=== PATIENT | male | born 1980 | race Caucasian/White ===

== ENCOUNTER 2020-03-09 15:20 | Emergency (ER) | payer MEDICARE, SELFPAY ==
[2020-03-09 15:27] VITALS: BP 202/99; PULSE 90; RESP 20; TEMP 36.7; O2SAT 96; BMI 51.1
--- NOTE | 2020-03-09 15:33 | W.ED.EXTPRO ---
HPI - Extremity Problem General: Chief complaint: Extremity Problem,Nontraumatic Stated complaint: right foot pain Time Seen by Provider: 03/09/20 15:26 History of Present Illness: HPI Narrative: Patient is a morbidly obese 40-year-old male who comes to the ED with right ankle pain. Pain started about 3 days ago and he does not recall any injuries but did say he was mowing his grass 3 days ago and was getting on and off the mower and he might of twisted his ankle then. He rates the pain a 10 out of 10 and describes it as a throbbing pain. It hurts worse when he puts weight on it. He currently has a pain contract and takes hydrocodone for pain. He says he is taken his hydrocodone today and it did not help with the pain. He also says he took some extra Tylenol at home today and that has not helped with the pain either. Associated symptoms: Deny chest pain, fever(s) or rash Review of Systems Const: Denies: fever, chills or fatigue Eyes: Denies: change in vision or eye discomfort ENMT: Denies: throat pain, painful swallowing, nasal discharge or nasal congestion Card: Denies: chest pain, palpitations, edema, swelling of feet/ankles, shortness of breath on exertion or shortness of breath when lying down Resp: Denies: shortness of breath, productive cough or non-productive cough GI: Denies: abdominal pain, nausea, vomiting, diarrhea, constipation or blood in stool : Denies: flank pain, difficulty urinating, painful urination or blood in urine Musc: Reports: extremity pain (right ankle and lateral to top side of foot); Denies: neck pain, back pain or extremity swelling Skin/Breast: Denies: rash or new lesion Neuro: Denies: headache, numbness in extremities or weakness in extremities PFS ED PFSH: Social History Smoking and tobacco status: current every day smoker Physical Exam Narrative: EXAM NARRATIVE: Patient is a morbidly obese 40-year-old male who is laying on the exam bed when I enter the room. He appears in no acute distress or pain. Const: COMMON NORMALS: no apparent distress, oriented x3 and alert NUTRITIONAL APPEARANCE: obese morbidly obese HENMT: COMMON NORMALS: normocephalic HEAD & SCALP: normocephalic MOUTH: oral and palatal mucosa normal THROAT: posterior oropharynx normal and uvula midline Neck/C-Spine: COMMON NORMALS: supple GENERAL: Yes normal visual inspection Resp: COMMON NORMALS: normal respiratory effort, no retractions, no use of accessory muscles and clear to auscultation bilaterally EFFORT & INSPECTION: Yes able to speak in complete sentences AUSCULTATION: clear to auscultation bilaterally Cardio: COMMON NORMALS: regular rate, regular rhythm, S1 normal heart sound, S2 normal heart sound, no gallops, no clicks, no murmurs and peripheral pulses 2+ throughout RATE: regular rate RHYTHM: regular rhythm HEART SOUNDS: S1 normal and S2 normal PERIPHERAL PULSES: pulses 2+ throughout GI: COMMON NORMALS: normal to inspection, nondistended, normoactive bowel sounds, soft to palpation, non-tender and no masses INSPECTION: Yes central obesity AUSCULTATION: Yes normoactive bowel sounds PALPATION: Yes soft : COMMON NORMALS: Yes no CVA tenderness BLADDER/KIDNEY EXAM: Yes no CVA tenderness Back/Pelvis: COMMON NORMALS: no CVA tenderness Extremity: RIGHT LOWER EXTREMITY: Yes ankle joint Right ankle: Yes inspection (No deformity, no swelling or erythema or warmth.), Yes palpation (Tenderness upon palpation of the lateral and medial malleolus), Yes ROM (Limited due to pain) and Yes neurovascular exam (Intact) and Yes foot & digits Right foot and digits: Yes palpation (Tenderness on the lateral side of foot up to the top midfoot region.) Neuro: COMMON NORMALS: oriented x3 and moves all extremities SENSORIUM/ORIENTATION: Yes alert Skin: COMMON NORMALS: no rashes or lesions noted GENERAL SKIN EXAM: no rashes or lesions noted and dry skin Course Vital Signs: Vital signs: Vital Signs Temperature 98.0 F 03/09/20 15:27 Pulse Rate 92 03/09/20 17:31 Respiratory Rate 20 H 03/09/20 15:27 Blood Pressure 180/108 03/09/20 17:31 Pulse Oximetry 97 03/09/20 17:31 MDM - Extremity (Nontraumatic) MDM Narrative: Medical decision making narrative: Patient is a 40-year-old male who comes to the ED with right ankle pain. Physical exam was remarkable for tenderness upon palpation of the right ankle. X-ray of right ankle showed tiny avulsion fracture of the tip of medial malleolus. Patient was given crutches and told to stay off right foot for the next 3 days and then they can start weightbearing as tolerated. Patient is currently under pain management contract and takes hydrocodone's. I told patient to continue his current pain medication regimen and to ice and elevate right foot. Follow-up with your PCP in 7 days for reevaluation. I also discussed with patient about his blood pressure and told him to discuss blood pressure management with PCP at his 7-day follow-up. Patient understood and agreed with plan. Imaging Data^: Xray Ortho: Attestation: I personally reviewed and interpreted this imaging study as follows: Radiologist's impression: [address] [place] [id number] XRay Report Signed Patient: Michi Rain Unit #: [id number] : 1980 Age/Sex: 40 / M ADM Date: 03/09/20 Loc: ER Room/Bed: Attending Dr: Ordering Provider/Ordering MD: Philip Bryant Date of Service: 03/09/20 Procedure(s): XR ankle RT min 3V* [id number] Accession Number(s): [id number] Report Number: [id number] WS: [id number] ANKLE RIGHT TECHNIQUE: 3 views of the right ankle CLINICAL INFORMATION: ankle pain and tenderness COMPARISON: None. FINDINGS: Marked diffuse soft tissue edema. Normal ankle mortise. Suggestion of a tiny avulsion at the tip of the medial malleolus. Normal lateral malleolus. Talar dome appears normal. XR/XR ankle RT min 3V* [id number] IMPRESSION: Extensive soft tissue edema with a tiny avulsion at the tip of the medial malleolus. Dictated By: Jean Marie Flynn MD Signed By: Jean Marie Flynn MD Signed Date/Time: 03/09/201622 DD/ [address] [address] XRay Report Signed Patient: Michi Rain Unit #: [id number] : 1980 Age/Sex: 40 / M ADM Date: 03/09/20 Loc: ER Room/Bed: Attending Dr: Ordering Provider/Ordering MD: Philip Bryant Date of Service: 03/09/20 Procedure(s): XR foot RT 2V Accession Number(s): [id number] Report Number: [id number] WS: [id number] FOOT RIGHT TECHNIQUE: 2 views of the right foot CLINICAL INFORMATION: pain and tenderness to palpation COMPARISON: None. FINDINGS: Mild diffuse soft tissue edema. Normal anatomic alignment. No acute foot fractures. Tiny avulsion adjacent to the tip of the medial malleolus. Mild hallux valgus XR/XR foot RT IMPRESSION: 1. No acute foot fractures. 2. Soft tissue edema. 3. Tiny avulsion adjacent to the tip of the medial malleolus. Dictated By: Jean Marie Flynn MD Signed By: Jean Marie Flynn MD Signed Date/Time: 03/09/201704 DD/ 02 Discharge Plan Discharge Patient Disposition: Home, Self-Care Clinical Impression: Avulsion fracture of medial malleolus of right tibia Qualifiers: Encounter type: initial encounter Fracture type: closed Qualified Code(s): S82.51XA - Displaced fracture of medial malleolus of right tibia, initial encounter for closed fracture Condition: Stable Discharge Orders: Discharge Order (Routine); Ordered 03/09/20 Ordered By: Philip Bryant Referrals: Mary Reyes, [facility] APPRENTICE-C [Primary Care Provider] - Discharge Diet: Regular Discharge Activity: Increase activity as tolerated and Use walker/crutches as instructed Activity Restrictions/Additional Instructions: Follow-up with your PCP in 7 days for reevaluation. Use crutches to help with ambulation. No weightbearing for 3 days then increase weightbearing as tolerated. Ice rest and elevate right ankle. Continue taking your previously prescribed pain medications. You had elevated blood pressure here in the ED. Followup with your PCP in 7 days to check blood pressure and discuss possible blood pressure medication management. 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
--- NOTE | 2020-03-09 15:54 | XR_ITS ---
WS: [id number] ANKLE RIGHT TECHNIQUE: 3 views of the right ankle CLINICAL INFORMATION: ankle pain and tenderness COMPARISON: None. FINDINGS: Marked diffuse soft tissue edema. Normal ankle mortise. Suggestion of a tiny avulsion at the tip of t he medial malleolus. Normal lateral malleolus. Talar dome appears normal. XR/XR ankle RT min 3V* [id number] IMPRESSION: Extensive soft tissue edema with a tiny avulsion at the tip of the medial malle olus.
--- NOTE | 2020-03-09 16:10 | PC.NURSE ---
portable xray at bedside
--- NOTE | 2020-03-09 16:12 | XR_ITS ---
WS: [id number] FOOT RIGHT TECHNIQUE: 2 views of the right foot CLINICAL INFORMATION: pain and tenderness to palpation COMPARISON: None. FINDINGS: Mild diffuse soft tissue edema. Normal anatomic alignment. No acute foot fractures. Tiny avulsion adj acent to the tip of the medial malleolus. Mild hallux valgus XR/XR foot RT 2V [id number] IMPRESSION: 1. No acute foot fractures. 2. Soft tissue edema. 3. Tiny avulsion adjacent to the tip of the medial malleolus.
[2020-03-09] MEDS: ketorolac 60 mg/2 mL INJ IM (16:23)
[2020-03-09 17:31] VITALS: BP 180/108; PULSE 92; O2SAT 97
== END 2020-03-09 17:30 | disposition home or self-care (01) ==
PROVIDERS: Emergency Provider Physician Assistant; PCP Nurse Practitioner
DX: S82.51XA Displaced fracture of medial malleolus of right tibia, initial encounter for closed fracture (principal); X58.XXXA Exposure to other specified factors, initial encounter; E66.9 Obesity, unspecified; Z68.43 Body mass index [BMI] 50.0-59.9, adult; F17.200 Nicotine dependence, unspecified, uncomplicated
CPT/HCPCS: 12345; 73610; 73620; 96372; 99281; 99283; E0114; J1885

== ENCOUNTER 2020-07-05 08:25 | Emergency (ER) | payer MEDICARE, SELFPAY ==
[2020-07-05 08:29] VITALS: BP 237/141; PULSE 115; RESP 18; TEMP 36.7; O2SAT 94; BMI 48.6
[2020-07-05 08:35] VITALS: BP 185/106; PULSE 83; RESP 17; O2SAT 96
--- NOTE | 2020-07-05 08:35 | XR_ITS ---
WS: [id number] PORTABLE CHEST HISTORY: Hypertension COMPARISON: 09/12/2019 Lungs are clear and well expanded. No pleural effusion or pneumothorax. Cardiac size: Normal. Mediastinum/Aorta: Normal mediastinum. No osseous abnormality seen. XR/XR chest 1V portable [id number] IMPRESSION: Unremarkable portable chest.
--- NOTE | 2020-07-05 08:35 | ECG_ITS ---
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 Measurements Intervals Advance Rate: 84 P: 49 PA: 164 QRS: 23 QRSD: 91 T: 50 QT: 354 QTc: 420 Interpretive Statements SINUS RHYTHM Compared to ECG 09/12/2019 15:00:38 ST (T wave) deviation no longer present Electronically Signed On 07-05-2020 21:06:40 CDT by Ryan Edwards M.D. [email or web address] clinicC[facility] [employer]store/[id number] f
--- NOTE | 2020-07-05 08:42 | W.ED.DIZZY ---
HPI - Dizziness General: Chief Complaint: Dizziness Stated Complaint: high bp/dizziness Time Seen by Provider: 07/05/20 08:31 History of Present Illness: HPI Narrative: This patient is a 40-year-old male presents today with dizziness and high blood pressure. He said all day yesterday and last night he felt dizzy and shaky and knew that his blood pressure was high. He has been on blood pressure medicine in the past but not for quite some time after his primary care physician moved to a different clinic. He does not know what he was on before. He also has had some sharp chest pains and palpitations. He said that is been going on for a long time. Occasionally when that happens he gets dizzy and has to lay down. He also complains of acid reflux. He said when he lays down he feels acid come up into his throat and it mcnamara. He takes medicine for acid reflux but does not seem to be helping. On arrival his blood pressure was 237/144 with a heart rate of 115. On recheck it was 185/106 with a heart rate of 83. He is not currently having any chest pain or symptoms. Associated symptoms: Reports chest pain and palpitations; Denies chills, headache(s), malaise, nausea or vomiting Associated neuro symptoms: Deny numbness in extremities Review of Systems General: Reports: 10 or more systems reviewed and unremarkable except in HPI and below Const: Denies: fever(s), chills, fatigue or malaise Eyes: Denies: change in vision ENMT: Denies: odynophagia Card: Reports: chest pain, palpitations, dyspnea on exertion and orthopnea; Denies: swelling of feet/ankles Resp: Denies: dyspnea, productive cough or non-productive cough GI: Reports: heartburn; Denies: abdominal pain, nausea or vomiting : Denies: flank pain Musc: Denies: neck pain or back pain Skin/Breast: Denies: rash Neuro: Denies: headache(s), numbness in extremities or weakness in extremities Eleazar/Lymph: Denies: easy bruising or easy bleeding PFSH ED PFSH: Social History Smoking and tobacco status: current every day smoker Physical Exam Const: COMMON NORMALS: no acute distress, patient oriented x3, no limitations and alert GENERAL APPEARANCE: cooperative and comfortable NUTRITIONAL APPEARANCE: obese morbidly obese HENMT: HEAD & SCALP: normal to inspection FACE & SINUS: normal facial exam Eye: GENERAL EYE: appearance normal, both eyes and all related structures Neck/C-Spine: COMMON NORMALS: supple, no meningeal signs and no JVD Chest: COMMONS NORMALS: normal inspection of the chest Resp: COMMON NORMALS: normal respiratory effort, No use of accessory muscles and clear to auscultation bilaterally AUSCULTATION: clear to auscultation bilaterally Cardio: COMMON NORMALS: no JVD, regular rate, regular rhythm and No murmurs present (Cardio) RATE: regular rate RHYTHM: regular rhythm GI: COMMON NORMALS: Normal to inspection, nondistended, normoactive bowel sounds present, Soft to palpation and non-tender INSPECTION: Yes normal to inspection AUSCULTATION: Yes normoactive bowel sounds PALPATION: Yes Soft to palpation Back/Pelvis: COMMON NORMALS: thoracic and lumbar spine normal to inspection Extremity: COMMON NORMALS: normal to inspection Neuro: COMMON NORMALS: patient oriented x3, moves all extremities, no focal motor deficits and no sensory deficits noted SENSORIUM/ORIENTATION: Yes alert MENINGEAL SIGNS: Yes no meningeal signs Psych: COMMON NORMALS: mental status grossly normal, cooperative and normal affect Skin: COMMON NORMALS: no rashes or lesions noted and turgor normal GENERAL SKIN EXAM: no rashes or lesions noted and turgor normal Course ED course: Patient's initial blood pressure at triage was high however his other blood pressures, without treatment, were much more acceptable. They were still elevated but not critically so. Symptoms resolved. He was started on lisinopril. He was given a referral for primary care and appointment was made for him. I also changed his omeprazole to lansoprazole twice a day. Vital Signs: Vital signs: Vital Signs Temperature 98.1 F 07/05/20 08:29 Pulse Rate 79 07/05/20 11:28 Respiratory Rate 19 H 07/05/20 11:28 Blood Pressure 161/98 07/05/20 11:28 Pulse Oximetry 96 07/05/20 11:28 MDM - Dizziness Lab Data: Labs: Lab Results 07/05/20 07/05/20 07/05/20 Range/Units 08:33 08:33 08:33 WBC 9.2 (4.0-10.0) 10^3/ uL RBC 5.46 H (4.1-5.3) 10^6/u L Hgb 17.0 H (11.7-16.6) g/dL Hct 51.9 (42.0-52.0) % MCV 95.1 H (80-94) fL MCH 31.1 (28.0-34.0) pg MCHC 32.8 (30.0-36.0) g/dL RDW 14.3 (12.1-15.1) % Plt Count 359 (130-400) 10^3/c mm MPV 10.1 (7.4-10.4) fL Neut % (Auto) 50.3 % Lymph % (Auto) 36.3 % [place] % (Auto) 9.2 % Eos % (Auto) 2.4 % Baso % (Auto) 0.5 % Neut # (Auto) 4.61 (1.8-7.7) 10^3/u L Lymph # (Auto) 3.3 (0.8-4.8) 10^3/u L [place] # (Auto) 0.8 (0.2-0.9) 10^3/u L Eos # (Auto) 0.2 (0.0-0.8) 10^3/u L Baso # (Auto) 0.1 (0.0-0.1) 10^3/u L Nucleated RBC % (a uto) 0 % Nucleated RBCs # 0.0 /100WBC PT 12.10 (12.1-14.9) SECO NDS INR 0.87 (0.8-1.2) Sodium 139 (136-145) mmol/L Potassium 3.9 (3.5-5.1) mmol/L Chloride 102 (98-107) mmol/L Carbon Dioxide 27 (22-29) mmol/L Anion Gap 13.9 (5-19) BUN 7 (6-20) mg/dL Creatinine 0.9 (0.7-1.2) mg/dL GFR Calculation 93.5 (90-130) mL/min Glucose 172 H (65-115) mg/dL Calculated Osmolal ity 288 (285-295) mOsm/k g Calcium 9.1 (8.5-10.5) mg/dL Total Bilirubin 0.3 (0.15-1.2) mg/dL AST 25 (0-40) U/L ALT 57 H (0-41) U/L Alkaline Phosphata se 61 (40-130) IU/L Troponin T Baselin e (0-15) ng/L Troponin T 120 Min wain[place] (0-15) ng/L Delta Troponin T (0-10) ABS# NT-Pro-B Natriuret Pep 56 (0-125) pg/mL Total Protein 7.5 (6.6-8.7) g/dL Albumin 4.5 (3.5-5.2) g/dL Globulin 3.0 (1.3-4.6) g/dL Lipase 13 (13-60) U/L Urine Color (Yellow) Urine Appearance (CLEAR) Urine pH (5-7) Ur Specific Gravit y (1.005-1.030) Urine Protein (Negative) Urine Glucose (UA) (Normal) Urine Ketones (Negative) Urine Blood (Negative) Urine Nitrate (Negative) Urine Bilirubin (NEGATIVE) Urine Urobilinogen (Negative) mg/dL Ur Leukocyte Juliana ase (Negative) 07/05/20 07/05/20 07/05/20 Range/Units 08:33 08:51 10:34 WBC (4.0-10.0) 10^3/ uL RBC (4.1-5.3) 10^6/u L Hgb (11.7-16.6) g/dL Hct (42.0-52.0) % MCV (80-94) fL MCH (28.0-34.0) pg MCHC (30.0-36.0) g/dL RDW (12.1-15.1) % Plt Count (130-400) 10^3/c mm MPV (7.4-10.4) fL Neut % (Auto) % Lymph % (Auto) % [place] % (Auto) % Eos % (Auto) % Baso % (Auto) % Neut # (Auto) (1.8-7.7) 10^3/u L Lymph # (Auto) (0.8-4.8) 10^3/u L [place] # (Auto) (0.2-0.9) 10^3/u L Eos # (Auto) (0.0-0.8) 10^3/u L Baso # (Auto) (0.0-0.1) 10^3/u L Nucleated RBC % (a uto) % Nucleated RBCs # /100WBC PT (12.1-14.9) SECO NDS INR (0.8-1.2) Sodium (136-145) mmol/L Potassium (3.5-5.1) mmol/L Chloride (98-107) mmol/L Carbon Dioxide (22-29) mmol/L Anion Gap (5-19) BUN (6-20) mg/dL Creatinine (0.7-1.2) mg/dL GFR Calculation (90-130) mL/min Glucose (65-115) mg/dL Calculated Osmolal ity (285-295) mOsm/k g Calcium (8.5-10.5) mg/dL Total Bilirubin (0.15-1.2) mg/dL AST (0-40) U/L ALT (0-41) U/L Alkaline Phosphata se (40-130) IU/L Troponin T Baselin e 13 (0-15) ng/L Troponin T 120 Min wainwright 10.91 (0-15) ng/L Delta Troponin T -2.09 L (0-10) ABS# NT-Pro-B Natriuret Pep (0-125) pg/mL Total Protein (6.6-8.7) g/dL Albumin (3.5-5.2) g/dL Globulin (1.3-4.6) g/dL Lipase (13-60) U/L Urine Color Yellow (Yellow) Urine Appearance Clear (CLEAR) Urine pH 7.5 (5-7) Ur Specific Gravit y 1.010 (1.005-1.030) Urine Protein Neg (Negative) Urine Glucose (UA) Norm (Normal) Urine Ketones Negative (Negative) Urine Blood Neg (Negative) Urine Nitrate Negative (Negative) Urine Bilirubin Neg (NEGATIVE) Urine Urobilinogen Norm (Negative) mg/dL Ur Leukocyte Juliana ase Negative (Negative) EKG Data^: EKG 1: EKG interpretation time: 08:39 Interpretation: Normal sinus rhythm with a rate of 84. Normal intervals. Normal axis. No ST changes. Discharge Plan Discharge Patient Disposition: Home Clinical Impression: Hypertension Qualifiers: Hypertension type: unspecified Qualified Code(s): I10 - Essential (primary) hypertension Acid reflux Qualifiers: Esophagitis presence: esophagitis presence not specified Qualified Code(s): K21.9 - Gastro-esophageal reflux disease without esophagitis Obesity Qualifiers: Obesity type: unspecified obesity type Obesity classification: adult class 3 (BMI >= 40) Serious obesity comorbidity presence: unspecified whether serious comorbidity present Body mass index: BMI 45.0-49.9 Qualified Code(s): E66.01 - Morbid (severe) obesity due to excess calories Condition: Stable Prescriptions: New lansoprazole 30 mg capsule,delayed release(DR/EC) 30 mg PO BID Qty: 60 RF: 0 lisinopril 20 mg tablet 20 mg PO DAILY Qty: 30 RF: 0 Discontinued omeprazole 20 mg Tablet,Delayed Release (Dr/Ec) 20 mg PO DAILY RF: 0 No Action gabapentin 600 mg tablet 600 mg PO TID RF: 0 hydrocodone-acetaminophen 10-325 mg tablet 1 tab PO Q6H PRN (Reason: Pain) RF: 0 Discharge Orders: Discharge Order (Routine); Ordered 07/05/20 Ordered By: Sherice Currie Discharge Diet: Low Salt Discharge Activity: Resume usual activity Patient Instructions: Gastroesophageal Reflux Disease (ED), Hypertension (ED) Activity Restrictions/Additional Instructions: Take the blood pressure medicine as prescribed. Stop the omeprazole and start the lansoprazole for your acid reflux symptoms. Avoid eating late at night or within a few hours of going to bed. Follow-up with a primary care provider for further management of your blood pressure. The emergency department housing case manager can assist you with this. 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
[2020-07-05 08:43] LABS: Basophils # 0.1 10^3/uL (0.0-0.1); Basophils % 0.5 %; Eosinophils # 0.2 10^3/uL (0.0-0.8); Eosinophils % 2.4 %; Hematocrit 51.9 % (42.0-52.0); Lymphocytes # 3.3 10^3/uL (0.8-4.8); Lymphocytes % 36.3 %; Mean Corpuscular HGB Conc 32.8 g/dL (30.0-36.0); Mean Corpuscular Hemoglobin 31.1 pg (28.0-34.0); Mean Corpuscular Volume 95.1 fL (80-94); Mean Platelet Volume 10.1 fL (7.4-10.4); Monocytes # 0.8 10^3/uL (0.2-0.9); Monocytes % 9.2 %; Neutrophils # 4.61 10^3/uL (1.8-7.7); Neutrophils % 50.3 %; Nucleated Red Blood Cells % 0 %; Platelet Count 359 10^3/cmm (130-400); Red Blood Count 5.46 10^6/uL (4.1-5.3); Red Cell Distribution Width 14.3 % (12.1-15.1); White Blood Count 9.2 10^3/uL (4.0-10.0)
[2020-07-05 08:52] LABS: INR 0.87 (0.8-1.2)
[2020-07-05 09:00] LABS: Troponin(5th) Baseline 13 ng/L (0-15)
[2020-07-05 09:07] LABS: Add Urine Microscopic? NO
[2020-07-05 09:08] LABS: Alanine Aminotransferase 57 U/L (0-41); Albumin Level 4.5 g/dL (3.5-5.2); Alkaline Phosphatase 61 IU/L (40-130); Anion Gap 13.9 (5-19); Aspartate Amino Transferase 25 U/L (0-40); Blood Urea Nitrogen 7 mg/dL (6-20); Calcium 9.1 mg/dL (8.5-10.5); Carbon Dioxide 27 mmol/L (22-29); Chloride 102 mmol/L (98-107); Glomerular Filtration Rate 93.5 mL/min (90-130); Glucose 172 mg/dL (65-115); Lipase 13 U/L (13-60); NT Pro B Type Natriuretic Pept 56 pg/mL (0-125); Osmolality Calculated 288 mOsm/kg (285-295); Potassium 3.9 mmol/L (3.5-5.1); Sodium 139 mmol/L (136-145); Total Bilirubin 0.3 mg/dL (0.15-1.2); Total Protein 7.5 g/dL (6.6-8.7)
[2020-07-05 09:16] LABS: Bilirubin Urine Neg (NEGATIVE); Blood Urine Neg (Negative); Glucose Urine UA Norm (Normal); Ketones Urine Negative (Negative); Leukocyte Esterase Urine Negative (Negative); Nitrate Urine Negative (Negative); Protein Urine Neg (Negative); Urine Appearance Clear (CLEAR); Urine Color Yellow (Yellow); Urobilinogen Urine Norm (Negative); pH Urine 7.5 (5-7)
[2020-07-05 10:30] VITALS: BP 150/91; PULSE 77; RESP 16; O2SAT 96
--- NOTE | 2020-07-05 10:35 | ECG_ITS ---
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 Measurements Intervals [place] Rate: 70 P: 47 WI: 159 QRS: 26 QRSD: 94 T: 48 QT: 375 QTc: 405 Interpretive Statements SINUS RHYTHM POSSIBLE RIGHT VENTRICULAR CONDUCTION DELAY [RSR (QR) IN V1/V2] Compared to ECG 07/05/2020 08:38:15 No significant changes Electronically Signed On 07-05-2020 21:16:01 CDT by Ryan Edwards M.D. [id number]
[2020-07-05 11:04] LABS: Troponin 5 2HR 10.91 ng/L (0-15)
[2020-07-05 11:13] LABS: Troponin 5 2HR Delta -2.09 ABS# (0-10)
--- NOTE | 2020-07-05 11:25 | DCPLANNER ---
restaurant general manager was asked to help patient get established with a primary care physician. restaurant general manager spoke with patient, he stated that he would like help in getting a primary care physician. restaurant general manager called the [facility], spoke with Allison, a follow up appointment was scheduled for Friday, July 10, 2020 at 9:20 with STEAM FITTER SUPERVISOR, Leatha Cifuentes. restaurant general manager informed patient of the scheduled appointment, patient stated that he would attend the appointment.
[2020-07-05 11:28] VITALS: BP 161/98; PULSE 79; RESP 19; O2SAT 96
--- NOTE | 2020-07-12 14:27 | DCPLANNER ---
Patient had an appointment scheduled for 07.10.12 with [facility] Wale Koo - patient did not attend the appointment.
== END 2020-07-05 11:28 | disposition home or self-care (01) ==
PROVIDERS: Emergency Provider Emergency Medicine
DX: I10 Essential (primary) hypertension (principal); K21.9 Gastro-esophageal reflux disease without esophagitis; E66.01 Morbid (severe) obesity due to excess calories; Z68.42 Body mass index [BMI] 45.0-49.9, adult; F17.210 Nicotine dependence, cigarettes, uncomplicated; R07.9 Chest pain, unspecified
CPT/HCPCS: 12345; 36415; 71045; 80053; 81003; 83690; 83880; 84484; 85025; 85610; 93005; 96374; 96375; 99283; 99284

== ENCOUNTER → 2021-05-09 10:35 | Outpatient (BNVA) | payer MEDICARE, MEDICAID, SELFPAY | PROVIDERS: Visit Provider Nurse Practitioner Family | DX: I10 Essential (primary) hypertension (principal); L02.211 Cutaneous abscess of abdominal wall; K21.9 Gastro-esophageal reflux disease without esophagitis | CPT/HCPCS: 80053; 80061; 84443; 85025; 87070; 87075; 87205 ==

== ENCOUNTER → 2021-06-10 10:40 | Outpatient (BNVA) | payer MEDICARE, MEDICAID, SELFPAY | PROVIDERS: Visit Provider Nurse Practitioner Family | DX: I10 Essential (primary) hypertension (principal); E66.01 Morbid (severe) obesity due to excess calories; K21.9 Gastro-esophageal reflux disease without esophagitis; Z68.43 Body mass index [BMI] 50.0-59.9, adult; F17.210 Nicotine dependence, cigarettes, uncomplicated | CPT/HCPCS: 85025 ==

== ENCOUNTER → 2021-09-12 14:10 | Outpatient (BNVA) | payer MEDICARE, MEDICAID, SELFPAY | PROVIDERS: PCP Nurse Practitioner Family; Referring Provider Nurse Practitioner Family; Visit Provider Anesthesiology Pain Medicine | DX: G89.29 Other chronic pain (principal); M54.2 Cervicalgia; M54.50 Low back pain, unspecified; Z79.891 Long term (current) use of opiate analgesic | CPT/HCPCS: 99203 ==

== ENCOUNTER → 2021-10-10 13:57 | Outpatient (BNVA) | payer MEDICARE, MEDICAID, SELFPAY | PROVIDERS: PCP Nurse Practitioner Family; Visit Provider Anesthesiology Pain Medicine | DX: G89.29 Other chronic pain (principal); M47.816 Spondylosis without myelopathy or radiculopathy, lumbar region; M48.062 Spinal stenosis, lumbar region with neurogenic claudication; M47.812 Spondylosis without myelopathy or radiculopathy, cervical region | CPT/HCPCS: 99213 ==

== ENCOUNTER 2021-10-28 08:37 | Outpatient (CLI) | payer MEDICARE, MEDICAID, SELFPAY ==
--- NOTE | 2021-10-28 08:50 | XR_ITS ---
WS: [id number] LATERAL LUMBAR SPINE: 3 view. Lateral radiographs are performed in upright neutral, flexion and extension to the patient's toleranc e. HISTORY: Chronic neck and back pain. No injury. COMPARISON: 03/31/2016 2 mm retrolisthesis of L3 and L4 without instability. Similar to the prior study. Vertebral body heights and disc spaces are normal. Mild facet joint arthritis L4-5 and L5-S1. XR/XR lumbar spine f/e only [id number] IMPRESSION: 1. No lumbar spine instability. 2. 2 mm retrolisthesis of L3 and L4.
--- NOTE | 2021-10-28 10:00 | XR_ITS ---
WS: [id number] CERVICAL SPINE 5 VIEWS HISTORY: M47.812 - Spondylosis without myelopathy or radiculopathy... COMPARISON: 04/18/2019. Cervical spine in AP, lateral. Lateral in neutral, flexion and extension. Straightening and reversal of the normal cervical lordosis. Reversal centered at C4-5. Unchanged less than 2 mm anterolisthesis of C2. Mild disc space narrowing at C4-5, C5-6 and C6-7 with small endplat e osteophytes. No fractures. Facet joints are normally aligned. With flexion and extension no instabi lity is demonstrated. Very similar appearance to the prior examination from 04/26/2019. No fracture. Lateral masses are aligned odontoid is intact. XR/XR cervical spine 4-5V [id number] IMPRESSION: 1. Straightening and reversal normal cervical lordosis. 2. No instability with flexion or extension. 3. Moderate spondylitic changes from C4-5 to C6-7.
== END 2021-10-28 08:38 | disposition home or self-care (01) ==
PROVIDERS: PCP Nurse Practitioner Family; Visit Provider Anesthesiology Pain Medicine
DX: M47.812 Spondylosis without myelopathy or radiculopathy, cervical region (principal); M47.816 Spondylosis without myelopathy or radiculopathy, lumbar region; M54.2 Cervicalgia
CPT/HCPCS: 72050; 72120

== ENCOUNTER → 2021-11-07 09:33 | Outpatient (BNVA) | payer MEDICARE, MEDICAID, SELFPAY | PROVIDERS: PCP Nurse Practitioner Family; Visit Provider Anesthesiology Pain Medicine | DX: G89.29 Other chronic pain (principal); M47.812 Spondylosis without myelopathy or radiculopathy, cervical region; M50.90 Cervical disc disorder, unspecified, unspecified cervical region; M47.816 Spondylosis without myelopathy or radiculopathy, lumbar region; E66.01 Morbid (severe) obesity due to excess calories; Z68.43 Body mass index [BMI] 50.0-59.9, adult | CPT/HCPCS: 99214 ==

== ENCOUNTER → 2022-03-07 12:20 | Outpatient (BNVA) | payer MEDICARE, MEDICAID, SELFPAY | PROVIDERS: PCP Nurse Practitioner Family; Visit Provider Nurse Practitioner Family | DX: I10 Essential (primary) hypertension (principal); E66.01 Morbid (severe) obesity due to excess calories; M54.2 Cervicalgia; M54.9 Dorsalgia, unspecified; G89.29 Other chronic pain; K21.9 Gastro-esophageal reflux disease without esophagitis; Z79.899 Other long term (current) drug therapy | CPT/HCPCS: 80053; 80061; 82306; 82607; 83036; 84443; 85025 ==

== ENCOUNTER → 2022-04-01 09:18 | Outpatient (BNVA) | payer MEDICARE, MEDICAID, SELFPAY | PROVIDERS: PCP Nurse Practitioner Family; Visit Provider Nurse Practitioner Family | DX: E87.5 Hyperkalemia (principal) | CPT/HCPCS: 80048 ==

== ENCOUNTER 2022-04-21 18:01 | Emergency (ER) | payer MEDICARE, MEDICAID, SELFPAY ==
[2022-04-21 18:20] VITALS: BP 128/85; PULSE 96; RESP 19; TEMP 36.6; O2SAT 96; BMI 51.7
[2022-04-21 18:30] VITALS: BP 136/82; PULSE 83; RESP 16; O2SAT 96
--- NOTE | 2022-04-21 18:33 | XRR_ITS ---
PROCEDURE INFORMATION: Exam: XR Left Tibia and Fibula Exam date and time: 04/21/2022 6:38 PM Age: 42 years old Clinical indication: Pain; Lower leg; Left; Additional info: Injury TECHNIQUE: Imaging protocol: XR Left tibia and fibula. Views: 2 views. COMPARISON: CR Knee 3 views, LEFT* [id number] 02/23/2016 6:17 PM FINDINGS: Bones/joints: Osseous structures are intact. Negative for fracture. Soft tissues: Normal. XR/XR tibia fibula LT 2V [id number] IMPRESSION: No acute findings.
--- NOTE | 2022-04-21 18:33 | XRR_ITS ---
PROCEDURE INFORMATION: Exam: XR Left Ankle Exam date and time: 04/21/2022 6:38 PM Age: 42 years old Clinical indication: Pain; Ankle; Left; Additional info: Injury TECHNIQUE: Imaging protocol: XR Left ankle. Views: 3 or more views. COMPARISON: CR Knee 3 views, LEFT* [id number] 02/23/2016 6:17 PM FINDINGS: Bones/joints: Osseous structures are intact. Negative for fracture. Joint spaces are preserved. Soft tissues: Normal. XR/XR ankle LT min 3V* [id number] IMPRESSION: No acute findings.
--- NOTE | 2022-04-21 18:33 | XRR_ITS ---
PROCEDURE INFORMATION: Exam: XR Left Foot Exam date and time: 04/21/2022 6:38 PM Age: 42 years old Clinical indication: Pain; Foot; Left; Additional info: Injury TECHNIQUE: Imaging protocol: XR Left foot. Views: 3 or more views. COMPARISON: CR Knee 3 views, LEFT* [id number] 02/23/2016 6:17 PM FINDINGS: Bones/joints: Osseous structures are intact. Negative for fracture. Joint spaces are preserved. Soft tissues: Normal. XR/XR foot LT min 3V* [id number] IMPRESSION: No acute findings.
--- NOTE | 2022-04-21 18:34 | W.ED.EXTPRO ---
HPI - Extremity Problem General: Chief complaint: Extremity Injury, Lower Stated complaint: Left Ankle Injury Time Seen by Provider: 04/21/22 18:33 History of Present Illness: 42-year-old male patient comes in with injury to the left ankle. On exam patient has no obvious deformity. Minimal swelling is noted. Pulses and cap refill is intact. Patient appears in mild pain at rest. Associated symptoms: Deny chest pain or rash Review of Systems General: Reports: 10 or more systems reviewed and unremarkable except in HPI and below Card: Denies: chest pain Resp: Denies: dyspnea Musc: Reports: extremity pain and joint pain Skin/Breast: Denies: rash PFSH ED PFSH: Social History Smoking and tobacco status: current every day smoker cigarettes Packs smoked per day: 0.50 Years cigarettes smoked: 20 Alcohol intake: current Alcohol intake frequency: holidays/special occasions only Alcohol type: beer Lives independently: Yes Marital status: service: No Current occupational status: disabled History of recent travel: No Current gender identity: Male Special judi needs: No Agree to transfusion: Yes Physical Exam Const: COMMON NORMALS: no acute distress Resp: COMMON NORMALS: normal respiratory effort Cardio: COMMON NORMALS: regular rate RATE: regular rate Extremity: LEFT LOWER EXTREMITY: Yes ankle joint (Mild swelling, no deformity, distal pulses and sensation intact.) Left ankle: Yes inspection, Yes palpation and Yes ROM Skin: COMMON NORMALS: no rashes or lesions noted GENERAL SKIN EXAM: no rashes or lesions noted Course Vital Signs: Vital signs: Vital Signs Temperature 97.9 F 04/21/22 18:20 Pulse Rate 83 04/21/22 18:30 Respiratory Rate 16 04/21/22 18:30 Blood Pressure 136/82 04/21/22 18:30 Pulse Oximetry 96 04/21/22 18:30 MDM - Extremity (Nontraumatic) Medical Decision Making 42-year-old man comes in with injury to the left ankle. On exam patient has some lateral swelling, no deformity, distal pulses and sensation intact. Differential diagnosis includes fracture, sprain, contusion. X-ray of the ankle, foot, and tib-fib indicated no fracture or dislocation. Reviewed exam with patient with recommendations for treatment for sprain. Recommend patient follow-up with primary care for further instruction. Patient reported understanding. Discharge Plan Discharge Patient Disposition: Home Clinical Impression: Ankle sprain and strain Condition: Stable Prescriptions: New ibuprofen 800 mg tablet 800 mg PO Q6H PRN (Reason: pain) Qty: 20 0RF No Action pantoprazole [Protonix] 40 mg tablet,delayed release (DR/EC) 40 mg PO DAILY Qty: 30 5RF lisinopril 20 mg tablet 20 mg PO BID Qty: 60 5RF ergocalciferol (vitamin D2) 1,250 mcg (50,000 unit) capsule 1,250 mcg PO .weekly Qty: 12 1RF Discharge Orders: Discharge ED (Routine); Ordered 04/21/22 Ordered By: Aiden Solorzano Referrals: Leatha Cifuentes FNP [Primary Care Provider] - Patient Instructions: Opioid Safety Activity Restrictions/Additional Instructions: Home and rest. Ice or heat to help with pain. Use acetaminophen and ibuprofen for further pain relief. Juanjo wrap for comfort and swelling. Use crutches until you can bear weight comfortably. Follow-up with primary care in 2 to 3 days for recheck. Return to ER for new concerns. Stand Alone Forms: Work/School Release Coding Level of Care Code ED Waistband Setter Lockstitch for Janeth Sanchez
[2022-04-21] MEDS: ibuprofen 800 mg tablet PO (19:23)
== END 2022-04-21 19:24 | disposition home or self-care (01) ==
PROVIDERS: Emergency Provider Nurse Practitioner Family; PCP Nurse Practitioner Family
DX: S93.402A Sprain of unspecified ligament of left ankle, initial encounter (principal); X58.XXXA Exposure to other specified factors, initial encounter
CPT/HCPCS: 73590; 73610; 73630; 99283; E0114

== ENCOUNTER → 2022-07-24 12:12 | Outpatient (BNVA) | payer MEDICARE, MEDICAID, SELFPAY | PROVIDERS: PCP Nurse Practitioner Family; Visit Provider Nurse Practitioner Family | DX: I10 Essential (primary) hypertension (principal); E66.01 Morbid (severe) obesity due to excess calories; R06.02 Shortness of breath | CPT/HCPCS: 71046; 80053; 80061; 82306; 82607; 83735; 84439; 84443; 85025 ==

== ENCOUNTER 2022-10-25 05:37 | Emergency (ER) | payer MEDICARE, MEDICAID, SELFPAY ==
[2022-10-25 05:41] VITALS: BMI 48.6
[2022-10-25 05:45] VITALS: BP 158/68; PULSE 78; RESP 18; TEMP 37.1; O2SAT 97
--- NOTE | 2022-10-25 05:49 | ECG_ITS ---
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 Measurements Intervals [place] Rate: 75 P: 52 [place]: 168 QRS: 28 QRSD: 94 T: 51 QT: 363 QTc: 406 Interpretive Statements SINUS RHYTHM POSSIBLE RIGHT VENTRICULAR CONDUCTION DELAY [RSR (QR) IN V1/V2] Compared to ECG 07/05/2020 10:21:57 No significant changes Electronically Signed On 10-25-2022 11:03:37 JD EDWARDS by Mich Patel M.D. [id number] f
--- NOTE | 2022-10-25 06:01 | XRR_ITS ---
PROCEDURE INFORMATION: Exam: XR Chest Exam date and time: 10/25/2022 7:13 AM Age: 42 years old Clinical indication: Shortness of breath; Additional info: Cp TECHNIQUE: Imaging protocol: Radiologic exam of the chest. Views: 1 view. COMPARISON: CR XR chest 2V* [id number] 07/24/2022 12:21 PM FINDINGS: Lungs: Unremarkable. No consolidation. Pleural spaces: Unremarkable. No pleural effusion. No pneumothorax. Heart/Mediastinum: Unremarkable. No cardiomegaly. Bones/joints: Unremarkable. XR/XR chest 1V portable [id number] IMPRESSION: No acute findings.
--- NOTE | 2022-10-25 06:06 | W.ED.CHESTPA ---
Documented by User: Bay Valle MD 10/25/22 06:08 HPI - Chest Pain General: Chief Complaint: Chest Pain Stated Complaint: Weakness\BP\Chest Pains\Fainted Time Seen by Provider: 10/25/22 05:59 Source: patient Mode of arrival: ambulatory Limitations: no limitations History of Present Illness: 42-year-old male who states that he has been having chest pain or shortness of breath over the last 3 days. He states he had a syncopal episode 3 days ago. He denies any worsening improving factors. He denies any fevers had a mild cough. Associated symptoms: Deny abdominal pain, dyspnea, fever(s), nausea or vomiting Review of Systems Const: Denies: fever(s), chills, body aches or change in appetite Eyes: Denies: blurry vision or eye discomfort ENMT: Denies: throat pain or dental pain Card: Reports: chest pain Resp: Denies: dyspnea GI: Denies: abdominal pain, nausea, vomiting or diarrhea : Denies: dysuria Musc: Denies: neck pain or back pain Skin/Breast: Denies: rash Neuro: Denies: headache(s) Psych: Denies: depression Eleazar/Lymph: Denies: easy bruising All/Imm: Denies: urticaria PFSH ED PFSH: Medical History Peripheral edema Vitamin D deficiency Social History Smoking and tobacco status: current every day smoker (6-8 cigarettes/day) cigarettes Packs smoked per day: 0.50 Years cigarettes smoked: 20 Alcohol intake: current Alcohol intake frequency: holidays/special occasions only Alcohol type: beer Lives independently: Yes Marital status: service: No Current occupational status: disabled History of recent travel: No Current gender identity: Male Special judi needs: No Agree to transfusion: Yes Physical Exam Const: COMMON NORMALS: no acute distress, patient oriented x3 and healthy appearing HENMT: COMMON NORMALS: normocephalic and atraumatic HEAD & SCALP: normocephalic and atraumatic Eye: COMMON NORMALS: Equal, round and reactive pupils present and EOMs intact bilaterally PUPIL: Yes Equal, round and reactive pupils present Neck/C-Spine: COMMON NORMALS: full ROM and supple Chest: COMMONS NORMALS: normal inspection of the chest and normal palpation of entire chest wall Resp: COMMON NORMALS: normal respiratory effort, No retractions, No use of accessory muscles and clear to auscultation bilaterally AUSCULTATION: clear to auscultation bilaterally Cardio: COMMON NORMALS: regular rate, regular rhythm and No murmurs present (Cardio) RATE: regular rate RHYTHM: regular rhythm GI: COMMON NORMALS: Normal to inspection, nondistended, normoactive bowel sounds present, Soft to palpation, non-tender and no masses PALPATION: Yes Soft to palpation Extremity: COMMON NORMALS: normal to inspection and full ROM Neuro: COMMON NORMALS: patient oriented x3, moves all extremities and no focal motor deficits Psych: COMMON NORMALS: mental status grossly normal, Normal thought process present and cooperative THOUGHT PROCESS: Normal thought process present Skin: COMMON NORMALS: no rashes or lesions noted and no wounds GENERAL SKIN EXAM: no rashes or lesions noted Course Vital Signs: Vital signs: Vital Signs Temperature 98.1 F 10/25/22 06:22 Pulse Rate 89 10/25/22 09:36 Respiratory Rate 18 10/25/22 09:36 Blood Pressure 139/60 10/25/22 09:36 Pulse Oximetry 92 10/25/22 09:36 Oxygen Delivery Me thod 10/25/22 07:05 MDM - Chest Pain Lab Data 10/25/22 06:00 10/25/22 06:00 Radiology Impressions Chest X-Ray 10/25/22 06:01 IMPRESSION: No acute findings. Laboratory Results WBC 8.9 10^3/uL (4.0-10.0) 10/25/22 06:00 RBC 5.41 10^6/uL (4.1-5.3) H 10/25/22 06:00 Hgb 16.9 g/dL (11.7-16.6) H 10/25/22 06:00 Hct 50.0 % (42.0-52.0) 10/25/22 06:00 MCV 92.4 fl (80-94) 10/25/22 06:00 MCH 31.2 pg (28.0-34.0) 10/25/22 06:00 MCHC 33.8 g/dL (30.0-36.0) 10/25/22 06:00 RDW 14.9 % (12.1-15.1) 10/25/22 06:00 Plt Count 304 10^3/cmm (130-400) 10/25/22 06:00 MPV 9.8 fL (7.4-10.4) 10/25/22 06:00 Neut % (Auto) 51.9 % 10/25/22 06:00 Lymph % (Auto) 30.6 % 10/25/22 06:00 [place] % (Auto) 11.6 % 10/25/22 06:00 Eos % (Auto) 3.5 % 10/25/22 06:00 Baso % (Auto) 0.7 % 10/25/22 06:00 Neut # (Auto) 4.64 10^3/uL (1.8-7.7) 10/25/22 06:00 Lymph # (Auto) 2.7 10^3/uL (0.8-4.8) 10/25/22 06:00 [place] # (Auto) 1.0 10^3/uL (0.2-0.9) H 10/25/22 06:00 Eos # (Auto) 0.3 10^3/uL (0.0-0.8) 10/25/22 06:00 Baso # (Auto) 0.1 10^3/uL (0.0-0.1) 10/25/22 06:00 Nucleated RBC % (auto) 0 % 10/25/22 06:00 Nucleated RBCs # 0.0 /100WBC 10/25/22 06:00 D-Dimer <= 0.27 ug/mIFEU (0-0.59) 10/25/22 06:00 Sodium 131 mmol/L (136-145) L 10/25/22 06:00 Potassium 4.2 mmol/L (3.5-5.1) 10/25/22 06:00 Chloride 97 mmol/L (98-107) L 10/25/22 06:00 Carbon Dioxide 23 mmol/L (22-29) 10/25/22 06:00 Anion Gap 15.2 (5-19) 10/25/22 06:00 BUN 13 mg/dL (6-20) 10/25/22 06:00 Creatinine 0.9 mg/dL (0.7-1.2) 10/25/22 06:00 GFR Calculation 92.5 mL/min (90-130) 10/25/22 06:00 Glucose 114 mg/dL (65-115) 10/25/22 06:00 Calculated Osmolality 273 mOsm/kg (285-295) L 10/25/22 06:00 Calcium 9.5 mg/dL (8.5-10.5) 10/25/22 06:00 Total Bilirubin 0.4 mg/dL (0.15-1.2) 10/25/22 06:00 AST 31 U/L (0-40) 10/25/22 06:00 ALT 44 U/L (0-41) H 10/25/22 06:00 Alkaline Phosphatase 65 U/L (40-130) 10/25/22 06:00 Troponin T Baseline 10 ng/L (0-15) 10/25/22 06:00 Troponin T 120 Minute 8.64 ng/L (0-15) 10/25/22 08:08 Delta Troponin T -1.36 ABS# (0-10) L 10/25/22 08:08 NT-Pro-B Natriuret Pep 5 pg/mL (0-125) 10/25/22 06:00 Total Protein 7.6 g/dL (6.6-8.7) 10/25/22 06:00 Albumin 4.5 g/dL (3.5-5.2) 10/25/22 06:00 Globulin 3.1 g/dL (1.3-4.6) 10/25/22 06:00 Influenza Type A Ag Negative (Negative) 10/25/22 06:18 Influenza Type B Ag Negative (Negative) 10/25/22 06:18 EKG Data EKG 1: I personally reviewed and interpreted this EKG as follows: EKG interpretation date: 10/25/22 EKG interpretation time: 05:49 Interpretation: nsr hr [address] or t wave abnormalities qrs 94 qtc 392 Discharge Plan Discharge Patient Disposition: Home Clinical Impression: Syncope, Hypertension, Morbid obesity Condition: Stable Prescriptions: No Action pantoprazole 40 mg tablet,delayed release (DR/EC) See Rx Instructions .ROUTE .COMPLEX Qty: 30 5RF Dose Instruction: TAKE ONE TABLET BY MOUTH DAILY. Rx Instructions: TAKE ONE TABLET BY MOUTH DAILY. lisinopril 20 mg tablet See Rx Instructions .ROUTE .COMPLEX Qty: 60 5RF Dose Instruction: TAKE ONE TABLET BY MOUTH TWICE DAILY. Rx Instructions: TAKE ONE TABLET BY MOUTH TWICE DAILY. triamterene-hydrochlorothiazid 37.5-25 mg tablet See Rx Instructions .ROUTE .COMPLEX Qty: 30 2RF Dose Instruction: TAKE ONE TABLET BY MOUTH EVERY MORNING NEEDED FOR swelling in LEGS Rx Instructions: TAKE ONE TABLET BY MOUTH EVERY MORNING NEEDED FOR swelling in LEGS ergocalciferol (vitamin D2) 1,250 mcg (50,000 unit) capsule See Rx Instructions .ROUTE .COMPLEX Qty: 12 1RF Dose Instruction: TAKE ONE CAPSULE BY MOUTH EVERY WEEK Rx Instructions: TAKE ONE CAPSULE BY MOUTH EVERY WEEK Discharge Orders: Discharge ED (Routine); Ordered 10/25/22 Ordered By: Colt Amaya Referrals: Leatha Cifuentes FNP [Primary Care Provider] - Discharge Diet: Usual diet Discharge Activity: Increase activity as tolerated Patient Instructions: Opioid Safety, Pain Management Activity Restrictions/Additional Instructions: You were seen for syncopal episode in the emergency room. Your cardiac enzymes and EKG were unremarkable. Continue your previously prescribed medications. Case management will make arrangements for you to follow-up with an outpatient echocardiogram. Recheck with your primary care doctor within the next week. Sign Out Sign Out Data: Patient Sign Out occurred on 10/25/22 at 06:13. Patient's care was discussed, and care was transferred from to Colt Amaya DO. Coding Level of Care Code ED Mems Process Engineer for Chg Fwd Exam Comprehensive Documented by User: Colt Amaya DO 10/25/22 11:51 HPI - Chest Pain General: Chief Complaint: Chest Pain Stated Complaint: Weakness\BP\Chest Pains\Fainted Time Seen by Provider: 10/25/22 05:59 PFSH ED PFSH: Medical History Peripheral edema Vitamin D deficiency Social History Smoking and tobacco status: current every day smoker (6-8 cigarettes/day) cigarettes Packs smoked per day: 0.50 Years cigarettes smoked: 20 Alcohol intake: current Alcohol intake frequency: holidays/special occasions only Alcohol type: beer Lives independently: Yes Marital status: service: No Current occupational status: disabled History of recent travel: No Current gender identity: Male Special judi needs: No Agree to transfusion: Yes Course Vital Signs: Vital signs: Vital Signs Temperature 98.1 F 10/25/22 06:22 Pulse Rate 89 10/25/22 09:36 Respiratory Rate 18 10/25/22 09:36 Blood Pressure 139/60 10/25/22 09:36 Pulse Oximetry 92 10/25/22 09:36 Oxygen Delivery Me thod 10/25/22 07:05 MDM - Chest Pain Medical Decision Making Care assumed at change of shift. Patient is feeling somewhat better. Cardiac enzymes are negative D-dimer is negative. Will discharge home. Case management to set up outpatient echocardiogram. Medical Records I reviewed the patient's medical records. Lab Data I reviewed the patient's lab results. 10/25/22 06:00 10/25/22 06:00 Radiology Impressions Chest X-Ray 10/25/22 06:01 IMPRESSION: No acute findings. Laboratory Results WBC 8.9 10^3/uL (4.0-10.0) 10/25/22 06:00 RBC 5.41 10^6/uL (4.1-5.3) H 10/25/22 06:00 Hgb 16.9 g/dL (11.7-16.6) H 10/25/22 06:00 Hct 50.0 % (42.0-52.0) 10/25/22 06:00 MCV 92.4 fl (80-94) 10/25/22 06:00 MCH 31.2 pg (28.0-34.0) 10/25/22 06:00 MCHC 33.8 g/dL (30.0-36.0) 10/25/22 06:00 RDW 14.9 % (12.1-15.1) 10/25/22 06:00 Plt Count 304 10^3/cmm (130-400) 10/25/22 06:00 MPV 9.8 fL (7.4-10.4) 10/25/22 06:00 Neut % (Auto) 51.9 % 10/25/22 06:00 Lymph % (Auto) 30.6 % 10/25/22 06:00 [place] % (Auto) 11.6 % 10/25/22 06:00 Eos % (Auto) 3.5 % 10/25/22 06:00 Baso % (Auto) 0.7 % 10/25/22 06:00 Neut # (Auto) 4.64 10^3/uL (1.8-7.7) 10/25/22 06:00 Lymph # (Auto) 2.7 10^3/uL (0.8-4.8) 10/25/22 06:00 [place] # (Auto) 1.0 10^3/uL (0.2-0.9) H 10/25/22 06:00 Eos # (Auto) 0.3 10^3/uL (0.0-0.8) 10/25/22 06:00 Baso # (Auto) 0.1 10^3/uL (0.0-0.1) 10/25/22 06:00 Nucleated RBC % (auto) 0 % 10/25/22 06:00 Nucleated RBCs # 0.0 /100WBC 10/25/22 06:00 D-Dimer <= 0.27 ug/mIFEU (0-0.59) 10/25/22 06:00 Sodium 131 mmol/L (136-145) L 10/25/22 06:00 Potassium 4.2 mmol/L (3.5-5.1) 10/25/22 06:00 Chloride 97 mmol/L (98-107) L 10/25/22 06:00 Carbon Dioxide 23 mmol/L (22-29) 10/25/22 06:00 Anion Gap 15.2 (5-19) 10/25/22 06:00 BUN 13 mg/dL (6-20) 10/25/22 06:00 Creatinine 0.9 mg/dL (0.7-1.2) 10/25/22 06:00 GFR Calculation 92.5 mL/min (90-130) 10/25/22 06:00 Glucose 114 mg/dL (65-115) 10/25/22 06:00 Calculated Osmolality 273 mOsm/kg (285-295) L 10/25/22 06:00 Calcium 9.5 mg/dL (8.5-10.5) 10/25/22 06:00 Total Bilirubin 0.4 mg/dL (0.15-1.2) 10/25/22 06:00 AST 31 U/L (0-40) 10/25/22 06:00 ALT 44 U/L (0-41) H 10/25/22 06:00 Alkaline Phosphatase 65 U/L (40-130) 10/25/22 06:00 Troponin T Baseline 10 ng/L (0-15) 10/25/22 06:00 Troponin T 120 Minute 8.64 ng/L (0-15) 10/25/22 08:08 Delta Troponin T -1.36 ABS# (0-10) L 10/25/22 08:08 NT-Pro-B Natriuret Pep 5 pg/mL (0-125) 10/25/22 06:00 Total Protein 7.6 g/dL (6.6-8.7) 10/25/22 06:00 Albumin 4.5 g/dL (3.5-5.2) 10/25/22 06:00 Globulin 3.1 g/dL (1.3-4.6) 10/25/22 06:00 Influenza Type A Ag Negative (Negative) 10/25/22 06:18 Influenza Type B Ag Negative (Negative) 10/25/22 06:18 Discharge Plan Discharge Patient Disposition: Home Clinical Impression: Syncope, Hypertension, Morbid obesity Condition: Stable Prescriptions: No Action pantoprazole 40 mg tablet,delayed release (DR/EC) See Rx Instructions .ROUTE .COMPLEX Qty: 30 5RF Dose Instruction: TAKE ONE TABLET BY MOUTH DAILY. Rx Instructions: TAKE ONE TABLET BY MOUTH DAILY. lisinopril 20 mg tablet See Rx Instructions .ROUTE .COMPLEX Qty: 60 5RF Dose Instruction: TAKE ONE TABLET BY MOUTH TWICE DAILY. Rx Instructions: TAKE ONE TABLET BY MOUTH TWICE DAILY. triamterene-hydrochlorothiazid 37.5-25 mg tablet See Rx Instructions .ROUTE .COMPLEX Qty: 30 2RF Dose Instruction: TAKE ONE TABLET BY MOUTH EVERY MORNING NEEDED FOR swelling in LEGS Rx Instructions: TAKE ONE TABLET BY MOUTH EVERY MORNING NEEDED FOR swelling in LEGS ergocalciferol (vitamin D2) 1,250 mcg (50,000 unit) capsule See Rx Instructions .ROUTE .COMPLEX Qty: 12 1RF Dose Instruction: TAKE ONE CAPSULE BY MOUTH EVERY WEEK Rx Instructions: TAKE ONE CAPSULE BY MOUTH EVERY WEEK Discharge Orders: Discharge ED (Routine); Ordered 10/25/22 Ordered By: Colt Amaya Referrals: Leatha Cifuentes FNP [Primary Care Provider] - Discharge Diet: Usual diet Discharge Activity: Increase activity as tolerated Patient Instructions: Opioid Safety, Pain Management Activity Restrictions/Additional Instructions: You were seen for syncopal episode in the emergency room. Your cardiac enzymes and EKG were unremarkable. Continue your previously prescribed medications. Case management will make arrangements for you to follow-up with an outpatient echocardiogram. Recheck with your primary care doctor within the next week. Sign Out Sign Out Data: Patient Sign Out occurred on 10/25/22 at 06:13. Patient's care was discussed, and care was transferred from to Colt Amaya DO. Coding Level of Care Code ED Mems Process Engineer for Chg Fwd Exam Comprehensive
[2022-10-25 06:15] LABS: Basophils # 0.1 10^3/uL (0.0-0.1); Basophils % 0.7 %; Eosinophils # 0.3 10^3/uL (0.0-0.8); Eosinophils % 3.5 %; Hemoglobin 16.9 g/dL (11.7-16.6); Lymphocytes # 2.7 10^3/uL (0.8-4.8); Lymphocytes % 30.6 %; Mean Corpuscular HGB Conc 33.8 g/dL (30.0-36.0); Mean Corpuscular Hemoglobin 31.2 pg (28.0-34.0); Mean Corpuscular Volume 92.4 fl (80-94); Mean Platelet Volume 9.8 fL (7.4-10.4); Monocytes % 11.6 %; Neutrophils # 4.64 10^3/uL (1.8-7.7); Neutrophils % 51.9 %; Nucleated Red Blood Cells % 0 %; Platelet Count 304 10^3/cmm (130-400); Red Blood Count 5.41 10^6/uL (4.1-5.3); Red Cell Distribution Width 14.9 % (12.1-15.1); White Blood Count 8.9 10^3/uL (4.0-10.0)
[2022-10-25] MEDS: aspirin 81 mg Chew Tablet 324 MG PO (06:16)
[2022-10-25 06:22] VITALS: BP 144/47; PULSE 75; RESP 18; TEMP 36.7; O2SAT 97
[2022-10-25 06:30] VITALS: BP 139/60; PULSE 68; RESP 18; O2SAT 96
[2022-10-25 06:38] LABS: D Dimer <= 0.27 ug/mIFEU (0-0.59)
[2022-10-25 06:42] LABS: Troponin(5th) Baseline 10 ng/L (0-15)
[2022-10-25 06:49] LABS: Alanine Aminotransferase 44 U/L (0-41); Albumin Level 4.5 g/dL (3.5-5.2); Alkaline Phosphatase 65 U/L (40-130); Anion Gap 15.2 (5-19); Aspartate Amino Transferase 31 U/L (0-40); Blood Urea Nitrogen 13 mg/dL (6-20); Calcium 9.5 mg/dL (8.5-10.5); Carbon Dioxide 23 mmol/L (22-29); Chloride 97 mmol/L (98-107); Globulin 3.1 g/dL (1.3-4.6); Glomerular Filtration Rate 92.5 mL/min (90-130); Glucose 114 mg/dL (65-115); NT Pro B Type Natriuretic Pept 5 pg/mL (0-125); Osmolality Calculated 273 mOsm/kg (285-295); Potassium 4.2 mmol/L (3.5-5.1); Sodium 131 mmol/L (136-145); Total Bilirubin 0.4 mg/dL (0.15-1.2); Total Protein 7.6 g/dL (6.6-8.7)
[2022-10-25 07:00] LABS: Influenza A by IFA Negative (Negative); Influenza B by IFA Negative (Negative)
[2022-10-25 07:05] VITALS: BP 139/60; PULSE 78; RESP 14; O2SAT 96
--- NOTE | 2022-10-25 07:06 | PC.NURSE ---
Patient is resting in bed and watching tv. Patient has equal chest rise and in NAD. No needs at this time.
--- NOTE | 2022-10-25 08:02 | ECG_ITS ---
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 Measurements Intervals [place] Rate: 66 P: 43 [place]: 167 QRS: 26 QRSD: 94 T: 48 QT: 369 QTc: 387 Interpretive Statements SINUS RHYTHM POSSIBLE RIGHT VENTRICULAR CONDUCTION DELAY [RSR (QR) IN V1/V2] Compared to ECG 10/25/2022 05:49:29 No significant changes Electronically Signed On 10-25-2022 11:07:02 MINERALOGY TEACHER by Mich Patel M.D. [id number]
[2022-10-25 08:54] LABS: Troponin 5 2HR 8.64 ng/L (0-15)
[2022-10-25 09:27] LABS: Troponin 5 2HR Delta -1.36 ABS# (0-10)
[2022-10-25 09:36] VITALS: BP 139/60; PULSE 89; RESP 18; O2SAT 92
--- NOTE | 2022-10-29 06:55 | DCPLANNER ---
fish farm manager had message to schedule an outpatient echocardiogram for patient. fish farm manager faxed signed order to centralized scheduling, who will call patient with appointment information. fish farm manager also sent notification to patients primary care physician that this test was ordered by an ER physician.
== END 2022-10-25 10:30 | disposition home or self-care (01) ==
PROVIDERS: Emergency Medicine; Emergency Provider Family Medicine; PCP Nurse Practitioner Family
DX: R55 Syncope and collapse (principal); I10 Essential (primary) hypertension; E66.01 Morbid (severe) obesity due to excess calories; Z68.42 Body mass index [BMI] 45.0-49.9, adult; F17.210 Nicotine dependence, cigarettes, uncomplicated
CPT/HCPCS: 71045; 80053; 83880; 84484; 85025; 85378; 87804; 93005; 99285

== ENCOUNTER 2023-01-03 20:27 | Emergency (ER) | payer MEDICARE, MEDICAID, SELFPAY ==
[2023-01-03 20:36] VITALS: BP 162/92; PULSE 98; RESP 18; TEMP 36.6; O2SAT 97; BMI 48.6
--- NOTE | 2023-01-03 20:47 | XRR_ITS ---
PROCEDURE INFORMATION: Exam: XR Chest Exam date and time: 01/03/2023 8:57 PM Age: 42 years old Clinical indication: Pain; Left-sided; Additional info: Cp TECHNIQUE: Imaging protocol: Radiologic exam of the chest. Views: 1 view. COMPARISON: CR XR chest 1V portable [id number] 10/25/2022 7:13 AM FINDINGS: Tubes, catheters and devices: EKG monitoring lead pads overlie the thoracic wall. Lungs: There is no evidence of focal pulmonary consolidation. Pleural spaces: No pleural effusion or pneumothorax. Heart/Mediastinum: The heart and mediastinum are normal in size. Bones/joints: Unremarkable. XR/XR chest 1V portable [id number] IMPRESSION: No acute findings.
--- NOTE | 2023-01-03 20:47 | ECG_ITS ---
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 Measurements Intervals [place] Rate: 74 P: 64 [place]: 167 QRS: 44 QRSD: 92 T: 56 QT: 371 QTc: 412 Interpretive Statements SINUS RHYTHM POSSIBLE RIGHT VENTRICULAR CONDUCTION DELAY [RSR (QR) IN V1/V2] INTERPRETATION BASED ON A DEFAULT AGE OF 40 YEARS Compared to ECG 10/25/2022 07:47:06 No significant changes Electronically Signed On 01-04-2023 8:49:18 TRAFFIC OR SYSTEM DISPATCHER by Ramona Ceja M.D. [id number]
[2023-01-03 20:58] LABS: Basophils # 0.1 10^3/uL (0.0-0.1); Basophils % 0.7 %; Eosinophils # 0.2 10^3/uL (0.0-0.8); Hematocrit 49.6 % (42.0-52.0); Hemoglobin 16.6 g/dL (11.7-16.6); Lymphocytes # 3.9 10^3/uL (0.8-4.8); Lymphocytes % 32.5 %; Mean Corpuscular HGB Conc 33.5 g/dL (30.0-36.0); Mean Corpuscular Hemoglobin 31.6 pg (28.0-34.0); Mean Corpuscular Volume 94.3 fl (80-94); Mean Platelet Volume 9.7 fL (7.4-10.4); Monocytes # 1.1 10^3/uL (0.2-0.9); Monocytes % 9.6 %; Neutrophils # 6.37 10^3/uL (1.8-7.7); Neutrophils % 53.4 %; Nucleated Red Blood Cells % 0 %; Platelet Count 330 10^3/cmm (130-400); Red Blood Count 5.26 10^6/uL (4.1-5.3); Red Cell Distribution Width 13.3 % (12.1-15.1); White Blood Count 11.9 10^3/uL (4.0-10.0)
[2023-01-03] MEDS: lidocaine 2% viscous 15 ML, aluminum-mag hydrox-simethicon 30 ML, sucralfate oral liq 1 GM PO (21:03)
[2023-01-03] MEDS: morphine 4 mg/mL SDV 1 mL IVP (21:07)
[2023-01-03] MEDS: ondansetron 2 mg/ML SDV 2 mL 4 MG IVP (21:07)
[2023-01-03 21:08] LABS: D Dimer <= 0.27 ug/mIFEU (0-0.59)
[2023-01-03 21:12] VITALS: BP 166/76; PULSE 78; RESP 18; O2SAT 94
[2023-01-03 21:31] LABS: Alanine Aminotransferase 45 U/L (0-41); Albumin Level 4.6 g/dL (3.5-5.2); Alkaline Phosphatase 64 U/L (40-130); Anion Gap 18.3 (5-19); Aspartate Amino Transferase 43 U/L (0-40); Blood Urea Nitrogen 14 mg/dL (6-20); Calcium 10.3 mg/dL (8.5-10.5); Carbon Dioxide 22 mmol/L (22-29); Chloride 99 mmol/L (98-107); Globulin 2.6 g/dL (1.3-4.6); Glucose 104 mg/dL (65-115); Lipase 19 U/L (13-60); NT Pro B Type Natriuretic Pept 36 pg/mL (0-125); Osmolality Calculated 281 mOsm/kg (285-295); Potassium 4.3 mmol/L (3.5-5.1); Sodium 135 mmol/L (136-145); Total Bilirubin 0.3 mg/dL (0.15-1.2); Total Protein 7.2 g/dL (6.6-8.7)
--- NOTE | 2023-01-03 21:34 | W.ED.CHESTPA ---
HPI - Chest Pain General: Chief Complaint: Chest Pain Stated Complaint: CHEST PRESSURE/DIZZY Time Seen by Provider: 01/03/23 20:37 Source: patient History of Present Illness: 42-year-old male who says he has chest pressure like someone is sitting on his chest. He has had it for 3 days he says. Pretty constant discomfort. Some shortness of breath. He says that he is dizzy as well. No prior history of heart disease. He does have a history of hypertension and GERD. No cough, no vomiting or diarrhea. He says that he had some right calf tenderness prior to development of his chest pain 3 days ago. MD complaint: chest pain and chest heaviness Pertinent past history: other Onset (ago): day(s) (3) Prior episodes: Yes Onset: during rest Pain location: substernal Pain radiation: none Quality: aching and heaviness Relieving factors: nothing Exacerbating factors: nothing Associated symptoms: Reports dyspnea and leg edema (Chronic); Deny abdominal pain, diaphoresis, fever(s), nausea, palpitations, syncope or vomiting Review of Systems Const: Denies: fever(s) or diaphoresis ENMT: Denies: throat pain Card: Reports: chest pain; Denies: palpitations or syncope Resp: Reports: dyspnea GI: Denies: abdominal pain, nausea or vomiting Skin/Breast: Denies: rash or erythema PFSH ED PFSH: Medical History Peripheral edema Vitamin D deficiency Social History Smoking and tobacco status: current every day smoker (6-8 cigarettes/day) cigarettes Packs smoked per day: 0.50 Years cigarettes smoked: 20 Alcohol intake: current Alcohol intake frequency: holidays/special occasions only Alcohol type: beer Lives independently: Yes Marital status: service: No Current occupational status: disabled History of recent travel: No Current gender identity: Male Special judi needs: No Agree to transfusion: Yes Physical Exam Const: COMMON NORMALS: no acute distress GENERAL APPEARANCE: cooperative; not ill appearing and not frail appearing NUTRITIONAL APPEARANCE: obese HENMT: COMMON NORMALS: normocephalic, atraumatic and Normal external nose present HEAD & SCALP: normocephalic and atraumatic FACE & SINUS: normal facial exam and face symmetric NOSE: Normal external nose present Eye: COMMON NORMALS: Equal, round and reactive pupils present and EOMs intact bilaterally PUPIL: Yes Equal, round and reactive pupils present Neck/C-Spine: GENERAL: Yes trachea midline Chest: CHEST: Yes Symmetrical chest wall rise Resp: COMMON NORMALS: normal respiratory effort, No retractions, No use of accessory muscles and clear to auscultation bilaterally AUSCULTATION: clear to auscultation bilaterally Cardio: COMMON NORMALS: regular rate and regular rhythm RATE: regular rate RHYTHM: regular rhythm GI: COMMON NORMALS: Normal to inspection, nondistended, normoactive bowel sounds present Extremity: COMMON NORMALS: no pedal edema Neuro: TIO COMA SCALE: document GCS findings Tio coma scale eye opening: Spontaneous [place] coma scale verbal response: Orientated [place] coma scale motor response: Obey commands Tio coma scale total score: 15 SENSORY EXAM: Yes extremities (intact) Psych: COMMON NORMALS: speech normal SPEECH: Yes normal speech Skin: COMMON NORMALS: no rashes or lesions noted GENERAL SKIN EXAM: no rashes or lesions noted Course Vital Signs: Vital signs: Vital Signs Temperature 98 F 01/03/23 20:36 Pulse Rate 74 01/03/23 22:30 Respiratory Rate 18 01/03/23 21:12 Blood Pressure 160/68 01/03/23 22:30 Pulse Oximetry 95 01/03/23 22:30 Oxygen Delivery Me thod 01/03/23 22:30 MDM - Chest Pain Medical Decision Making EKG shows a sinus rhythm with normal axis. He has an RSR prime in V2. Otherwise intervals are normal. No STElevation or significant depression. Rate is 75. Chest x-ray is normal. White blood cell count is 12. CBC otherwise unremarkable. D-dimer is nondetectable. Troponin is 8. With 3 days of pain, 1 would expect a higher troponin even at time 0 in the ER if this was cardiac discomfort he takes Protonix. We will add Carafate. Outpatient follow-up. He may need a stress test. Lab Data 01/03/23 20:43 01/03/23 20:43 Radiology Impressions Chest X-Ray 01/03/23 20:47 IMPRESSION: No acute findings. Laboratory Results WBC 11.9 10^3/uL (4.0-10.0) H 01/03/23 20:43 RBC 5.26 10^6/uL (4.1-5.3) 01/03/23 20:43 Hgb 16.6 g/dL (11.7-16.6) 01/03/23 20:43 Hct 49.6 % (42.0-52.0) 01/03/23 20:43 MCV 94.3 fl (80-94) H 01/03/23 20:43 MCH 31.6 pg (28.0-34.0) 01/03/23 20:43 MCHC 33.5 g/dL (30.0-36.0) 01/03/23 20:43 RDW 13.3 % (12.1-15.1) 01/03/23 20:43 Plt Count 330 10^3/cmm (130-400) 01/03/23 20:43 MPV 9.7 fL (7.4-10.4) 01/03/23 20:43 Neut % (Auto) 53.4 % 01/03/23 20:43 Lymph % (Auto) 32.5 % 01/03/23 20:43 [place] % (Auto) 9.6 % 01/03/23 20:43 Eos % (Auto) 2.0 % 01/03/23 20:43 Baso % (Auto) 0.7 % 01/03/23 20: Neut # (Auto) 6.37 10^3/uL (1.8-7.7) 01/03/23 20:43 Lymph # (Auto) 3.9 10^3/uL (0.8-4.8) 01/03/23 20:43 [place] # (Auto) 1.1 10^3/uL (0.2-0.9) H 01/03/23 20:43 Eos # (Auto) 0.2 10^3/uL (0.0-0.8) 01/03/23 20:43 Baso # (Auto) 0.1 10^3/uL (0.0-0.1) 01/03/23 20:43 Nucleated RBC % (auto) 0 % 01/03/23 20: Nucleated RBCs # 0.0 /100WBC 01/03/23 20:43 D-Dimer <= 0.27 ug/mIFEU (0-0.59) 01/03/23 20:43 Sodium 135 mmol/L (136-145) L 01/03/23 20:43 Potassium 4.3 mmol/L (3.5-5.1) 01/03/23 20:43 Chloride 99 mmol/L (98-107) 01/03/23 20:43 Carbon Dioxide 22 mmol/L (22-29) 01/03/23 20:43 Anion Gap 18.3 (5-19) 01/03/23 20:43 BUN 14 mg/dL (6-20) 01/03/23 20:43 Creatinine 0.8 mg/dL (0.7-1.2) 01/03/23 20:43 GFR Calculation 106.0 mL/min (90-130) 01/03/23 20:43 Glucose 104 mg/dL (65-115) 01/03/23 20:43 Calculated Osmolality 281 mOsm/kg (285-295) L 01/03/23 20:43 Calcium 10.3 mg/dL (8.5-10.5) 01/03/23 20:43 Total Bilirubin 0.3 mg/dL (0.15-1.2) 01/03/23 20:43 AST 43 U/L (0-40) H 01/03/23 20:43 ALT 45 U/L (0-41) H 01/03/23 20:43 Alkaline Phosphatase 64 U/L (40-130) 01/03/23 20:43 Troponin T Baseline 8 ng/L (0-15) 01/03/23 20:43 NT-Pro-B Natriuret Pep 36 pg/mL (0-125) 01/03/23 20:43 Total Protein 7.2 g/dL (6.6-8.7) 01/03/23 20:43 Albumin 4.6 g/dL (3.5-5.2) 01/03/23 20:43 Globulin 2.6 g/dL (1.3-4.6) 01/03/23 20:43 Lipase 19 U/L (13-60) 01/03/23 20:43 Discharge Plan Discharge Patient Disposition: Home Clinical Impression: Chest pain Condition: Stable Prescriptions: New Carafate 1 gram tablet 1 g PO Q6H 28 Days Qty: 112 0RF No Action pantoprazole 40 mg tablet,delayed release (DR/EC) See Rx Instructions .ROUTE .COMPLEX Qty: 30 5RF Dose Instruction: TAKE ONE TABLET BY MOUTH DAILY. Rx Instructions: TAKE ONE TABLET BY MOUTH DAILY. lisinopril 20 mg tablet See Rx Instructions .ROUTE .COMPLEX Qty: 60 5RF Dose Instruction: TAKE ONE TABLET BY MOUTH TWICE DAILY. Rx Instructions: TAKE ONE TABLET BY MOUTH TWICE DAILY. triamterene-hydrochlorothiazid 37.5-25 mg tablet See Rx Instructions .ROUTE .COMPLEX Qty: 30 2RF Dose Instruction: TAKE ONE TABLET BY MOUTH EVERY MORNING NEEDED FOR swelling in LEGS Rx Instructions: TAKE ONE TABLET BY MOUTH EVERY MORNING NEEDED FOR swelling in LEGS ergocalciferol (vitamin D2) 1,250 mcg (50,000 unit) capsule See Rx Instructions .ROUTE .COMPLEX Qty: 12 1RF Dose Instruction: TAKE ONE CAPSULE BY MOUTH EVERY WEEK Rx Instructions: TAKE ONE CAPSULE BY MOUTH EVERY WEEK Discharge Orders: Discharge ED (Routine); Ordered 01/03/23 Ordered By: Ezekiel Anne Referrals: Leatha Cifuentes FNP [Primary Care Provider] - 1-3 days Patient Instructions: Chest Pain (ED) Activity Restrictions/Additional Instructions: No cause was found for your chest pain this evening. By testing, does not appear to be your heart or your lungs. You were screened for blood clot to the lung, heart attack, etc. overall negative. Your chest x-ray was negative. There are many causes of chest discomfort. Sometimes it can be esophageal reflux. We will add a medication to your pantoprazole to see if this helps. See your doctor next week. Further outpatient testing may be needed. Return for worsening symptoms. Coding Level of Care Code ED Programs Assistant for Janeth Fwgeovanna Exam Comprehensive
[2023-01-03 21:49] LABS: Troponin(5th) Baseline 8 ng/L (0-15)
[2023-01-03 22:30] VITALS: BP 160/68; PULSE 74; O2SAT 95
== END 2023-01-03 23:21 | disposition home or self-care (01) ==
PROVIDERS: Emergency Provider Emergency Medicine; PCP Nurse Practitioner Family
DX: R07.9 Chest pain, unspecified (principal); F17.210 Nicotine dependence, cigarettes, uncomplicated
CPT/HCPCS: 71045; 80053; 83690; 83880; 84484; 85025; 85378; 93005; 96374; 96375; 99285; J2270; J2405

== ENCOUNTER 2023-03-10 14:43 | Emergency (ER) | payer MEDICARE, MEDICAID, SELFPAY ==
[2023-03-10 14:50] VITALS: BP 176/82; PULSE 65; RESP 16; TEMP 36.8; O2SAT 95
--- NOTE | 2023-03-10 14:56 | ED_ITS ---
HPI - Abdominal Pain General: Chief Complaint: Abdominal Pain Stated Complaint: ABDOMINAL PAIN Time Seen by Provider: 03/10/23 14:49 Source: patient Mode of arrival: ambulatory History of Present Illness: 43-year-old male presents emergency room complaining of abdominal pain. Was brought in by ambulance from at their clinic. He states been having abdominal pain Mill[place] last couple of months markedly worse last couple of days last bowel movement was 24 hours ago. He is not noticed any blood but he states he does not really look particularly. He has been very nauseous with that no vomiting. He has previously had cholecyst ectomy and appendectomy he is also had a large supraumbilical hernia repair. That is the area of the focus of his pain at this time. Tried various [id number] medications for upset stomach with no relief. No dysuria urgency or frequency no fever. MD elicited complaint: abdominal pain Onset (ago): month(s) Pain Consistency: constant Location: Periumbilical Severity: severe Quality: cramping Exacerbating factors: nothing Relieving factors: nothing Associated Symptoms: Reports change in bowel habits; Denies anorexia, belching, bloating, change in stool character, chills, coffee ground emesis, constipation, GI cramping, diarrhea, dyspepsia, dysuria, excessive flatus, fever(s), heartburn, hematochezia, hematuria, hematemesis, fecal incontinence, loose stools, melena, nausea, poor appetite, syncope and vomiting Review of Systems Const: Denies: fever(s), chills, fatigue or malaise ENMT: Denies: throat pain, ear or mastoid pain, nasal discharge or nasal congestion Card: Denies: chest pain, palpitations, irregular heart rhythm, edema or syncope Resp: Denies: dyspnea, productive cough or non-productive cough GI: Reports: abdominal pain and change in bowel habits; Denies: nausea, vomiting, hematemesis, coffee ground emesis, heartburn, diarrhea, constipation, bloating, GI cramping, belching, excessive flatus, fecal incontinence, change in stool character, hematochezia or melena : Denies: dysuria, urinary frequency, urinary urgency or hematuria Skin/Breast: Denies: rash or pruritus PFS ED PFSH: Medical History Peripheral edema Vitamin D deficiency Social History Smoking and tobacco status: current every day smoker (6-8 cigarettes/day) cigarettes Packs smoked per day: 0.50 Years cigarettes smoked: 20 Alcohol intake: current Alcohol intake frequency: holidays/special occasions only Alcohol type: beer Lives independently: Yes Marital status: service: No Current occupational status: disabled Current gender identity: Male Special judi needs: No Agree to transfusion: Yes Physical Exam Const: GENERAL APPEARANCE: cooperative and comfortable ORIENTATION /CONSCIOUSNESS: Yes awake, Yes oriented to person, Yes oriented to place and Yes oriented to time HENMT: COMMON NORMALS: normocephalic, atraumatic and hearing grossly normal bilaterally HEAD & SCALP: normocephalic and atraumatic Resp: COMMON NORMALS: normal respiratory effort, No retractions, No use of accessory muscles and clear to auscultation bilaterally AUSCULTATION: clear to auscultation bilaterally Cardio: COMMON NORMALS: regular rate, regular rhythm and No murmurs present (Cardio) RATE: regular rate RHYTHM: regular rhythm GI: COMMON NORMALS: No hepatosplenomegaly present AUSCULTATION: Yes Hypoactive bowel sounds present PALPATION: Yes Tenderness to palpation present (GI) (Firm thickened area supraumbilical no erythema no drainage no open wounds), No Guarding due to palpation present (GI) and Yes No hepatosplenomegaly present Extremity: COMMON NORMALS: normal to inspection, capillary refill normal, no clubbing, cyanosis or edema, no calf tenderness and no pedal edema Neuro: SENSORIUM/ORIENTATION: Yes oriented to person, Yes oriented to place and Yes oriented to time Skin: COMMON NORMALS: no rashes or lesions noted GENERAL SKIN EXAM: no rashes or lesions noted Course Vital Signs: Vital signs: Vital Signs Temperature 98.3 F 03/10/23 14:50 Pulse Rate 59 L 03/10/23 16:43 Respiratory Rate 15 03/10/23 16:39 Blood Pressure 160/97 03/10/23 16:43 Pulse Oximetry 97 03/10/23 16:43 Oxygen Delivery Me thod 03/10/23 16:43 MDM - Abdominal Pain Medical Decision Making CT shows incarcerated midline abdominal hernia there is fluid around some omental fat tissue but there is no bowel entrapped. After morphine is given was able to partially reduce it. We will discharge patient home with nausea and pain medications and make arrangements for follow-up with Dr. Worrell discussed with Dr. Worrell he agrees can be managed as an outpatient at this point. Medical Records I reviewed the patient's medical records. Lab Data I reviewed the patient's lab results. 03/10/23 15:37 03/10/23 15:37 Labs/Radiology: Radiology Impressions Abdomen/Pelvis CT 03/10/23 15:26 IMPRESSION: Redemonstrated midline fat containing ventral hernia. The hernia has a narrow neck with peripheral fluid within the hernia sac, new from most recent comparison, and may suggest an incarcerated hernia. Laboratory Results WBC 8.4 10^3/uL (4.0-10.0) 03/10/23 15:37 RBC 5.14 10^6/uL (4.1-5.3) 03/10/23 15:37 Hgb 16.3 g/dL (11.7-16.6) 03/10/23 15:37 Hct 49.0 % (42.0-52.0) 03/10/23 15:37 MCV 95.3 fl (80-94) H 03/10/23 15:37 MCH 31.7 pg (28.0-34.0) 03/10/23 15:37 MCHC 33.3 g/dL (30.0-36.0) 03/10/23 15:37 RDW 13.2 % (12.1-15.1) 03/10/23 15:37 Plt Count 314 10^3/cmm (130-400) 03/10/23 15:37 MPV 9.6 fL (7.4-10.4) 03/10/23 15:37 Neut % (Auto) 56.1 % 03/10/23 15:37 Lymph % (Auto) 31.2 % 03/10/23 15:37 [place] % (Auto) 8.6 % 03/10/23 15:37 Eos % (Auto) 1.6 % 03/10/23 15:37 Baso % (Auto) 0.8 % 03/10/23 15:37 Neut # (Auto) 4.70 10^3/uL (1.8-7.7) 03/10/23 15:37 Lymph # (Auto) 2.6 10^3/uL (0.8-4.8) 03/10/23 15:37 [place] # (Auto) 0.7 10^3/uL (0.2-0.9) 03/10/23 15:37 Eos # (Auto) 0.1 10^3/uL (0.0-0.8) 03/10/23 15:37 Baso # (Auto) 0.1 10^3/uL (0.0-0.1) 03/10/23 15:37 Nucleated RBC % (auto) 0 % 03/10/23 15:37 Nucleated RBCs # 0.0 /100WBC 03/10/23 15:37 Sodium 138 mmol/L (136-145) 03/10/23 15:37 Potassium 4.1 mmol/L (3.5-5.1) 03/10/23 15:37 Chloride 102 mmol/L (98-107) 03/10/23 15:37 Carbon Dioxide 23 mmol/L (22-29) 03/10/23 15:37 Anion Gap 17.1 (5-19) 03/10/23 15:37 BUN 11 mg/dL (6-20) 03/10/23 15:37 Creatinine 0.9 mg/dL (0.7-1.2) 03/10/23 15:37 GFR Calculation 92.1 mL/min (90-130) 03/10/23 15:37 Glucose 108 mg/dL (65-115) 03/10/23 15:37 Calculated Osmolality 286 mOsm/kg (285-295) 03/10/23 15:37 Lactic Acid 0.9 mmol/L (0.5-2.2) 03/10/23 15:37 Calcium 9.1 mg/dL (8.5-10.5) 03/10/23 15:37 Total Bilirubin 0.6 mg/dL (0.15-1.2) 03/10/23 15:37 AST 38 U/L (0-40) 03/10/23 15:37 ALT 57 U/L (0-41) H 03/10/23 15:37 Alkaline Phosphatase 50 U/L (40-130) 03/10/23 15:37 Total Protein 7.5 g/dL (6.6-8.7) 03/10/23 15:37 Albumin 4.2 g/dL (3.5-5.2) 03/10/23 15:37 Globulin 3.3 g/dL (1.3-4.6) 03/10/23 15:37 Discharge Plan Discharge Patient Disposition: Home Clinical Impression: Abdominal wall hernia Condition: Stable Prescriptions: New hydrocodone-acetaminophen 5-325 mg tablet 1 tab PO Q6H PRN (Reason: pain) Qty: 15 0RF ondansetron HCl 4 mg tablet 4 mg PO Q6H PRN (Reason: nausea and vomiting) Qty: 20 0RF No Action triamterene-hydrochlorothiazid 37.5-25 mg tablet See Rx Instructions .ROUTE .COMPLEX Qty: 30 2RF Dose Instruction: TAKE ONE TABLET BY MOUTH EVERY MORNING NEEDED FOR swelling in LEGS Rx Instructions: TAKE ONE TABLET BY MOUTH EVERY MORNING NEEDED FOR swelling in LEGS ibuprofen 200 mg Capsule 600 mg PO Q6H PRN (Reason: Pain) lisinopril 20 mg tablet 20 mg PO DAILY pantoprazole 40 mg tablet,delayed release (DR/EC) 40 mg PO DAILY ergocalciferol (vitamin D2) 1,250 mcg (50,000 unit) capsule 1,250 mcg PO Q7D Rx Instructions: ON FRIDAYS Discharge Orders: Discharge ED (Routine); Ordered 03/10/23 Ordered By: Colt Amaya Referrals: Leatha Cifuentes FNP [Primary Care Provider] - Discharge Diet: Usual diet Discharge Activity: Limit activity as instructed Patient Instructions: Opioid Safety, Pain Management Activity Restrictions/Additional Instructions: You are seen today for an abdominal wall umbilical hernia. The hernia is incarcerated but did not contain any bowel. Did discuss your case with the surgeon he recommends follow-up in his office. flight kitchen manager will make arrangements for follow-up. Coding Level of Care Code ED Traffic Maintenance Officer for Janeth Sanchez
--- NOTE | 2023-03-10 15:26 | CTR_ITS ---
PROCEDURE INFORMATION: Exam: CT Abdomen And Pelvis Without Contrast Exam date and time: 03/10/2023 3:52 PM Age: 43 years old Clinical indication: Abdominal pain; Epigastric; Prior surgery; Surgery type: Appy, gb, hernia TECHNIQUE: Imaging protocol: Computed tomography of the abdomen and pelvis without contrast. Radiation optimization: All CT scans at this facility use at least one of these dose optimization techniques: automated exposure control; mA and/or kV adjustment per patient size (includes targeted exams where dose is matched to clinical indication); or iterative reconstruction. REPORTING DATA: Count of CT and Cardiac NM exams in prior 12 months: This patient has received 0 known CTs and 0 known cardiac nuclear medicine studies in the 12 months prior to the current study. COMPARISON: CT abdomen pelvis w con* [id number] 10/11/2017 6:34 PM RADIATION DOSE METRICS: Total DLP (mGy-cm): 1711.57 FINDINGS: Liver: Hepatic steatosis. No mass. Gallbladder and bile ducts: Cholecystectomy. No ductal dilation. Pancreas: Normal. No ductal dilation. Spleen: Normal. No splenomegaly. Adrenal glands: Normal. No mass. Kidneys and ureters: Normal. No hydronephrosis. Stomach and bowel: No obstruction. No mucosal thickening. Appendix: Appendectomy. Intraperitoneal space: Unremarkable. No free air. No significant fluid collection. Vasculature: Unremarkable. No abdominal aortic aneurysm. Lymph nodes: Unremarkable. No enlarged lymph nodes. Urinary bladder: Unremarkable as visualized. Reproductive: Unremarkable as visualized. Bones/joints: No acute fracture. Soft tissues: Midline ventral hernia noted containing mesenteric fat. The hernia sac measures 11.6 x 5.2 cm. There is a narrow hernia neck measures 1.5 cm. Fluid noted along the periphery of the hernia sac which is new from prior study. No herniated loops of bowel. CT/CT abdomen pelvis wo con [id number] IMPRESSION: Redemonstrated midline fat containing ventral hernia. The hernia has a narrow neck with peripheral fluid within the hernia sac, new from most recent comparison, and may suggest an incarcerated hernia.
[2023-03-10 15:45] LABS: Basophils # 0.1 10^3/uL (0.0-0.1); Basophils % 0.8 %; Eosinophils # 0.1 10^3/uL (0.0-0.8); Eosinophils % 1.6 %; Hemoglobin 16.3 g/dL (11.7-16.6); Lymphocytes # 2.6 10^3/uL (0.8-4.8); Lymphocytes % 31.2 %; Mean Corpuscular HGB Conc 33.3 g/dL (30.0-36.0); Mean Corpuscular Hemoglobin 31.7 pg (28.0-34.0); Mean Corpuscular Volume 95.3 fl (80-94); Mean Platelet Volume 9.6 fL (7.4-10.4); Monocytes # 0.7 10^3/uL (0.2-0.9); Monocytes % 8.6 %; Neutrophils % 56.1 %; Nucleated Red Blood Cells % 0 %; Platelet Count 314 10^3/cmm (130-400); Red Blood Count 5.14 10^6/uL (4.1-5.3); Red Cell Distribution Width 13.2 % (12.1-15.1); White Blood Count 8.4 10^3/uL (4.0-10.0)
[2023-03-10 16:03] LABS: Alanine Aminotransferase 57 U/L (0-41); Albumin Level 4.2 g/dL (3.5-5.2); Alkaline Phosphatase 50 U/L (40-130); Anion Gap 17.1 (5-19); Aspartate Amino Transferase 38 U/L (0-40); Blood Urea Nitrogen 11 mg/dL (6-20); Calcium 9.1 mg/dL (8.5-10.5); Carbon Dioxide 23 mmol/L (22-29); Chloride 102 mmol/L (98-107); Globulin 3.3 g/dL (1.3-4.6); Glomerular Filtration Rate 92.1 mL/min (90-130); Glucose 108 mg/dL (65-115); Lactic Sepsis W/Reflex 0.9 mmol/L (0.5-2.2); Osmolality Calculated 286 mOsm/kg (285-295); Potassium 4.1 mmol/L (3.5-5.1); Sodium 138 mmol/L (136-145); Total Bilirubin 0.6 mg/dL (0.15-1.2); Total Protein 7.5 g/dL (6.6-8.7)
[2023-03-10] MEDS: promethazine 25 mg/mL SDV 1 mL IM (16:36)
[2023-03-10 16:39] VITALS: RESP 15; O2SAT 97
[2023-03-10] MEDS: morphine 4 mg/mL SDV 1 mL IVP (16:39)
[2023-03-10 16:43] VITALS: BP 160/97; PULSE 59; O2SAT 97
[2023-03-10 17:32] VITALS: BP 159/93; PULSE 73; O2SAT 96
== END 2023-03-10 17:36 | disposition home or self-care (01) ==
PROVIDERS: Emergency Provider Family Medicine; PCP Nurse Practitioner Family
DX: K43.9 Ventral hernia without obstruction or gangrene (principal); F17.210 Nicotine dependence, cigarettes, uncomplicated
CPT/HCPCS: 36415; 74176; 80053; 83605; 85025; 96372; 96374; 99285; J2270; J2550

== ENCOUNTER 2023-03-20 06:53 | Emergency (ER) | payer MEDICARE, MEDICAID, SELFPAY ==
[2023-03-20 06:57] VITALS: BP 139/79; PULSE 84; RESP 18; TEMP 36.4; O2SAT 94
--- NOTE | 2023-03-20 07:18 | XRR_ITS ---
PROCEDURE INFORMATION: Exam: XR Chest Exam date and time: 03/20/2023 7:51 AM Age: 43 years old Clinical indication: Cough and dyspnea; Additional info: Dyspnea/cough TECHNIQUE: Imaging protocol: Radiologic exam of the chest. Views: 1 view. COMPARISON: CR XR chest 1V portable [id number] 01/03/2023 8:57 PM FINDINGS: Lungs: Unremarkable. No consolidation. Pleural spaces: Unremarkable. No pleural effusion. No pneumothorax. Heart/Mediastinum: Unremarkable. No cardiomegaly. Bones/joints: Unremarkable. XR/XR chest 1V portable [id number] IMPRESSION: No acute findings.
--- NOTE | 2023-03-20 07:20 | W.ED.ABDPA2 ---
HPI - Abdominal Pain General: Chief Complaint: Abdominal Pain Stated Complaint: ABD PAIN Time Seen by Provider: 03/20/23 06:55 Source: patient Mode of arrival: ambulatory History of Present Illness: 43-year-old male presents to the emergency room with complaint of abdominal pain. He was seen approximately a week ago at that time he had an incarcerated umbilical hernia we are able to partially reduce that he was not obstructed at the time surgery recommended follow-up in the clinic. He has an appointment for March 09 he states the pain is gotten worse he has been nauseous. Denies any hematemesis or coffee-ground emesis. MD elicited complaint: abdominal pain Pertinent past history: none Location: None Severity: moderate Quality: cramping Associated Symptoms: Reports bloating, nausea and poor appetite; Denies anorexia, belching, change in bowel habits, change in stool character, chills, coffee ground emesis, constipation, GI cramping, diarrhea, dyspepsia, dysuria, excessive flatus, fever(s), heartburn, hematochezia, hematuria, hematemesis, fecal incontinence, loose stools, melena, syncope and vomiting Review of Systems Const: Denies: fever(s), chills, fatigue or malaise ENMT: Denies: throat pain, ear or mastoid pain, nasal discharge or nasal congestion Card: Denies: chest pain, palpitations, irregular heart rhythm, edema, swelling of feet/ankles or syncope Resp: Denies: dyspnea, productive cough or non-productive cough GI: Reports: abdominal pain, nausea and bloating; Denies: vomiting, hematemesis, coffee ground emesis, heartburn, diarrhea, constipation, GI cramping, belching, excessive flatus, fecal incontinence, change in bowel habits, change in stool character, hematochezia or melena : Denies: flank pain, dysuria, urinary frequency, urinary urgency or hematuria Musc: Denies: neck pain or back pain Skin/Breast: Denies: rash or pruritus [facility] PFSH: Medical History Peripheral edema Vitamin D deficiency Social History Smoking and tobacco status: current every day smoker (6-8 cigarettes/day) cigarettes Packs smoked per day: 0.50 Years cigarettes smoked: 20 Alcohol intake: current Alcohol intake frequency: holidays/special occasions only Alcohol type: beer Substance/Drug Use: never Lives independently: Yes Marital status: service: No Current occupational status: disabled Current gender identity: Male Special judi needs: No Agree to transfusion: Yes Physical Exam Const: GENERAL APPEARANCE: cooperative ORIENTATION/CONSCIOUSNESS: Yes awake, Yes oriented to person, Yes oriented to place and Yes oriented to time HENMT: COMMON NORMALS: normocephalic, atraumatic and hearing grossly normal bilaterally HEAD & SCALP: normocephalic and atraumatic Resp: COMMON NORMALS: normal respiratory effort, No retractions, No use of accessory muscles and clear to auscultation bilaterally AUSCULTATION: clear to auscultation bilaterally Cardio: COMMON NORMALS: regular rate, regular rhythm and No murmurs present (Cardio) RATE: regular rate RHYTHM: regular rhythm GI: COMMON NORMALS: No hepatosplenomegaly present AUSCULTATION: Yes normoactive bowel sounds PALPATION: Yes Tenderness to palpation present (GI), No Guarding due to palpation present (GI) and Yes No hepatosplenomegaly present OTHER: Tenderness about the supraumbilical hernia. Hernia is exquisitely tender on palpation. Initial attempts to reduce were unsuccessful Extremity: COMMON NORMALS: normal to inspection, capillary refill normal, no clubbing, cyanosis or edema, no calf tenderness and no pedal edema Neuro: SENSORIUM/ORIENTATION: Yes oriented to person, Yes oriented to place and Yes oriented to time Skin: COMMON NORMALS: no rashes or lesions noted GENERAL SKIN EXAM: no rashes or lesions noted Course Vital Signs: Vital signs: Vital Signs Temperature 97.5 F L 03/20/23 06:57 Pulse Rate 77 03/20/23 09:28 Respiratory Rate 18 03/20/23 06:57 Blood Pressure 123/62 03/20/23 09:28 Pulse Oximetry 95 03/20/23 09:28 Oxygen Delivery Me thod Room Air 03/20/23 07:31 MDM - Abdominal Pain Medical Decision Making Patient has persistent supraumbilical incarcerated hernia with omentum in the hernia sac there is no evidence of bowel. Exquisitely tender on palpation. Discussed with Dr. Worrell will recommend discharge home and follow-up in outpatients. We did talk to case management and able to move his appointment up for his outpatient. Pain medications given advise avoiding heavy lifting or large meals. Return if has further problems Medical Records I reviewed the patient's medical records. Lab Data I reviewed the patient's lab results. 03/20/23 08:13 03/20/23 08:13 Labs/Radiology: Radiology Impressions Chest X-Ray 03/20/23 07:18 IMPRESSION: No acute findings. Abdomen/Pelvis CT 03/20/23 07:31 IMPRESSION: 1. Ventral abdominal wall hernia containing omental fat and fluid. Similar to 03/10/2023. No incarcerated loop of GI tract within the hernia sac. Increased fluid within the hernia sac may be secondary to omental infarction. 2. Prior cholecystectomy and appendectomy. 3. Hepatic steatosis. 4. Small hiatal hernia. Laboratory Results WBC 8.4 10^3/uL (4.0-10.0) 03/20/23 08:13 RBC 5.03 10^6/uL (4.1-5.3) 03/20/23 08:13 Hgb 16.1 g/dL (11.7-16.6) 03/20/23 08:13 Hct 47.9 % (42.0-52.0) 03/20/23 08:13 MCV 95.2 fl (80-94) H 03/20/23 08:13 MCH 32.0 pg (28.0-34.0) 03/20/23 08:13 MCHC 33.6 g/dL (30.0-36.0) 03/20/23 08:13 RDW 13.5 % (12.1-15.1) 03/20/23 08:13 Plt Count 307 10^3/cmm (130-400) 03/20/23 08:13 MPV 9.8 fL (7.4-10.4) 03/20/23 08:13 Neut % (Auto) 48.5 % 03/20/23 08:13 Lymph % (Auto) 34.4 % 03/20/23 08:13 [place] % (Auto) 11.4 % 03/20/23 08:13 Eos % (Auto) 3.0 % 03/20/23 08:13 Baso % (Auto) 0.7 % 03/20/23 08:13 Neut # (Auto) 4.06 10^3/uL (1.8-7.7) 03/20/23 08:13 Lymph # (Auto) 2.9 10^3/uL (0.8-4.8) 03/20/23 08:13 [place] # (Auto) 1.0 10^3/uL (0.2-0.9) H 03/20/23 08:13 Eos # (Auto) 0.3 10^3/uL (0.0-0.8) 03/20/23 08:13 Baso # (Auto) 0.1 10^3/uL (0.0-0.1) 03/20/23 08:13 Nucleated RBC % (auto) 0 % 03/20/23 08:13 Nucleated RBCs # 0.0 /100WBC 03/20/23 08:13 Sodium 137 mmol/L (136-145) 03/20/23 08:13 Potassium 4.2 mmol/L (3.5-5.1) 03/20/23 08:13 Chloride 103 mmol/L (98-107) 03/20/23 08:13 Carbon Dioxide 22 mmol/L (22-29) 03/20/23 08:13 Anion Gap 16.2 (5-19) 03/20/23 08:13 BUN 13 mg/dL (6-20) 03/20/23 08:13 Creatinine 0.8 mg/dL (0.7-1.2) 03/20/23 08:13 GFR Calculation 105.5 mL/min (90-130) 03/20/23 08:13 Glucose 114 mg/dL (65-115) 03/20/23 08:13 Calculated Osmolality 285 mOsm/kg (285-295) 03/20/23 08:13 Lactic Acid 1.1 mmol/L (0.5-2.2) 03/20/23 08:13 Calcium 8.5 mg/dL (8.5-10.5) 03/20/23 08:13 Total Bilirubin 0.3 mg/dL (0.15-1.2) 03/20/23 08:13 AST 25 U/L (0-40) 03/20/23 08:13 ALT 42 U/L (0-41) H 03/20/23 08:13 Alkaline Phosphatase 49 U/L (40-130) 03/20/23 08:13 Total Protein 6.9 g/dL (6.6-8.7) 03/20/23 08:13 Albumin 4.0 g/dL (3.5-5.2) 03/20/23 08:13 Globulin 2.9 g/dL (1.3-4.6) 03/20/23 08:13 Lipase 27 U/L (13-60) 03/20/23 08:13 Discharge Plan Discharge Patient Disposition: Home Clinical Impression: Incarcerated hernia Condition: Stable Prescriptions: New hydrocodone-acetaminophen 5-325 mg tablet 1 tab PO Q6H PRN (Reason: pain) Qty: 20 0RF No Action pantoprazole 40 mg tablet,delayed release (DR/EC) 40 mg PO BID 30 Days Qty: 60 1RF ondansetron HCl 4 mg tablet 4 mg PO Q6H PRN (Reason: nausea and vomiting) Qty: 20 0RF hydrocodone-acetaminophen 5-325 mg tablet 1 tab PO Q6H PRN (Reason: pain) 4 Days Qty: 15 0RF ibuprofen 200 mg Capsule 800 mg PO Q8H PRN (Reason: Pain) lisinopril 20 mg tablet 20 mg PO BID ergocalciferol (vitamin D2) 1,250 mcg (50,000 unit) capsule 1,250 mcg PO Q7D Rx Instructions: on triamterene-hydrochlorothiazid 37.5-25 mg tablet 1 tab PO QAM PRN (Reason: Edema) Discharge Orders: Discharge ED (Routine); Ordered 03/20/23 Ordered By: Colt Amaya Referrals: Leatha Cifuentes FNP [Primary Care Provider] - Patient Instructions: Opioid Safety, Pain Management Activity Restrictions/Additional Instructions: You were seen today for abdominal pain. You have an incarcerated abdominal wall hernia with no signs of obstruction of the bowel tract. Recommend you avoid any heavy lifting use pain medications as prescribed Case management will make arrangements to try to move up the date of your surgery consultation. Reviewed the CT done today General surgery does not feel at this point requires emergency reduction. If her symptoms change you may return to the emergency room to be reevaluated. Coding Level of Care Code ED Sand Mixer for Janeth Sanchez
[2023-03-20] MEDS: ondansetron 2 mg/ML SDV 2 mL 4 MG IVP (07:27)
[2023-03-20] MEDS: sodium chloride 0.9% 1,000 ML 999 ML IV (07:29)
[2023-03-20 07:31] VITALS: BP 151/83; PULSE 81; O2SAT 94
--- NOTE | 2023-03-20 07:31 | CT_ITS ---
WS: [id number] CT ABDOMEN AND PELVIS NONCONTRAST HISTORY: Abdominal pain TECHNIQUE: Imaging performed through the abdomen and pelvis. Coronal and sagittal reformats are submi tted. All CT scans at [facility] use at least one of these dose optimization techniques: auto mated exposure control; mA and/or kV adjustment per patient size (includes targeted exams where dose is matched to clinical indication); or iterative reconstruction. DLP: 1788.55 mGy.cm COMPARISON: 03/10/2023 Lower thorax: Lung bases are clear. Normal size heart. Small hiatal hernia. Liver: Mild hepatomegaly and hepatic steatosis. No bile duct dilatation or mass. Gallbladder: Prior cholecystectomy. Pancreas: Normal size and attenuation. Normal pancreatic duct. No pancreatitis or mass. Spleen: Normal. Adrenal glands: Normal. No mass. Right kidney: Normal size kidney with no mass or hydronephrosis. Left kidney: Normal size kidney with no mass or hydronephrosis. Aorta: Normal abdominal aorta, no aneurysm or atherosclerosis. No free fluid, intraperitoneal air or significant lymphadenopathy. GI tract: Normal noncontrast imaging of the stomach, small bowel and colon. No obstruction or wall th ickening. Prior appendectomy. Abdominal wall: Ventral abdominal wall hernia contains fat and fluid. Hernia orifice is 2.4 cm. There is fluid surrounding the omental fat projecting into the hernia sac. This is very similar to the liam or study. There is no incarcerated GI tract. Pelvis: Beam hardening artifact secondary to patient's body habitus. No abnormality seen. Osseous structures: Unremarkable. CT/CT abdomen pelvis wo con [id number] IMPRESSION: 1. Ventral abdominal wall hernia containing omental fat and fluid. Similar to 03/10/2023. No incarcerated loop of GI tract within the hernia sac. Increased fl uid within the hernia sac may be secondary to omental infarction. 2. Prior cholecystectomy and appendectomy. 3. Hepatic steatosis. 4. Small hiatal hernia.
--- NOTE | 2023-03-20 07:35 | ECG_ITS ---
[facility] Test Date: 2023-03-20 Pat Name: Michi Rain Department: Room: Gender: Male [employer] Developer: : 1980 Requested By: Colt Loredo Order Number: [id number] Sejal MD: Ryan Edwards M.D. Measurements Intervals [place] Rate: 78 P: 54 FL: 160 QRS: 35 QRSD: 92 T: 51 QT: 365 QTc: 417 Interpretive Statements SINUS RHYTHM POSSIBLE RIGHT VENTRICULAR CONDUCTION DELAY [RSR (QR) IN V1/V2] Compared to ECG 01/03/2023 20:44:58 No significant changes Electronically Signed On 03-20-2023 21:58:15 CDT by Ryan Edwards M.D. [id number]
[2023-03-20 08:22] LABS: Basophils # 0.1 10^3/uL (0.0-0.1); Basophils % 0.7 %; Eosinophils # 0.3 10^3/uL (0.0-0.8); Hematocrit 47.9 % (42.0-52.0); Hemoglobin 16.1 g/dL (11.7-16.6); Lymphocytes # 2.9 10^3/uL (0.8-4.8); Lymphocytes % 34.4 %; Mean Corpuscular HGB Conc 33.6 g/dL (30.0-36.0); Mean Corpuscular Volume 95.2 fl (80-94); Mean Platelet Volume 9.8 fL (7.4-10.4); Monocytes % 11.4 %; Neutrophils # 4.06 10^3/uL (1.8-7.7); Neutrophils % 48.5 %; Nucleated Red Blood Cells % 0 %; Platelet Count 307 10^3/cmm (130-400); Red Blood Count 5.03 10^6/uL (4.1-5.3); Red Cell Distribution Width 13.5 % (12.1-15.1); White Blood Count 8.4 10^3/uL (4.0-10.0)
[2023-03-20 08:31] VITALS: BP 136/69; O2SAT 95
[2023-03-20 08:41] LABS: Alanine Aminotransferase 42 U/L (0-41); Alkaline Phosphatase 49 U/L (40-130); Anion Gap 16.2 (5-19); Aspartate Amino Transferase 25 U/L (0-40); Blood Urea Nitrogen 13 mg/dL (6-20); Calcium 8.5 mg/dL (8.5-10.5); Carbon Dioxide 22 mmol/L (22-29); Chloride 103 mmol/L (98-107); Globulin 2.9 g/dL (1.3-4.6); Glomerular Filtration Rate 105.5 mL/min (90-130); Glucose 114 mg/dL (65-115); Lactic Sepsis W/Reflex 1.1 mmol/L (0.5-2.2); Lipase 27 U/L (13-60); Osmolality Calculated 285 mOsm/kg (285-295); Potassium 4.2 mmol/L (3.5-5.1); Sodium 137 mmol/L (136-145); Total Bilirubin 0.3 mg/dL (0.15-1.2); Total Protein 6.9 g/dL (6.6-8.7)
[2023-03-20 09:04] VITALS: BP 123/62; PULSE 73; O2SAT 95
[2023-03-20 09:28] VITALS: BP 123/62; PULSE 77; O2SAT 95
--- NOTE | 2023-03-20 09:33 | DCPLANNER ---
Addendum entered by Nikole Vargas 04/07/23 13:48: Patient had a follow up appointment at general surgery - patient did attend appointment. Original Note: online community manager was asked to call general surgery to see if patients appointment could be moved up. online community manager spoke with Tarun, appointment was rescheduled for Monday, April 03, 2023 at 11:00. online community manager informed patient of the new appointment.
== END 2023-03-20 09:29 | disposition home or self-care (01) ==
PROVIDERS: Emergency Provider Family Medicine; PCP Nurse Practitioner Family
DX: K43.6 Other and unspecified ventral hernia with obstruction, without gangrene (principal)
CPT/HCPCS: 36415; 71045; 74176; 80053; 83605; 83690; 85025; 93005; 96361; 96374; 99285; J2405; J7030

== ENCOUNTER → 2023-04-03 10:50 | Outpatient (BNVA) | payer MEDICARE, MEDICAID, SELFPAY | PROVIDERS: PCP Nurse Practitioner Family; Visit Provider Surgery | DX: K43.2 Incisional hernia without obstruction or gangrene (principal) | CPT/HCPCS: 99213 ==

== ENCOUNTER 2023-04-10 21:36 | Emergency (ER) | payer MEDICARE, MEDICAID, SELFPAY ==
[2023-04-10 21:47] VITALS: BP 162/100; PULSE 70; RESP 16; TEMP 36.9; O2SAT 95; BMI 49.8
[2023-04-10 22:28] VITALS: BP 153/95; PULSE 76; RESP 16; O2SAT 97
[2023-04-10 22:38] LABS: Basophils # 0.1 10^3/uL (0.0-0.1); Basophils % 0.6 %; Eosinophils # 0.3 10^3/uL (0.0-0.8); Eosinophils % 2.7 %; Hematocrit 49.5 % (42.0-52.0); Hemoglobin 16.7 g/dL (11.7-16.6); Lymphocytes % 30.8 %; Mean Corpuscular HGB Conc 33.7 g/dL (30.0-36.0); Mean Corpuscular Hemoglobin 32.8 pg (28.0-34.0); Mean Corpuscular Volume 97.2 fl (80-94); Mean Platelet Volume 9.4 fL (7.4-10.4); Monocytes % 10.3 %; Neutrophils # 5.25 10^3/uL (1.8-7.7); Neutrophils % 54.2 %; Nucleated Red Blood Cells % 0 %; Platelet Count 307 10^3/cmm (130-400); Red Blood Count 5.09 10^6/uL (4.1-5.3); Red Cell Distribution Width 13.4 % (12.1-15.1); White Blood Count 9.7 10^3/uL (4.0-10.0)
--- NOTE | 2023-04-10 22:40 | CTR_ITS ---
PROCEDURE INFORMATION: Exam: CT Abdomen And Pelvis With Contrast Exam date and time: 04/10/2023 11:09 PM Age: 43 years old Clinical indication: Nausea and vomiting; Abdominal pain; Prior surgery; Surgery date: 6+ months; Patient HX: C/O periumbilical pain with n/v. History of prior hernia repair. ; Additional info: Umbilical hernia pain, n/v TECHNIQUE: Imaging protocol: Computed tomography of the abdomen and pelvis with contrast. Radiation optimization: All CT scans at this facility use at least one of these dose optimization techniques: automated exposure control; mA and/or kV adjustment per patient size (includes targeted exams where dose is matched to clinical indication); or iterative reconstruction. Contrast material: OMNI 350; Contrast volume: 100 ml; Contrast route: INTRAVENOUS (IV); REPORTING DATA: Count of CT and Cardiac NM exams in prior 12 months: This patient has received 2 known CTs and 0 known cardiac nuclear medicine studies in the 12 months prior to the current study. COMPARISON: CT abdomen pelvis wo con [id number] 03/20/2023 7:42 AM RADIATION DOSE METRICS: Total DLP (mGy-cm): 1740.03 FINDINGS: Lungs: The visualized lung bases show no consolidation. Diaphragm: There is a small sliding hiatal hernia. Liver: The liver measures 19 cm in length at the mid axillary line, mildly enlarged. There is a Maribell's lobe of the liver, anatomic variant.The spleen is normal in size and density. Mild hepatomegaly without splenomegaly. Gallbladder and bile ducts: There has been a cholecystectomy. There is no evidence of biliary ductal dilation. Pancreas: Normal in size and homogeneous enhancement. No ductal dilation. Spleen: The spleen is normal in size and density. Adrenal glands: The adrenal glands are normal. Kidneys and ureters: There is no hydronephrosis. No renal or obstructive ureteral calculi are identified. Stomach and bowel: There is no evidence of small bowel or colonic obstruction. Appendix: The appendix is not identified. There are surgical sutures along the cecal cone consistent with prior appendectomy. Status post appendectomy and cholecystectomy. Intraperitoneal space: No free air. No significant fluid collection. Vasculature: There is no abdominal aortic aneurysm. Lymph nodes: No enlarged retroperitoneal or mesenteric lymph nodes. Urinary bladder: The bladder shows a normal contour and is free of calcific opacities. Reproductive: Unremarkable as visualized. Bones/joints: No acute fracture. There is a central posterior disc osteophyte complex at L5-S1. No severe central spinal canal stenosis or significant neural foraminal narrowing. Soft tissues: There is redemonstration of a paraumbilical narrow neck epigastric hernia containing mesenteric fat and fluid, not significantly changed from the comparison examination. The narrow mouth and the presence of retained fluid in the hernia suggest incarceration. CT/CT abdomen pelvis w con* [id number] IMPRESSION: 1. Paraumbilical epigastric hernia containing mesenteric fat and fluid, similar to that of the prior examination. The narrow mouth of the hernia and retention of fluid suggest incarceration. The presence or absence of superimposed infection in the fluid is not determined on this examination. However, there is no inflammatory stranding. 2. Additional non emergent findings are stated in the body of the report.
--- NOTE | 2023-04-10 22:44 | ED_ITS ---
Documented by User: ANGEL Loaiza 04/11/23 03:03 HPI - Abdominal Pain General: Chief Complaint: Abdominal Pain Stated Complaint: hernia pain Time Seen by Provider: 04/10/23 22:19 History of Present Illness: Patient is a 43-year-old male comes to the ED with abdominal pain. Patient says he has a history of an umbilical hernia and states that he is scheduled to have it surgically treated next month. Yesterday he started having pain around umbilical region. He rates the pain currently an 8 out of 10 and says it is a constant aching pain. He has also been having nausea and vomiting about 3 to 4 days ago even before the abdominal pain started. Says having trouble keeping any food or fluids down. He endorses having about 3 episodes of diarrhea daily over the past 2 days. Denies any blood in stool. Denies any fevers, chills, dysuria or hematuria. Associated Symptoms: Reports diarrhea, nausea and vomiting; Denies chills, constipation, dysuria, fever(s), hematochezia and hematuria Review of Systems Const: Denies: fever(s), chills or fatigue Eyes: Denies: change in vision or eye discomfort ENMT: Denies: throat pain, odynophagia, nasal discharge or nasal congestion Card: Denies: chest pain, palpitations, edema, swelling of feet/ankles, dyspnea on exertion or orthopnea Resp: Denies: dyspnea, productive cough or non-productive cough GI: Reports: abdominal pain, nausea, vomiting and diarrhea; Denies: constipation or hematochezia : Denies: flank pain, difficulty urinating, dysuria or hematuria Musc: Denies: neck pain, back pain or extremity swelling Skin/Breast: Denies: rash or new lesions Neuro: Denies: headache(s), numbness in extremities or weakness in extremities PFSH ED PFSH: Medical History Peripheral edema Vitamin D deficiency Surgical History History of laparoscopic appendectomy History of laparoscopic cholecystectomy History of umbilical hernia repair Social History Smoking and tobacco status: current every day smoker (6-8 cigarettes/day) cigarettes Packs smoked per day: 0.50 Years cigarettes smoked: 20 Alcohol intake: current Alcohol intake frequency: holidays/special occasions only Alcohol type: beer Substance/Drug Use: never Lives independently: Yes Marital status: service: No Current occupational status: disabled Current gender identity: Male Special judi needs: No Agree to transfusion: Yes Physical Exam Const: COMMON NORMALS: patient oriented x3 and alert HENMT: COMMON NORMALS: normocephalic HEAD & SCALP: normocephalic MOUTH: Normal oral and palatal mucosa present THROAT: posterior oropharynx normal and uvula midline Neck/C-Spine: COMMON NORMALS: supple GENERAL: Yes normal visual inspection Resp: COMMON NORMALS: normal respiratory effort, No retractions, No use of accessory muscles and clear to auscultation bilaterally AUSCULTATION: clear to auscultation bilaterally Cardio: COMMON NORMALS: regular rate, regular rhythm, S1 normal heart sound present, S2 normal heart sound present, No gallops present (Cardio), No clicks present (Cardio), No murmurs present (Cardio) and Peripheral pulses 2+ throughout RATE: regular rate RHYTHM: regular rhythm HEART SOUNDS: S1 normal heart sound present and S2 normal heart sound present PERIPHERAL PULSES: Peripheral pulses 2+ throughout GI: COMMON NORMALS: Normal to inspection, nondistended, normoactive bowel sounds present, Soft to palpation and no masses PALPATION: Yes Soft to palpation, Yes Tenderness to palpation present (GI) (Periumbilical tenderness noted) and Yes Hernia present umbilical (Hard tender 3cm hernia mass palpated) : COMMON NORMALS: Yes no CVA tenderness BLADDER/KIDNEY EXAM: Yes no CVA tenderness Back/Pelvis: COMMON NORMALS: no CVA tenderness Extremity: COMMON NORMALS: normal to inspection Neuro: COMMON NORMALS: patient oriented x3 SENSORIUM/ORIENTATION: Yes alert GAIT: Yes Normal gait present Skin: GENERAL SKIN EXAM: dry skin Course Vital Signs: Vital signs: Vital Signs Temperature 98.4 F 04/10/23 21:47 Pulse Rate 68 04/11/23 02:18 Respiratory Rate 16 04/11/23 02:18 Blood Pressure 140/73 04/11/23 02:18 Pulse Oximetry 94 04/11/23 02:18 Oxygen Delivery Me thod Room Air 04/11/23 01:00 MDM - Abdominal Pain Medical Decision Making Patient is a 43-year-old male comes to the ED with abdominal pain. Patient says he has a history of an umbilical hernia and states that he is scheduled to have it surgically treated next month. Yesterday he started having pain around umbilical region. He rates the pain currently an 8 out of 10 and says it is a constant aching pain. He has also been having nausea and vomiting about 3 to 4 days ago even before the abdominal pain started. Says having trouble keeping any food or fluids down. He endorses having about 3 episodes of diarrhea daily over the past 2 days. Denies any blood in stool. Denies any fevers, chills, dysuria or hematuria. Vital stable. Patient does have a small approximately 3 cm umbilical hernia mass that is palpated and hard and tender. Rest of exam is benign and patient appears nontoxic in no acute distress. Labs are all unremarkable and patient's white count is 9.7. CT of abdomen pelvis shows periumbilical epigastric hernia containing mesenteric fat and fluid which is similar to the prior exam. No inflammatory stranding seen. Patient was given IV pain meds and nausea meds and his symptoms were well controlled. I discussed patient case with Dr. Anne and he agreed that patient is stable for discharge home and given strict return to ED precautions. He is diagnosed with an umbilical hernia and told to follow-up with his surgeon at his scheduled appointment to have hernia surgically fixed. He was sent home with a prescription for nausea and pain meds. Clear liquid diet for the next 24 hours and slowly advance diet as tolerated. Patient understood and agreed with plan. Lab Data I reviewed the patient's lab results. 04/10/23 22:27 04/10/23 22:27 Labs/Radiology: Radiology Impressions Abdomen/Pelvis CT 04/10/23 22:40 IMPRESSION: 1. Paraumbilical epigastric hernia containing mesenteric fat and fluid, similar to that of the prior examination. The narrow mouth of the hernia and retention of fluid suggest incarceration. The presence or absence of superimposed infection in the fluid is not determined on this examination. However, there is no inflammatory stranding. 2. Additional non emergent findings are stated in the body of the report. Laboratory Results WBC 9.7 10^3/uL (4.0-10.0) 04/10/23 22:27 RBC 5.09 10^6/uL (4.1-5.3) 04/10/23: Hgb 16.7 g/dL (11.7-16.6) H 04/10/23: Hct 49.5 % (42.0-52.0) 04/10/23: MCV 97.2 fl (80-94) H 04/10/23: MCH 32.8 pg (28.0-34.0) 04/10/23: MCHC 33.7 g/dL (30.0-36.0) 04/10/23: RDW 13.4 % (12.1-15.1) 04/10/23: Plt Count 307 10^3/cmm (130-400) 04/10/23 MPV 9.4 fL (7.4-10.4) 04/10/23 Neut % (Auto) 54.2 % 04/10/23: Lymph % (Auto) 30.8 % 04/10/23: [facility] [place] [facility] % (Auto) 10.3 % 04/10/23: Eos % (Auto) 2.7 % 04/10/23: Baso % (Auto) 0.6 % 04/10/23 Neut # (Auto) 5.25 10^3/uL (1.8-7.7) 04/10/23 Lymph # (Auto) 3.0 10^3/uL (0.8-4.8) 04/10/23: [facility] # (Auto) 1.0 10^3/uL (0.2-0.9) H 04/10/23: Eos # (Auto) 0.3 10^3/uL (0.0-0.8) 04/10/23 Baso # (Auto) 0.1 10^3/uL (0.0-0.1) 04/10/23 Nucleated RBC % (auto) 0 % 04/10/23 Nucleated RBCs # 0.0 /100WBC 04/10/23: Sodium 136 mmol/L (136-145) 04/10/23: Potassium 4.4 mmol/L (3.5-5.1) 05/12/23 22:27 Chloride 101 mmol/L (98-107) 04/10/23 22:27 Carbon Dioxide 25 mmol/L (22-29) 04/10/23 22:27 Anion Gap 14.4 (5-19) 04/10/23 22:27 BUN 9 mg/dL (6-20) 04/10/23 22:27 Creatinine 0.9 mg/dL (0.7-1.2) 04/10/23 22:27 GFR Calculation 92.1 mL/min (90-130) 04/10/23 22:27 Glucose 122 mg/dL (65-115) H 04/10/23 22:27 Calculated Osmolality 282 mOsm/kg (285-295) L 04/10/23: Calcium 9.6 mg/dL (8.5-10.5) 04/10/23 22: Total Bilirubin 0.3 mg/dL (0.15-1.2) 04/10/23 22: AST 35 U/L (0-40) 04/10/23 22: ALT 49 U/L (0-41) H 04/10/23 22:27 Alkaline Phosphatase 62 U/L (40-130) 04/10/23 22:27 Total Protein 7.2 g/dL (6.6-8.7) 04/10/23 22: Albumin 4.1 g/dL (3.5-5.2) 04/10/23 22: Globulin 3.1 g/dL (1.3-4.6) 04/10/23 22: Lipase 20 U/L (13-60) 04/10/23 22:27 Urine Color Yellow (Yellow) 04/10/23 22:58 Urine Appearance Clear (CLEAR) 04/10/23 22:58 Urine pH 6 (5-7) 04/10/23 22:58 Ur Specific [place] 1.015 (1.005-1.030) 04/10/23 22:58 Urine Protein Neg (Negative) 04/10/23 22:58 Urine Glucose (UA) Norm (Normal) 04/10/23 22:58 Urine Ketones Negative (Negative) 04/10/23 22:58 Urine Blood Neg (Negative) 04/10/23 22:58 Urine Nitrate Negative (Negative) 04/10/23 22:58 Urine Bilirubin Neg (Negative) 04/10/23 22:58 Urine Urobilinogen 1 mg/dL (Negative) H 04/10/23 22:58 Ur Leukocyte Esterase Negative (Negative) 04/10/23 22:58 Discharge Plan Discharge Patient Disposition: Home Clinical Impression: Periumbilical hernia Condition: Stable Prescriptions: New metoclopramide HCl 10 mg tablet 10 mg PO Q6H PRN (Reason: nausea and vomiting) Qty: 20 0RF prednisone 20 mg tablet 20 mg PO BID 3 Days Qty: 6 0RF No Action tramadol 50 mg tablet 50 mg PO TID PRN (Reason: pain) 10 Days Qty: 30 0RF ondansetron HCl 4 mg tablet 4 mg PO Q6H PRN (Reason: nausea and vomiting) Qty: 20 0RF ergocalciferol (vitamin D2) 1,250 mcg (50,000 unit) capsule 1,250 mcg PO Q7D Qty: 12 0RF Rx Instructions: on lisinopril 20 mg tablet 20 mg PO BID Qty: 60 2RF pantoprazole 40 mg tablet,delayed release (DR/EC) 40 mg PO BID 30 Days Qty: 60 1RF triamterene-hydrochlorothiazid 37.5-25 mg tablet 1 tab PO QAM PRN (Reason: Edema) Qty: 30 2RF ibuprofen 200 mg Capsule 800 mg PO Q8H PRN (Reason: Pain) Discharge Orders: Discharge ED (Routine); Ordered 04/11/23 Ordered By: Philip Bryant Referrals: Leatha Cifuentes FNP [Primary Care Provider] - Discharge Diet: Advance as tolerated and Clear Liquid Discharge Activity: Limit activity as instructed Patient Instructions: Umbilical Hernia (ED), Opioid Safety Activity Restrictions/Additional Instructions: Follow-up with surgeon at your scheduled appointment to have umbilical hernia surgically repaired. Limit any lifting to under 10 pounds. Clear liquid diet for the next 24 hours then slowly advance diet as tolerated. Take medications as prescribed. Return to the ER or your medical provider if condition worsens. Please read and understand discharge instructions. Thank you for choosing [facility] for your healthcare needs today. Please realize this is an emergency room and that we are providing you with a medical screening exam and this may not be complete and all inclusive of all the testing and or work up that you may need to determine your ailment or severity of your illness. It is very important that you follow up as instructed or that you return to the Emergency Department should you have concerns or if your condition changes or worsens in any way. Coding Level of Care Code ED Record Clerk for Janeth Fwgeovanna Documented by User: Ezekiel Anne, DO 04/11/23 05:17 HPI - Abdominal Pain General: Chief Complaint: Abdominal Pain Stated Complaint: hernia pain Time Seen by Provider: 04/10/23 22:19 [facility] ED PFSH: Medical History Peripheral edema Vitamin D deficiency Surgical History History of laparoscopic appendectomy History of laparoscopic cholecystectomy History of umbilical hernia repair Social History Smoking and tobacco status: current every day smoker (6-8 cigarettes/day) cigarettes Packs smoked per day: 0.50 Years cigarettes smoked: 20 Alcohol intake: current Alcohol intake frequency: holidays/special occasions only Alcohol type: beer Substance/Drug Use: never Lives independently: Yes Marital status: service: No Current occupational status: disabled Current gender identity: Male Special judi needs: No Agree to transfusion: Yes Course Vital Signs: Vital signs: Vital Signs Temperature 98.4 F 04/10/23 21:47 Pulse Rate 68 04/11/23 02:18 Respiratory Rate 16 04/11/23 02:18 Blood Pressure 140/73 04/11/23 02:18 Pulse Oximetry 94 04/11/23 02:18 Oxygen Delivery Me thod Room Air 04/11/23 01:00 MDM - Abdominal Pain Medical Decision Making Patient is a 43-year-old male comes to the ED with abdominal pain. Patient says he has a history of an umbilical hernia and states that he is scheduled to have it surgically treated next month. Yesterday he started having pain around umbilical region. He rates the pain currently an 8 out of 10 and says it is a constant aching pain. He has also been having nausea and vomiting about 3 to 4 days ago even before the abdominal pain started. Says having trouble keeping any food or fluids down. He endorses having about 3 episodes of diarrhea daily over the past 2 days. Denies any blood in stool. Denies any fevers, chills, dysuria or hematuria. Vital stable. Patient does have a small approximately 3 cm umbilical hernia mass that is palpated and hard and tender. Rest of exam is benign and patient appears nontoxic in no acute distress. Labs are all unremarkable and patient's white count is 9.7. CT of abdomen pelvis shows periumbilical epigastric hernia containing mesenteric fat and fluid which is similar to the prior exam. No inflammatory stranding seen. Patient was given IV pain meds and nausea meds and his symptoms were well controlled. I discussed patient case with Dr. Anne and he agreed that patient is stable for discharge home and given strict return to ED precautions. He is diagnosed with an umbilical hernia and told to follow-up with his surgeon at his scheduled appointment to have hernia surgically fixed. He was sent home with a prescription for nausea and pain meds. Clear liquid diet for the next 24 hours and slowly advance diet as tolerated. Patient understood and agreed with plan. This patient was originally seen by Mr. Manny PA-C.? I agree with his history, evaluation, and treatment. Lab Data 04/10/23 22:27 04/10/23 22:27 Labs/Radiology: Radiology Impressions Abdomen/Pelvis CT 04/10/23 22:40 IMPRESSION: 1. Paraumbilical epigastric hernia containing mesenteric fat and fluid, similar to that of the prior examination. The narrow mouth of the hernia and retention of fluid suggest incarceration. The presence or absence of superimposed infection in the fluid is not determined on this examination. However, there is no inflammatory stranding. 2. Additional non emergent findings are stated in the body of the report. Laboratory Results WBC 9.7 10^3/uL (4.0-10.0) 04/10/23 22:27 RBC 5.09 10^6/uL (4.1-5.3) 04/10/23 22: Hgb 16.7 g/dL (11.7-16.6) H 04/10/23 22:27 Hct 49.5 % (42.0-52.0) 04/10/23: MCV 97.2 fl (80-94) H 04/10/23: MCH 32.8 pg (28.0-34.0) 04/10/23: MCHC 33.7 g/dL (30.0-36.0) 04/10/23: RDW 13.4 % (12.1-15.1) 04/10/23: Plt Count 307 10^3/cmm (130-400) 04/10/23: MPV 9.4 fL (7.4-10.4) 04/10/23: Neut % (Auto) 54.2 % 04/10/23: Lymph % (Auto) 30.8 % 04/10/23: [facility] [place] [facility] % (Auto) 10.3 % 04/10/23: Eos % (Auto) 2.7 % 04/10/23 Baso % (Auto) 0.6 % 04/10/23: Neut # (Auto) 5.25 10^3/uL (1.8-7.7) 04/10/23: Lymph # (Auto) 3.0 10^3/uL (0.8-4.8) 04/10/23: [facility] # (Auto) 1.0 10^3/uL (0.2-0.9) H 04/10/23: Eos # (Auto) 0.3 10^3/uL (0.0-0.8) 04/10/23: Baso # (Auto) 0.1 10^3/uL (0.0-0.1) 04/10/23 Nucleated RBC % (auto) 0 % 04/10/23 Nucleated RBCs # 0.0 /100WBC 04/10/23: Sodium 136 mmol/L (136-145) 04/10/23: Potassium 4.4 mmol/L (3.5-5.1) 04/10/23: Chloride 101 mmol/L (98-107) 04/10/23: Carbon Dioxide 25 mmol/L (22-29) 04/10/23 22:27 Anion Gap 14.4 (5-19) 04/10/23 22:27 BUN 9 mg/dL (6-20) 04/10/23 22: Creatinine 0.9 mg/dL (0.7-1.2) 04/10/23 22:27 GFR Calculation 92.1 mL/min (90-130) 04/10/23 22: Glucose 122 mg/dL (65-115) H 04/10/23 22:27 Calculated Osmolality 282 mOsm/kg (285-295) L 04/10/23 22:27 Calcium 9.6 mg/dL (8.5-10.5) 04/10/23 22: Total Bilirubin 0.3 mg/dL (0.15-1.2) 04/10/23 22: AST 35 U/L (0-40) 04/10/23 22: ALT 49 U/L (0-41) H 04/10/23 22:27 Alkaline Phosphatase 62 U/L (40-130) 04/10/23 22:27 Total Protein 7.2 g/dL (6.6-8.7) 04/10/23 22:27 Albumin 4.1 g/dL (3.5-5.2) 04/10/23 22: Globulin 3.1 g/dL (1.3-4.6) 04/10/23 22:27 Lipase 20 U/L (13-60) 04/10/23 22:27 Urine Color Yellow (Yellow) 04/10/23 22:58 Urine Appearance Clear (CLEAR) 04/10/23 22:58 Urine pH 6 (5-7) 04/10/23 22:58 Ur Specific [place] 1.015 (1.005-1.030) 04/10/23 22:58 Urine Protein Neg (Negative) 04/10/23 22:58 Urine Glucose (UA) Norm (Normal) 04/10/23 22:58 Urine Ketones Negative (Negative) 04/10/23 22:58 Urine Blood Neg (Negative) 04/10/23 22:58 Urine Nitrate Negative (Negative) 04/10/23 22:58 Urine Bilirubin Neg (Negative) 04/10/23 22:58 Urine Urobilinogen 1 mg/dL (Negative) H 04/10/23 22:58 Ur Leukocyte Esterase Negative (Negative) 04/10/23 22:58 Discharge Plan Discharge Patient Disposition: Home Clinical Impression: Periumbilical hernia Condition: Stable Prescriptions: New metoclopramide HCl 10 mg tablet 10 mg PO Q6H PRN (Reason: nausea and vomiting) Qty: 20 0RF prednisone 20 mg tablet 20 mg PO BID 3 Days Qty: 6 0RF No Action tramadol 50 mg tablet 50 mg PO TID PRN (Reason: pain) 10 Days Qty: 30 0RF ondansetron HCl 4 mg tablet 4 mg PO Q6H PRN (Reason: nausea and vomiting) Qty: 20 0RF ergocalciferol (vitamin D2) 1,250 mcg (50,000 unit) capsule 1,250 mcg PO Q7D Qty: 12 0RF Rx Instructions: on lisinopril 20 mg tablet 20 mg PO BID Qty: 60 2RF pantoprazole 40 mg tablet,delayed release (DR/EC) 40 mg PO BID 30 Days Qty: 60 1RF triamterene-hydrochlorothiazid 37.5-25 mg tablet 1 tab PO QAM PRN (Reason: Edema) Qty: 30 2RF ibuprofen 200 mg Capsule 800 mg PO Q8H PRN (Reason: Pain) Discharge Orders: Discharge ED (Routine); Ordered 04/11/23 Ordered By: Philip Bryant Referrals: Leatha Cifuentes FNP [Primary Care Provider] - Discharge Diet: Advance as tolerated and Clear Liquid Discharge Activity: Limit activity as instructed Patient Instructions: Umbilical Hernia (ED), Opioid Safety Activity Restrictions/Additional Instructions: Follow-up with surgeon at your scheduled appointment to have umbilical hernia sanchez rgically repaired. Limit any lifting to under 10 pounds. Clear liquid diet for the next 24 hours then slowly advance diet as tolerated. Take medications as prescribed. Return to the ER or your medical provider if condition worsens. Please read and understand discharge instructions. Thank you for choosing [facility] for your healthcare needs today. Please realize this is an emergency room and that we are providing you with a medical screening exam and this may not be complete and all inclusive of all the testing and or work up that you may need to determine your ailment or severity of your illness. It is very important that you follow up as instructed or that you return to the Emergency Department should you have concerns or if your condition changes or worsens in any way. Coding Level of Care Code ED Record Clerk for Janeth Sancehz
[2023-04-10] MEDS: sodium chloride 0.9% 1,000 ML 999 ML IV (22:52)
[2023-04-10] MEDS: ondansetron 2 mg/ML SDV 2 mL 4 MG IVP (22:52)
[2023-04-10 22:53] VITALS: RESP 16
[2023-04-10] MEDS: morphine 4 mg/mL SDV 1 mL IVP (22:53)
[2023-04-10 22:57] LABS: Alanine Aminotransferase 49 U/L (0-41); Albumin Level 4.1 g/dL (3.5-5.2); Alkaline Phosphatase 62 U/L (40-130); Anion Gap 14.4 (5-19); Aspartate Amino Transferase 35 U/L (0-40); Blood Urea Nitrogen 9 mg/dL (6-20); Calcium 9.6 mg/dL (8.5-10.5); Carbon Dioxide 25 mmol/L (22-29); Chloride 101 mmol/L (98-107); Globulin 3.1 g/dL (1.3-4.6); Glomerular Filtration Rate 92.1 mL/min (90-130); Glucose 122 mg/dL (65-115); Lipase 20 U/L (13-60); Osmolality Calculated 282 mOsm/kg (285-295); Potassium 4.4 mmol/L (3.5-5.1); Sodium 136 mmol/L (136-145); Total Bilirubin 0.3 mg/dL (0.15-1.2); Total Protein 7.2 g/dL (6.6-8.7)
[2023-04-10] MEDS: iohexol 350 mg/mL 500 mL Btl (per mL) IV (23:14)
[2023-04-10 23:15] LABS: Add Urine Microscopic? NO; Charge for UA Resulting for Rev
[2023-04-10 23:19] LABS: Bilirubin Urine Neg (Negative); Blood Urine Neg (Negative); Glucose Urine UA Norm (Normal); Ketones Urine Negative (Negative); Leukocyte Esterase Urine Negative (Negative); Nitrate Urine Negative (Negative); Protein Urine Neg (Negative); Specific Gravity, Urine 1.015 (1.005-1.030); Urine Appearance Clear (CLEAR); Urine Color Yellow (Yellow); Urobilinogen Urine 1 mg/dL (Negative); pH Urine 6 (5-7)
[2023-04-11] VITALS (7 sets, daily range): BP systolic 140–179; BP diastolic 73–118; PULSE 66–71; RESP 16; O2SAT 92–95
[2023-04-11] MEDS: HYDROmorphone 1 mg/mL INJ 1 mL IVP (01:27)
[2023-04-11] MEDS: metoclopramide 5 mg/mL SDV 2 mL 10 MG IVP (01:28)
[2023-04-11] MEDS: HYDROcodone-acetaminophen 7.5-325 mg Tablet 1 TAB PO (02:19)
== END 2023-04-11 02:22 | disposition home or self-care (01) ==
PROVIDERS: Emergency Provider Physician Assistant; PCP Nurse Practitioner Family
DX: K42.9 Umbilical hernia without obstruction or gangrene (principal); F17.210 Nicotine dependence, cigarettes, uncomplicated
CPT/HCPCS: 36415; 74177; 80053; 81003; 83690; 85025; 96361; 96374; 96375; 99284; J1170; J2270; J2405; J2765; J2930; J7030; Q9967

== ENCOUNTER 2023-04-17 12:48 | Emergency (ER) | payer MEDICARE, MEDICAID, SELFPAY ==
[2023-04-17] VITALS (8 sets, daily range): BP systolic 135–171; BP diastolic 82–106; PULSE 54–77; RESP 15–20; TEMP 36.7; O2SAT 92–98; BMI 49.8
--- NOTE | 2023-04-17 16:34 | W.ED.ABDPA2 ---
HPI - Abdominal Pain General: Chief Complaint: Abdominal Pain Stated Complaint: abd pains/passing out Time Seen by Provider: 04/17/23 16:34 History of Present Illness: Mr. Rain is a 43-year-old gentleman presenting to the emergency department for evaluation of worsening abdominal pain. He has known history of ventral hernia and has had intermittent pain over the past few months. Over the past 2 days his pain has been constant and he had a syncopal episode associated with this severity. He continues to have nausea and vomiting. Worse with palpation and movement. No changes in bowel movement or flatus. No other specific changes in health, exacerbating, or alleviating factors identified. Onset (ago): day(s) Severity: moderate Quality: aching and sharp Exacerbating factors: nothing Relieving factors: nothing Review of Systems General: Reports: 10 or more systems reviewed and unremarkable except in HPI and below PFSH ED PFSH: Medical History Peripheral edema Vitamin D deficiency Surgical History History of laparoscopic appendectomy History of laparoscopic cholecystectomy History of umbilical hernia repair Social History Smoking and tobacco status: current every day smoker (6-8 cigarettes/day) cigarettes Packs smoked per day: 0.50 Years cigarettes smoked: 20 Alcohol intake: current Alcohol intake frequency: holidays/special occasions only Alcohol type: beer Substance/Drug Use: never Lives independently: Yes Marital status: service: No Current occupational status: disabled Current gender identity: Male Special judi needs: No Agree to transfusion: Yes Physical Exam Const: COMMON NORMALS: alert GENERAL APPEARANCE: cooperative and well developed HENMT: COMMON NORMALS: normocephalic and atraumatic HEAD & SCALP: normocephalic and atraumatic Eye: COMMON NORMALS: conjunctivae normal CONJUNCTIVA: Yes conjunctivae normal SCLERA: sclerae normal Neck/C-Spine: COMMON NORMALS: supple GENERAL: Yes trachea midline Resp: COMMON NORMALS: clear to auscultation bilaterally EFFORT & INSPECTION: Yes able to speak in complete sentences AUSCULTATION: clear to auscultation bilaterally Cardio: COMMON NORMALS: regular rate and regular rhythm RATE: regular rate RHYTHM: regular rhythm GI: COMMON NORMALS: Soft to palpation PALPATION: Yes Soft to palpation, Yes Tenderness to palpation present (GI), Yes Guarding due to palpation present (GI) and No Rigid due to palpation Extremity: GENERAL: Yes normal exam except as noted and No edema Neuro: COMMON NORMALS: moves all extremities SENSORIUM/ORIENTATION: Yes alert and No Orientation impaired Psych: COMMON NORMALS: mental status grossly normal and Normal thought process present THOUGHT PROCESS: Normal thought process present Course Vital Signs: Vital signs: Vital Signs Temperature 98.1 F 04/17/23 13:18 Pulse Rate 61 04/17/23 19:07 Respiratory Rate 15 04/17/23 19:00 Blood Pressure 165/89 04/17/23 19:07 Pulse Oximetry 98 04/17/23 19:07 Oxygen Delivery Me thod Room Air 04/17/23 13:18 MDM - Abdominal Pain Medical Decision Making 43-year-old gentleman with known history of hernia pending outpatient surgical management presenting due to worsening abdominal pain with episode of syncope. Exam as above. No evidence of acute surgical abdomen or overlying skin changes of hernia. Twelve-lead EKG shows a demonstrates sinus rhythm at a rate of 53. VT interval 175. QRS duration 101. QTc 404. Normal [place]. Labs with no significant hematologic or metabolic abnormalities to explain symptoms. CT demonstrates stable periumbilical fat and fluid collection in the ventral wall. I do not believe that the patient has evidence of infection of this fluid. Incidental findings discussed. Patient improved with analgesia and antiemetic. Most likely etiology of symptoms continues to be related to fat-containing hernia. The results of ED evaluation were discussed with the patient including prescriptions and/or symptomatic cares (if applicable) including appropriate and responsible use, followup plan, and return precautions. The patient verbalized understanding and felt safe for discharge. Medical Records I reviewed the patient's medical records. Lab Data I reviewed the patient's lab results. 04/17/23 16:50 04/17/23 16:50 Labs/Radiology: Radiology Impressions Abdomen/Pelvis CT 04/17/23 17:36 IMPRESSION: 1. Stable periumbilical fat and fluid containing ventral abdominal wall hernia with narrow neck. Correlate for incarceration and possible infection clinically. 2. Possible 3 cm solid mass in the posterior upper pole of the left kidney. Recommend renal protocol CT for follow-up. Laboratory Results WBC 7.5 10^3/uL (4.0-10.0) 04/17/23 16:50 RBC 5.06 10^6/uL (4.1-5.3) 04/17/23 16:50 Hgb 16.4 g/dL (11.7-16.6) 04/17/23 16:50 Hct 49.2 % (42.0-52.0) 04/17/23 16:50 MCV 97.2 fl (80-94) H 04/17/23 16:50 MCH 32.4 pg (28.0-34.0) 04/17/23 16:50 MCHC 33.3 g/dL (30.0-36.0) 04/17/23 16:50 RDW 13.4 % (12.1-15.1) 04/17/23 16:50 Plt Count 283 10^3/cmm (130-400) 04/17/23 16:50 MPV 9.7 fL (7.4-10.4) 04/17/23 16:50 Neut % (Auto) 56.0 % 04/17/23 16:50 Lymph % (Auto) 31.1 % 04/17/23 16:50 [place] % (Auto) 8.3 % 04/17/23 16:50 Eos % (Auto) 2.0 % 04/17/23 16:50 Baso % (Auto) 0.7 % 04/17/23 16:50 Neut # (Auto) 4.19 10^3/uL (1.8-7.7) 04/17/23 16:50 Lymph # (Auto) 2.3 10^3/uL (0.8-4.8) 04/17/23 16:50 [place] # (Auto) 0.6 10^3/uL (0.2-0.9) 04/17/23 16:50 Eos # (Auto) 0.2 10^3/uL (0.0-0.8) 04/17/23 16:50 Baso # (Auto) 0.1 10^3/uL (0.0-0.1) 04/17/23 16:50 Nucleated RBC % (auto) 0 % 04/17/23 16:50 Nucleated RBCs # 0.0 /100WBC 04/17/23 16:50 Sodium 139 mmol/L (136-145) 04/17/23 16:50 Potassium 4.4 mmol/L (3.5-5.1) 04/17/23 16:50 Chloride 101 mmol/L (98-107) 04/17/23 16:50 Carbon Dioxide 25 mmol/L (22-29) 04/17/23 16:50 Anion Gap 17.4 (5-19) 04/17/23 16:50 BUN 10 mg/dL (6-20) 04/17/23 16:50 Creatinine 0.8 mg/dL (0.7-1.2) 04/17/23 16:50 GFR Calculation 105.5 mL/min (90-130) 04/17/23 16:50 Glucose 112 mg/dL (65-115) 04/17/23 16:50 Calculated Osmolality 288 mOsm/kg (285-295) 04/17/23 16:50 Lactic Acid 1.2 mmol/L (0.5-2.2) 04/17/23 16:50 Calcium 9.0 mg/dL (8.5-10.5) 04/17/23 16:50 Total Bilirubin 0.6 mg/dL (0.15-1.2) 04/17/23 16:50 AST 20 U/L (0-40) 04/17/23 16:50 ALT 36 U/L (0-41) 04/17/23 16:50 Alkaline Phosphatase 54 U/L (40-130) 04/17/23 16:50 Total Protein 6.8 g/dL (6.6-8.7) 04/17/23 16:50 Albumin 4.3 g/dL (3.5-5.2) 04/17/23 16:50 Globulin 2.5 g/dL (1.3-4.6) 04/17/23 16:50 Discharge Plan Discharge Patient Disposition: Home Clinical Impression: Periumbilical hernia, Abdominal pain, Syncope Condition: Stable Prescriptions: New oxycodone 5 mg capsule 5 mg PO Q4H PRN (Reason: pain) Qty: 24 0RF ondansetron 4 mg tablet,disintegrating 4 mg PO Q8H PRN (Reason: nausea and vomiting) Qty: 15 0RF No Action ondansetron HCl 4 mg tablet 4 mg PO Q6H PRN (Reason: nausea and vomiting) Qty: 20 0RF ergocalciferol (vitamin D2) 1,250 mcg (50,000 unit) capsule 1,250 mcg PO Q7D Qty: 12 0RF Rx Instructions: on lisinopril 20 mg tablet 20 mg PO BID Qty: 60 2RF pantoprazole 40 mg tablet,delayed release (DR/EC) 40 mg PO BID 30 Days Qty: 60 1RF triamterene-hydrochlorothiazid 37.5-25 mg tablet 1 tab PO QAM PRN (Reason: Edema) Qty: 30 2RF tramadol 50 mg tablet 50 mg PO TID PRN (Reason: pain) Qty: 90 0RF ibuprofen 200 mg Capsule 800 mg PO Q8H PRN (Reason: Pain) metoclopramide HCl 10 mg tablet 10 mg PO Q6H PRN (Reason: nausea and vomiting) Qty: 20 0RF Discharge Orders: Discharge ED (Routine); Ordered 04/17/23 Ordered By: Ric Oliver Referrals: Leatha Cifuentes FNP [Primary Care Provider] - Discharge Diet: Usual diet Discharge Activity: Increase activity as tolerated Patient Instructions: Abdominal Pain (ED), Ventral Hernia (ED), Opioid Safety Activity Restrictions/Additional Instructions: Thank you for visiting the emergency department. You were seen and evaluated for abdominal pain. Laboratory studies did not reveal significant abnormalities and your CT scan appears similar. The most likely cause of your symptoms is still related to fat and fluid containing hernia without evidence of bowel involvement or obstruction. Incidentally you were noted to have a possible renal mass, radiology recommendation is for renal protocol CT for follow-up which can be arranged by your primary care provider. I will prescribe oxycodone, use this cautiously as discussed. I will also prescribe Zofran for nausea and vomiting. You may use [id number] medications such as acetaminophen and ibuprofen for pain however please do not exceed the daily recommended dosage as listed on the packaging and please keep in mind that many namebrand medications contain the same active ingredients. Please avoid these medications if previously instructed to do so by another physician due to other underlying medical condition. Please call your surgeon on Thursday for further instructions/evaluation. Return to the emergency department for uncontrolled symptoms, changes inability to have bowel movements or urinate, or anything else that you are concerned about and feel needs emergency department evaluation. Coding Level of Care Code ED Tank Washer for Janeth Sanchez
--- NOTE | 2023-04-17 16:39 | ECG_ITS ---
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 Measurements Intervals [place] Rate: 53 P: 126 MN: 175 QRS: 65 QRSD: 101 T: 117 QT: 421 QTc: 397 Interpretive Statements SINUS BRADYCARDIA POSSIBLE RIGHT VENTRICULAR CONDUCTION DELAY [RSR (QR) IN V1/V2] MODERATE ST DEPRESSION [0.05+ mV ST DEPRESSION] Compared to ECG 03/20/2023 07:35:49 ST (T wave) deviation now present Sinus rhythm no longer present Electronically Signed On 04-18-2023 5:57:00 CDT by Ramona Ceja M.D. [id number]
[2023-04-17] MEDS: morphine 4 mg/mL SDV 1 mL IVP ×2 (16:58→18:27)
[2023-04-17] MEDS: ondansetron 2 mg/ML SDV 2 mL 4 MG IVP (16:58)
[2023-04-17 17:10] LABS: Basophils # 0.1 10^3/uL (0.0-0.1); Basophils % 0.7 %; Eosinophils # 0.2 10^3/uL (0.0-0.8); Hematocrit 49.2 % (42.0-52.0); Hemoglobin 16.4 g/dL (11.7-16.6); Lymphocytes # 2.3 10^3/uL (0.8-4.8); Lymphocytes % 31.1 %; Mean Corpuscular HGB Conc 33.3 g/dL (30.0-36.0); Mean Corpuscular Hemoglobin 32.4 pg (28.0-34.0); Mean Corpuscular Volume 97.2 fl (80-94); Mean Platelet Volume 9.7 fL (7.4-10.4); Monocytes # 0.6 10^3/uL (0.2-0.9); Monocytes % 8.3 %; Neutrophils # 4.19 10^3/uL (1.8-7.7); Nucleated Red Blood Cells % 0 %; Platelet Count 283 10^3/cmm (130-400); Red Blood Count 5.06 10^6/uL (4.1-5.3); Red Cell Distribution Width 13.4 % (12.1-15.1); White Blood Count 7.5 10^3/uL (4.0-10.0)
--- NOTE | 2023-04-17 17:36 | CTR_ITS ---
PROCEDURE INFORMATION: Exam: CT Abdomen And Pelvis With Contrast Exam date and time: 04/17/2023 5:59 PM Age: 43 years old Clinical indication: Abdominal pain; Generalized; Additional info: Abd pain, worsening TECHNIQUE: Imaging protocol: Computed tomography of the abdomen and pelvis with contrast. Radiation optimization: All CT scans at this facility use at least one of these dose optimization techniques: automated exposure control; mA and/or kV adjustment per patient size (includes targeted exams where dose is matched to clinical indication); or iterative reconstruction. Contrast material: 1401.23; Contrast volume: 100 ml; Contrast route: INTRAVENOUS (IV); REPORTING DATA: Count of CT and Cardiac NM exams in prior 12 months: This patient has received 3 known CTs and 0 known cardiac nuclear medicine studies in the 12 months prior to the current study. COMPARISON: CT abdomen pelvis w con* [id number] 04/10/2023 11:09 PM RADIATION DOSE METRICS: Total DLP (mGy-cm): 1401.23 FINDINGS: Lungs: Minimal bibasilar atelectasis. Liver: Stable hepatomegaly with fatty infiltration. Gallbladder and bile ducts: Stable cholecystectomy. Pancreas: Normal. No ductal dilation. Spleen: Normal. No splenomegaly. Adrenal glands: Normal. No mass. Kidneys and ureters: Possible solid mass posterior upper pole of the left kidney measuring 3 cm on series 4, image 39 and series 7, image 38 versus lobulated renal contour. This is similar to previous in retrospect. Unchanged subcentimeter right renal cysts. Stomach and bowel: Periumbilical hernia containing fat and fluid with narrow neck is similar in configuration to the previous exam. Appendix: Appendectomy changes are stable. Intraperitoneal space: Unremarkable. No free air. No significant fluid collection. Vasculature: Unremarkable. No abdominal aortic aneurysm. Lymph nodes: Unremarkable. No enlarged lymph nodes. Urinary bladder: Unremarkable as visualized. Reproductive: Unremarkable as visualized. Bones/joints: Unremarkable. No acute fracture. Soft tissues: Unremarkable. CT/CT abdomen pelvis w con* [id number] IMPRESSION: 1. Stable periumbilical fat and fluid containing ventral abdominal wall hernia with narrow neck. Correlate for incarceration and possible infection clinically. 2. Possible 3 cm solid mass in the posterior upper pole of the left kidney. Recommend renal protocol CT for follow-up.
[2023-04-17 17:37] LABS: Lactic Sepsis W/Reflex 1.2 mmol/L (0.5-2.2)
[2023-04-17 17:39] LABS: Alanine Aminotransferase 36 U/L (0-41); Albumin Level 4.3 g/dL (3.5-5.2); Alkaline Phosphatase 54 U/L (40-130); Aspartate Amino Transferase 20 U/L (0-40); Blood Urea Nitrogen 10 mg/dL (6-20); Carbon Dioxide 25 mmol/L (22-29); Chloride 101 mmol/L (98-107); Globulin 2.5 g/dL (1.3-4.6); Glomerular Filtration Rate 105.5 mL/min (90-130); Glucose 112 mg/dL (65-115); Osmolality Calculated 288 mOsm/kg (285-295); Sodium 139 mmol/L (136-145); Total Bilirubin 0.6 mg/dL (0.15-1.2); Total Protein 6.8 g/dL (6.6-8.7)
[2023-04-17 18:08] LABS: Anion Gap 17.4 (5-19); Potassium 4.4 mmol/L (3.5-5.1)
== END 2023-04-17 19:08 | disposition home or self-care (01) ==
PROVIDERS: Emergency Provider Emergency Medicine; PCP Nurse Practitioner Family
DX: K42.9 Umbilical hernia without obstruction or gangrene (principal); R55 Syncope and collapse; F17.210 Nicotine dependence, cigarettes, uncomplicated
CPT/HCPCS: 74177; 80053; 83605; 85025; 93005; 96374; 96375; 96376; 99285; J2270; J2405

== ENCOUNTER 2023-05-05 06:33 | Emergency (ER) | payer MEDICARE, MEDICAID, SELFPAY ==
[2023-05-05 06:35] VITALS: BMI 51.1
[2023-05-05 06:40] VITALS: BP 150/99; PULSE 74; RESP 17; TEMP 36.8; O2SAT 96
--- NOTE | 2023-05-05 06:49 | ED_ITS ---
HPI - Abdominal Pain General: Chief Complaint: Abdominal Pain Stated Complaint: ABD PAIN Time Seen by Provider: 05/05/23 06:44 Source: patient Mode of arrival: ambulatory History of Present Illness: 43-year-old male presents emergency room incarcerated incisional hernia. Is been incarcerated for some time he intermittently has pain when it has been here several times he has seen surgery. They are scheduled to do reduction of the hernia next week. He complains of increasing pain he was seen about 9 to 10 days ago and given the tablets of tramadol. He has had usual bowel movements has been very nauseous but not throwing up his main complaint is of pain. MD elicited complaint: abdominal pain Pertinent past history: none Onset (ago): week(s) Location: Diffuse Quality: cramping Exacerbating factors: vomiting Associated Symptoms: Reports bloating, GI cramping and vomiting; Denies anorexia, belching, change in bowel habits, change in stool character, chills, coffee ground emesis, constipation, diarrhea, dyspepsia, dysuria, excessive flatus, fever(s), heartburn, hematochezia, hematuria, hematemesis, fecal incontinence, loose stools, melena, nausea, poor appetite, syncope and other Review of Systems Const: Denies: fever(s), chills, fatigue or malaise ENMT: Denies: throat pain, ear or mastoid pain, nasal discharge or nasal congestion Card: Denies: chest pain, palpitations, irregular heart rhythm or syncope Resp: Denies: dyspnea, productive cough or non-productive cough GI: Reports: abdominal pain, vomiting, bloating and GI cramping; Denies: nausea, hematemesis, coffee ground emesis, heartburn, diarrhea, constipation, belching, excessive flatus, fecal incontinence, change in bowel habits, change in stool character, hematochezia, melena or other : Denies: dysuria or hematuria Skin/Breast: Denies: rash or pruritus PFSH ED PFSH: Medical History Peripheral edema Vitamin D deficiency Surgical History History of laparoscopic appendectomy History of laparoscopic cholecystectomy History of umbilical hernia repair Social History (Reviewed 05/05/23 @ 06:57 by MILAD Nj Smoking and tobacco status: current every day smoker (6-8 cigarettes/day) cigarettes Packs smoked per day: 0.50 Years cigarettes smoked: 20 Alcohol intake: current Alcohol intake frequency: holidays/special occasions only Alcohol type: beer Substance/Drug Use: never Lives independently: Yes Marital status: service: No Current occupational status: disabled Current gender identity: Male Special judi needs: No Agree to transfusion: Yes Physical Exam Const: GENERAL APPEARANCE: cooperative and comfortable NUTRITIONAL APPEARANCE: obese ORIENTATION/CONSCIOUSNESS: Yes awake, Yes oriented to person, Yes oriented to place and Yes oriented to time HENMT: COMMON NORMALS: normocephalic, atraumatic and hearing grossly normal bilaterally HEAD & SCALP: normocephalic and atraumatic Resp: COMMON NORMALS: normal respiratory effort, No retractions, No use of accessory muscles and clear to auscultation bilaterally AUSCULTATION: clear to auscultation bilaterally Cardio: COMMON NORMALS: regular rate, regular rhythm and No murmurs present (Cardio) RATE: regular rate RHYTHM: regular rhythm GI: COMMON NORMALS: No hepatosplenomegaly present AUSCULTATION: Yes normoactive bowel sounds PALPATION: Yes Tenderness to palpation present (GI) (Periumbilical), No Guarding due to palpation present (GI) and Yes No hepatosplenomegaly present Extremity: COMMON NORMALS: normal to inspection, capillary refill normal, no clubbing, cyanosis or edema, no calf tenderness and no pedal edema Neuro: SENSORIUM/ORIENTATION: Yes oriented to person, Yes oriented to place and Yes oriented to time Skin: COMMON NORMALS: no rashes or lesions noted GENERAL SKIN EXAM: no rashes or lesions noted Course Vital Signs: Vital signs: Vital Signs Temperature 98.3 F 05/05/23 06:40 Pulse Rate 74 05/05/23 06:40 Respiratory Rate 14 05/05/23 07:17 Blood Pressure 150/99 05/05/23 06:40 Pulse Oximetry 95 05/05/23 07:17 Oxygen Delivery Me thod Room Air 05/05/23 06:40 MDM - Abdominal Pain Medical Decision Making Patient still has tenderness on the incisional hernia but there is no evidence of obstruction x-ray of the abdomen did not show acute bowel obstruction exam is not indicative of obstruction he does not have an acute abdomen no peritoneal signs laboratory studies reviewed discussed with the patient continues tramadol he is improved after morphine and fluids here. Follow-up with Dr. Worrell's office return if has further problems. Medical Records I reviewed the patient's medical records. Lab Data I reviewed the patient's lab results. 05/05/23 06:40 05/05/23 06:40 Labs/Radiology: Radiology Impressions Chest/Abdomen X-ray 05/05/23 06:53 IMPRESSION: No acute findings. Laboratory Results WBC 9.1 10^3/uL (4.0-10.0) 05/05/23 06:40 RBC 5.47 10^6/uL (4.1-5.3) H 05/05/23 06:40 Hgb 17.5 g/dL (11.7-16.6) H 05/05/23 06:40 Hct 51.4 % (42.0-52.0) 05/05/23 06:40 MCV 94.0 fl (80-94) 05/05/23 06:40 MCH 32.0 pg (28.0-34.0) 05/05/23 06:40 MCHC 34.0 g/dL (30.0-36.0) 05/05/23 06:40 RDW 12.7 % (12.1-15.1) 05/05/23 06:40 Plt Count 308 10^3/cmm (130-400) 05/05/23 06:40 MPV 9.7 fL (7.4-10.4) 05/05/23 06:40 Neut % (Auto) 48.2 % 05/05/23 06:40 Lymph % (Auto) 34.9 % 05/05/23 06:40 [place] % (Auto) 11.8 % 05/05/23 06:40 Eos % (Auto) 3.7 % 05/05/23 06:40 Baso % (Auto) 0.5 % 05/05/23 06:40 Neut # (Auto) 4.39 10^3/uL (1.8-7.7) 05/05/23 06:40 Lymph # (Auto) 3.2 10^3/uL (0.8-4.8) 05/05/23 06:40 [place] # (Auto) 1.1 10^3/uL (0.2-0.9) H 05/05/23 06:40 Eos # (Auto) 0.3 10^3/uL (0.0-0.8) 05/05/23 06:40 Baso # (Auto) 0.1 10^3/uL (0.0-0.1) 05/05/23 06:40 Nucleated RBC % (auto) 0 % 05/05/23 06:40 Nucleated RBCs # 0.0 /100WBC 05/05/23 06:40 Sodium 136 mmol/L (136-145) 05/05/23 06:40 Potassium 4.5 mmol/L (3.5-5.1) 05/05/23 06:40 Chloride 100 mmol/L (98-107) 05/05/23 06:40 Carbon Dioxide 24 mmol/L (22-29) 05/05/23 06:40 Anion Gap 16.5 (5-19) 05/05/23 06:40 BUN 8 mg/dL (6-20) 05/05/23 06:40 Creatinine 1.0 mg/dL (0.7-1.2) 05/05/23 06:40 GFR Calculation 81.6 mL/min (90-130) L 05/05/23 06:40 Glucose 110 mg/dL (65-115) 05/05/23 06:40 Calculated Osmolality 281 mOsm/kg (285-295) L 05/05/23 06:40 Lactic Acid 1.2 mmol/L (0.5-2.2) 05/05/23 06:40 Calcium 9.3 mg/dL (8.5-10.5) 05/05/23 06:40 Total Bilirubin 0.4 mg/dL (0.15-1.2) 05/05/23 06:40 AST 25 U/L (0-40) 05/05/23 06:40 ALT 49 U/L (0-41) H 05/05/23 06:40 Alkaline Phosphatase 65 U/L (40-130) 05/05/23 06:40 Total Protein 7.3 g/dL (6.6-8.7) 05/05/23 06:40 Albumin 4.4 g/dL (3.5-5.2) 05/05/23 06:40 Globulin 2.9 g/dL (1.3-4.6) 05/05/23 06:40 Lipase 53 U/L (13-60) 05/05/23 06:40 Discharge Plan Discharge Patient Disposition: Home Clinical Impression: Recurrent incisional hernia Condition: Stable Prescriptions: No Action ergocalciferol (vitamin D2) 1,250 mcg (50,000 unit) capsule 1,250 mcg PO Q7D Qty: 12 0RF Rx Instructions: on lisinopril 20 mg tablet 20 mg PO BID Qty: 60 2RF pantoprazole 40 mg tablet,delayed release (DR/EC) 40 mg PO BID 30 Days Qty: 60 1RF triamterene-hydrochlorothiazid 37.5-25 mg tablet 1 tab PO QAM PRN (Reason: Edema) Qty: 30 2RF tramadol 50 mg tablet 50 mg PO TID PRN (Reason: pain) Qty: 90 0RF ibuprofen 200 mg Capsule 800 mg PO Q8H PRN (Reason: Pain) Discharge Orders: Discharge ED (Routine); Ordered 05/05/23 Ordered By: Colt Amaya Referrals: Leatha Cifuentes FNP [Primary Care Provider] - Patient Instructions: Opioid Safety, Pain Management Activity Restrictions/Additional Instructions: You were seen today for your incarcerated umbilical hernia. There is no sign of bowel obstruction at this time. Recommended that you continues to tramadol you recently were prescribed for pain avoid any heavy lifting bending or straining. Contact Dr. Worrell's office if you have further problems. Coding Level of Care Code ED Contract Attorney for Janeth Sanchez
[2023-05-05 06:50] LABS: Basophils # 0.1 10^3/uL (0.0-0.1); Basophils % 0.5 %; Eosinophils # 0.3 10^3/uL (0.0-0.8); Eosinophils % 3.7 %; Hematocrit 51.4 % (42.0-52.0); Hemoglobin 17.5 g/dL (11.7-16.6); Lymphocytes # 3.2 10^3/uL (0.8-4.8); Lymphocytes % 34.9 %; Mean Platelet Volume 9.7 fL (7.4-10.4); Monocytes # 1.1 10^3/uL (0.2-0.9); Monocytes % 11.8 %; Neutrophils # 4.39 10^3/uL (1.8-7.7); Neutrophils % 48.2 %; Nucleated Red Blood Cells % 0 %; Platelet Count 308 10^3/cmm (130-400); Red Blood Count 5.47 10^6/uL (4.1-5.3); Red Cell Distribution Width 12.7 % (12.1-15.1); White Blood Count 9.1 10^3/uL (4.0-10.0)
--- NOTE | 2023-05-05 06:52 | PC.NURSE ---
Received report from Meño SHELTON. Assuming care for patient at this time.
--- NOTE | 2023-05-05 06:53 | XRR_ITS ---
PROCEDURE INFORMATION: Exam: XR Complete Acute Abdomen Series Including Chest Exam date and time: 05/05/2023 7:05 AM Age: 43 years old Clinical indication: Abdominal pain; Generalized; Additional info: Abd pain TECHNIQUE: Imaging protocol: Radiologic exam. Complete acute abdomen series, including 2 or more views of the abdomen and a single view chest. COMPARISON: CT abdomen pelvis w con* [id number] 04/17/2023 5:59 PM FINDINGS: Lungs: Normal. No consolidation. Pleural spaces: Normal. No pleural effusions. No pneumothorax. Heart/Mediastinum: Normal. No cardiomegaly. Gastrointestinal tract: Normal. No bowel dilation. Intraperitoneal space: Normal. No free air. Organs: Cholecystectomy clips. Bones/joints: Normal. No acute fracture. Soft tissues: Normal. XR/XR acute abdomen series [id number] IMPRESSION: No acute findings.
[2023-05-05 07:06] LABS: Alanine Aminotransferase 49 U/L (0-41); Albumin Level 4.4 g/dL (3.5-5.2); Alkaline Phosphatase 65 U/L (40-130); Anion Gap 16.5 (5-19); Aspartate Amino Transferase 25 U/L (0-40); Blood Urea Nitrogen 8 mg/dL (6-20); Calcium 9.3 mg/dL (8.5-10.5); Carbon Dioxide 24 mmol/L (22-29); Chloride 100 mmol/L (98-107); Globulin 2.9 g/dL (1.3-4.6); Glomerular Filtration Rate 81.6 mL/min (90-130); Glucose 110 mg/dL (65-115); Lipase 53 U/L (13-60); Osmolality Calculated 281 mOsm/kg (285-295); Potassium 4.5 mmol/L (3.5-5.1); Sodium 136 mmol/L (136-145); Total Bilirubin 0.4 mg/dL (0.15-1.2); Total Protein 7.3 g/dL (6.6-8.7)
[2023-05-05 07:14] LABS: Lactic Sepsis W/Reflex 1.2 mmol/L (0.5-2.2)
[2023-05-05 07:17] VITALS: RESP 14; O2SAT 95
[2023-05-05] MEDS: sodium chloride 0.9% 1,000 ML 999 ML IV (07:17)
[2023-05-05] MEDS: morphine 4 mg/mL SDV 1 mL IVP (07:17)
[2023-05-05] MEDS: ondansetron 2 mg/ML SDV 2 mL 4 MG IVP (07:17)
== END 2023-05-05 08:39 | disposition home or self-care (01) ==
PROVIDERS: Emergency Provider Family Medicine; PCP Nurse Practitioner Family
DX: K43.2 Incisional hernia without obstruction or gangrene (principal)
CPT/HCPCS: 74022; 80053; 83605; 83690; 85025; 96361; 96374; 96375; 99284; J2270; J2405; J7030

== ENCOUNTER 2023-05-11 06:26 | Day surgery (SDC) | payer MEDICARE, MEDICAID, SELFPAY ==
[2023-05-08 11:27] VITALS: BMI 51.1
[2023-05-11] VITALS (13 sets, daily range): BP systolic 90–176; BP diastolic 45–98; PULSE 57–72; RESP 16–18; TEMP 36.2–36.6; O2SAT 94–100
--- NOTE | 2023-05-11 07:18 | ANES.PREANE2 ---
Pre-Anesthetic Assessment Height/Weight: Height 1.93 m Weight 190.509 kg Temp Pulse Resp BP Pulse Ox O2 Del Method 97.8 F 72 18 176/98 95 Room Air 05/11/23 06:42 05/11/23 06:42 05/11/23 06:42 05/11/23 06:42 05/11/23 06:42 05/11/23 06:46 Operation Date: 05/11/23 08:00 Proposed Procedures p : 65946 lap recurrent incisional hernia repair with mesh K43.(Not Applicable) - Nile Worrell DO Familial anesthetic complications: none Was Beta Oswaldo taken within 24 hours: N/A Was Clonidine taken within 24 hours: N/A Last intake: Intake Last Liquid Date 05/10/23 Last Liquid Time 22:00 Last Solid Date 05/10/23 Last Solid Time 18:00 Social Tobacco and No alcohol Exam alert, oriented x 3 and regular rate & rhythm Airway Submandibular: within normal limits Cervical ROM: within normal limits Mallampati: Class II Dentition: chipped Pulmonary Chronic Obstructive Pulmonary Disease CV/HEM Hypertension GI Gastroesophageal Reflux Disease Metabolic Morbid Obesity Musc/skel Lower Back Pain and Osteoarthritis/DJD Anesthetic Plan ASA status: 3 Anesthesia: General Medications/Allergies Home Medications Medication Instructions Recorded Confirmed Last Taken Type ibuprofen 200 mg capsule 800 mg PO Q8H PRN Pain 03/10/23 05/11/23 05/09/23 History ergocalciferol (vitamin D2) 1,250 1,250 mcg PO Q7D #12 caps 03/27/23 05/08/23 05/08/23 Rx mcg (50,000 unit) capsule lisinopril 20 mg tablet 20 mg PO BID #60 tabs 03/27/23 05/11/23 05/10/23 22:00 Rx pantoprazole 40 mg tablet,delayed 40 mg PO BID 30 days #60 tabs 03/27/23 05/11/23 05/10/23 22:00 Rx release triamterene 37.5 1 tab PO QAM PRN Edema #30 tabs 03/27/23 05/11/23 05/09/23 Rx mg-hydrochlorothiazide 25 mg tablet tramadol 50 mg tablet 50 mg PO TID PRN pain #90 tabs 04/24/23 05/11/23 05/09/23 Rx Allergies Allergy/AdvReac Type Severity Reaction Status Date / Time No Known Allergies Allergy Verified 05/11/23 06:38 [facility] Anesthesia Medical History Peripheral edema Vitamin D deficiency Surgical History History of laparoscopic appendectomy History of laparoscopic cholecystectomy History of umbilical hernia repair Social History Smoking and tobacco status: current every day smoker (6-8 cigarettes/day) cigarettes Packs smoked per day: 0.50 Years cigarettes smoked: 20 Alcohol intake: current Alcohol intake frequency: holidays/special occasions only Alcohol type: beer Substance/Drug Use: never Lives independently: Yes Marital status: service: No Current occupational status: disabled Current gender identity: Male Special judi needs: No Agree to transfusion: Yes Data Anesthesia Cardiac Studies: No Data to Display
[2023-05-11] MEDS: sodium chloride 0.9% 1,000 ML 30 ML IV (07:34)
--- NOTE | 2023-05-11 08:46 | PM.HP ---
Providers/Chief Complaint Primary Care Provider: MAYI Champion Chief Complaint: K43.2 History of Present Illness Michi Rain is a 43 year old male comes to see me for repair of a recurrent incisional hernia. Hernia measures 1.[address] Medications/Allergies Home Medications Medication Instructions Recorded Confirmed Last Taken Type ibuprofen 200 mg capsule 800 mg PO Q8H PRN Pain 03/10/23 05/11/23 05/09/23 History ergocalciferol (vitamin D2) 1,250 1,250 mcg PO Q7D #12 caps 03/27/23 05/08/23 05/08/23 Rx mcg (50,000 unit) capsule lisinopril 20 mg tablet 20 mg PO BID #60 tabs 03/27/23 05/11/23 05/10/23 22:00 Rx pantoprazole 40 mg tablet,delayed 40 mg PO BID 30 days #60 tabs 03/27/23 05/11/23 05/10/23 22:00 Rx release triamterene 37.5 1 tab PO QAM PRN Edema #30 tabs 03/27/23 05/11/23 05/09/23 Rx mg-hydrochlorothiazide 25 mg tablet tramadol 50 mg tablet 50 mg PO TID PRN pain #90 tabs 04/24/23 05/11/23 05/09/23 Rx Allergies Allergy/AdvReac Type Severity Reaction Status Date / Time No Known Allergies Allergy Verified 05/11/23 06:38 PFSH Acute PFSH: Medical History Peripheral edema Vitamin D deficiency Surgical History History of laparoscopic appendectomy History of laparoscopic cholecystectomy History of umbilical hernia repair Social History Smoking and tobacco status: current every day smoker (6-8 cigarettes/day) cigarettes Packs smoked per day: 0.50 Years cigarettes smoked: 20 Alcohol intake: current Alcohol intake frequency: holidays/special occasions only Alcohol type: beer Substance/Drug Use: never Lives independently: Yes Marital status: service: No Current occupational status: disabled Current gender identity: Male Special judi needs: No Agree to transfusion: Yes Vitals/I&O/Wt Last Vital Signs Temp 97.8 F 05/11/23 06:42 Pulse 72 05/11/23 06:42 Resp 18 05/11/23 06:42 BP 176/98 05/11/23 06:42 Pulse Ox 95 05/11/23 06:42 O2 Del Method Room Air 05/11/23 06:46 A&P Assessment and plan (1) Recurrent incisional hernia: Plan Repair of recurrent incisional hernia with mesh Risks and benefits were explained and understood Attestations Medical Necessity Statement*: HOME Coding Level of Care Code Acute Code for Chg Fwd Diagnoses Recurrent incisional hernia K43.2
[2023-05-11] MEDS: ceFAZolin 3,000 MG in sodium chloride 0.9% (100 ml) 100 ML 200 MG IV (08:55)
[2023-05-11] MEDS: lidocaine-epi 2% 20 mL INJ INJECTION (09:23)
[2023-05-11] MEDS: fentaNYL 50 mcg/mL INJ 2mL IVP ×2 (10:15→10:30)
[2023-05-11] MEDS: HYDROcodone-acetaminophen 5-325 mg Tablet 1 TAB PO (11:13)
--- NOTE | 2023-05-11 12:06 | P.OP_ITS ---
Operative Report Date of procedure: May 26, 2023 Pre-op diagnosis: Recurrent incisional hernia Post-op diagnosis: same Procedure done: Laparoscopic repair of recurrent incisional hernia with mesh Implants: 11 cm round Ventralight mesh Specimens removed/disposition: Hernia sac Surgeon: Dr. Nile Worrell DO Anesthesia: General Estimated blood loss (mL): 5 Complications: None apparent Brief History: This is a very pleasant 43-year-old gentleman who presented to my office with a reducible recurrent incisional hernia. Laparoscopic repair with mesh was indicated. The risk and benefits were explained and documented. Procedure: Patient was wheeled into the operative room and placed on the OR table in a supine position. Abdomen was inspected prepped and draped in usual sterile fashion. Time-out was performed and all present were in agreement. A 15 blade scalp was used to make a 5 millimeter incision left upper quadrant. A Veress needle was placed into the incision and intra-abdominal insufflation was brought to 15 millimeters of mercury. A 12 millimeter trocar was placed into the left lower quadrant. The energy but device was then used to cut out the hernia sac. Hernia defect measured 1.5 cm in diameter. An 11 cm ventralight mesh was placed into the abdomen and brought up through the umbilicus using an the Anival- Alvaro. The mesh was then tacked in place in a double crown fashion. The skeleton of the mesh was removed via the left lower quadrant. The hernia sac was then removed from the abdomen via the left lower quadrant. The left lower quadrant port site was closed with an 0 Vicryl suture in a Anival-Alvaro in a [id number] fashion. Incisions were closed with 4-0 Monocryl in a subcuticular interrupted fashion. Skin glue was applied. Patient tolerated the procedure well.
--- NOTE | 2023-05-11 13:47 | ANE.PACU2 ---
Inpatient post-anesthesia follow up: Airway intact: Yes Vital signs: Temperature 97.2 F Pulse Rate 62 Respiratory Rate 17 Blood Pressure 114/73 Pulse Oximetry 95 Oxygen Delivery Me thod Room Air Oxygen Flow Rate 6 Fraction of Inspir ed Oxygen Hydration adequate: Yes Nausea and vomiting: No Pain level: 3 Mental status: Baseline
== END 2023-05-11 11:38 | disposition home or self-care (01) ==
PROVIDERS: PCP Nurse Practitioner Family; Visit Provider Surgery
PROC: 0WQF4ZZ Repair Abdominal Wall, Percutaneous Endoscopic Approach (ICD-10-PCS; CPT 49613; principal; 2023-05-11 07:50)
DX: K43.2 Incisional hernia without obstruction or gangrene (principal); J44.9 Chronic obstructive pulmonary disease, unspecified; I10 Essential (primary) hypertension; K21.9 Gastro-esophageal reflux disease without esophagitis; E66.01 Morbid (severe) obesity due to excess calories; Z68.43 Body mass index [BMI] 50.0-59.9, adult; F17.210 Nicotine dependence, cigarettes, uncomplicated
CPT/HCPCS: 49613; C1781; J0131; J0330; J0690; J1100; J1885; J2405; J2704; J3010; J3490; J7030

== ENCOUNTER 2023-05-24 04:35 | Emergency (ER) | payer MEDICARE, MEDICAID, SELFPAY ==
[2023-05-24 04:35] VITALS: BP 109/83; PULSE 89; RESP 24; TEMP 36.8; O2SAT 94; BMI 48.6
--- NOTE | 2023-05-24 04:55 | XRR_ITS ---
PROCEDURE INFORMATION: Exam: XR Right Foot Exam date and time: 05/24/2023 5:05 AM Age: 43 years old Clinical indication: Right; Patient HX: C/O worsening RT foot pain with swelling. No injury. History of peripheral edema. ; Additional info: R foot pain TECHNIQUE: Imaging protocol: Radiologic exam of the right foot. Views: Frontal, lateral, and oblique, 3 views. COMPARISON: No relevant prior studies available. FINDINGS: Bones/joints: Anterior and posterior tibial marginal hypertrophy at the tibiotalar articulation. A cornuate navicular is present, a sometimes symptomatic normal variant. An os trigonum is present, a sometimes symptomatic normal variant. No acute bony abnormality identified. Soft tissues: No ectopic gas. No foreign body. XR/XR foot RT min 3V* [id number] IMPRESSION: 1. Tibiotalar primary osteoarthritis. 2. No acute bony abnormality identified.
--- NOTE | 2023-05-24 04:55 | USR_ITS ---
PROCEDURE INFORMATION: Exam: US Duplex Right Lower Extremity Veins, Limited Exam date and time: 05/24/2023 5:41 AM Age: 43 years old Clinical indication: Pain; Leg, lower; Right; Additional info: R leg pain and swelling TECHNIQUE: Imaging protocol: Real-time duplex ultrasound of the right extremity with 2-D lemons scale, color Doppler flow and spectral waveform analysis including responses to compression and other maneuvers (when performed) with image documentation. Limited exam was focused on the right lower extremity veins. COMPARISON: CT abdomen pelvis w con* [id number] 04/17/2023 5:59 PM FINDINGS: Right deep veins: Unremarkable. The common femoral, femoral, proximal profunda femoral and popliteal veins are patent without thrombus. Normal Doppler waveforms. Normal compressibility and augmentation response. Right superficial veins: Unremarkable. Saphenofemoral junction is patent without thrombus. Soft tissues: Unremarkable. US/[place] [id number] IMPRESSION: No evidence of deep vein thrombosis.
[2023-05-24 05:02] LABS: Basophils # 0.1 10^3/uL (0.0-0.1); Basophils % 0.6 %; Eosinophils # 0.2 10^3/uL (0.0-0.8); Eosinophils % 1.7 %; Hematocrit 47.8 % (42.0-52.0); Lymphocytes # 2.8 10^3/uL (0.8-4.8); Lymphocytes % 25.1 %; Mean Corpuscular HGB Conc 33.5 g/dL (30.0-36.0); Mean Corpuscular Hemoglobin 31.5 pg (28.0-34.0); Mean Corpuscular Volume 94.1 fl (80-94); Mean Platelet Volume 9.9 fL (7.4-10.4); Monocytes # 1.4 10^3/uL (0.2-0.9); Monocytes % 12.8 %; Neutrophils # 6.54 10^3/uL (1.8-7.7); Nucleated Red Blood Cells % 0 %; Platelet Count 483 10^3/cmm (130-400); Red Blood Count 5.08 10^6/uL (4.1-5.3); Red Cell Distribution Width 12.2 % (12.1-15.1); White Blood Count 11.1 10^3/uL (4.0-10.0)
[2023-05-24] MEDS: ketorolac 30 mg/mL INJ IVP (05:06)
--- NOTE | 2023-05-24 05:12 | W.ED.EXTPRO ---
Documented by User: Ezekiel Anne DO 05/26/23 19:34 HPI - Extremity Problem General: Chief complaint: Extremity Problem,Nontraumatic Stated complaint: RT foot/ Leg pain Time Seen by Provider: 05/24/23 04:47 Source: patient History of Present Illness: 43-year-old male with a recent history of hernia repair. He presents with right foot and right leg pain for the last 6-7 days. Is been worsening. Evidently, the pain was too much for him this morning, as he called an ambulance. He says the pain started in his great toe, and has increased in intensity. He denies any injury. No fever. MD Complaint: extremity pain, extremity swelling, joint swelling and joint pain Onset (ago): day(s) Pain Consistency: intermittent Location: right, lower extremity, knee and toe Quality: stabbing and aching Radiation: proximal Relieving factors: nothing Exacerbating factors: weight bearing Associated symptoms: Deny chest pain or fever(s) Review of Systems Const: Denies: fever(s) Eyes: Denies: change in vision Card: Denies: chest pain or palpitations Resp: Denies: dyspnea GI: Reports: abdominal pain (Postoperatively); Denies: nausea or vomiting Skin/Breast: Reports: erythema PFSH ED PFSH: Medical History Peripheral edema Vitamin D deficiency Surgical History History of laparoscopic appendectomy History of laparoscopic cholecystectomy History of umbilical hernia repair Social History Smoking and tobacco status: former smoker (6-8 cigarettes/day) Quit status (tobacco): has quit using tobacco Year quit tobacco: 04/2023 Alcohol intake: current Alcohol intake frequency: holidays/special occasions only Alcohol type: beer Substance/Drug Use: never Lives independently: Yes Marital status: service: No Current occupational status: disabled Current gender identity: Male Special judi needs: No Agree to transfusion: Yes Physical Exam Const: COMMON NORMALS: no acute distress GENERAL APPEARANCE: cooperative; not ill appearing and not frail appearing HENMT: COMMON NORMALS: normocephalic, atraumatic and Normal external nose present HEAD & SCALP: normocephalic and atraumatic FACE & SINUS: normal facial exam and face symmetric NOSE: Normal external nose present Eye: COMMON NORMALS: Equal, round and reactive pupils present and EOMs intact bilaterally PUPIL: Yes Equal, round and reactive pupils present Neck/C-Spine: GENERAL: Yes trachea midline Chest: CHEST: Yes Symmetrical chest wall rise Resp: COMMON NORMALS: normal respiratory effort, No retractions, No use of accessory muscles and clear to auscultation bilaterally AUSCULTATION: clear to auscultation bilaterally Cardio: COMMON NORMALS: regular rate and regular rhythm RATE: regular rate RHYTHM: regular rhythm GI: COMMON NORMALS: Normal to inspection, nondistended, normoactive bowel sounds present Extremity: COMMON NORMALS: no pedal edema NARRATIVE EXTREMITY EXAM: Exam of the right lower extremity reveals tenderness over the first MTP. There is tenderness over the ankle joint line as well. There are some mild calf tenderness. No pitting edema. Neurovascularly intact. Neuro: TIO COMA SCALE: document GCS findings [place] coma scale eye opening: Spontaneous Tio coma scale verbal response: Orientated [place] coma scale motor response: Obey commands [place] coma scale total score: 15 SENSORY EXAM: Yes extremities (intact) Psych: COMMON NORMALS: speech normal SPEECH: Yes normal speech Skin: COMMON NORMALS: no rashes or lesions noted GENERAL SKIN EXAM: no rashes or lesions noted Course Vital Signs: Vital signs: Vital Signs Temperature 98.2 F 05/24/23 04:35 Pulse Rate 79 05/24/23 05:40 Respiratory Rate 18 05/24/23 05:40 Blood Pressure 106/76 05/24/23 05:40 Pulse Oximetry 94 05/24/23 05:40 Oxygen Delivery Me thod Room Air 05/24/23 04:35 MDM - Extremity (Nontraumatic) Medical Decision Making White blood cell count is 11. Platelet count is increased. The patient recently had surgery though. Other labs are pending. X-ray does not reveal significant abnormality. There is some soft tissue swelling over the first MTP joint. Uric acid is high. CRP is high. will treat for acute gout. Return for worsening symptoms despite treatment. Lab Data 05/24/23 04:47 05/24/23 04:47 Radiology Impressions Foot X-Ray 05/24/23 04:55 IMPRESSION: 1. Tibiotalar primary osteoarthritis. 2. No acute bony abnormality identified. Venous Duplex 05/24/23 04:55 IMPRESSION: No evidence of deep vein thrombosis. Laboratory Results WBC 11.1 10^3/uL (4.0-10.0) H 05/24/23 04:47 RBC 5.08 10^6/uL (4.1-5.3) 05/24/23 04:47 Hgb 16.0 g/dL (11.7-16.6) 05/24/23 04:47 Hct 47.8 % (42.0-52.0) 05/24/23 04:47 MCV 94.1 fl (80-94) H 05/24/23 04:47 MCH 31.5 pg (28.0-34.0) 05/24/23 04:47 MCHC 33.5 g/dL (30.0-36.0) 05/24/23 04:47 RDW 12.2 % (12.1-15.1) 05/24/23 04:47 Plt Count 483 10^3/cmm (130-400) H 05/24/23 04:47 MPV 9.9 fL (7.4-10.4) 05/24/23 04:47 Neut % (Auto) 59.0 % 05/24/23 04:47 Lymph % (Auto) 25.1 % 05/24/23 04:47 Callahan % (Auto) 12.8 % 05/24/23 04:47 Eos % (Auto) 1.7 % 05/24/23 04:47 Baso % (Auto) 0.6 % 05/24/23 04:47 Neut # (Auto) 6.54 10^3/uL (1.8-7.7) 05/24/23 04:47 Lymph # (Auto) 2.8 10^3/uL (0.8-4.8) 05/24/23 04:47 Callahan # (Auto) 1.4 10^3/uL (0.2-0.9) H 05/24/23 04:47 Eos # (Auto) 0.2 10^3/uL (0.0-0.8) 05/24/23 04:47 Baso # (Auto) 0.1 10^3/uL (0.0-0.1) 05/24/23 04:47 Nucleated RBC % (auto) 0 % 05/24/23 04:47 Nucleated RBCs # 0.0 /100WBC 05/24/23 04:47 ESR 46 mm/hr (0-10) H 05/24/23 04:47 Sodium 135 mmol/L (136-145) L 05/24/23 04:47 Potassium 4.2 mmol/L (3.5-5.1) 05/24/23 04:47 Chloride 98 mmol/L (98-107) 05/24/23 04:47 Carbon Dioxide 23 mmol/L (22-29) 05/24/23 04:47 Anion Gap 18.2 (5-19) 05/24/23 04:47 BUN 7 mg/dL (6-20) 05/24/23 04:47 Creatinine 1.1 mg/dL (0.7-1.2) 05/24/23 04:47 GFR Calculation 73.1 mL/min (90-130) L 05/24/23 04:47 Glucose 114 mg/dL (65-115) 05/24/23 04:47 Calculated Osmolality 279 mOsm/kg (285-295) L 05/24/23 04:47 Uric Acid 8.0 mg/dL (3.4-7.0) H 05/24/23 04:47 Calcium 9.6 mg/dL (8.5-10.5) 05/24/23 04:47 Total Bilirubin 0.4 mg/dL (0.15-1.2) 05/24/23 04:47 AST 32 U/L (0-40) 05/24/23 04:47 ALT 55 U/L (0-41) H 05/24/23 04:47 Alkaline Phosphatase 90 U/L (40-130) 05/24/23 04:47 C-Reactive Protein 54.4 mg/L (0.0-4.9) H 05/24/23 04:47 Total Protein 7.7 g/dL (6.6-8.7) 05/24/23 04:47 Albumin 3.8 g/dL (3.5-5.2) 05/24/23 04:47 Globulin 3.9 g/dL (1.3-4.6) 05/24/23 04:47 Discharge Plan Discharge Patient Disposition: Home Clinical Impression: Gout Qualifiers: Gout site: foot Encounter type: initial encounter Chronicity: acute Laterality: right Condition: Stable Prescriptions: New colchicine 0.6 mg capsule 0.6 mg PO DAILY Qty: 20 0RF No Action methylprednisolone [Medrol (Al)] 4 mg tablets,dose pack See Rx Instructions PO PER PKG DIR Qty: 21 0RF Rx Instructions: PO PER PKG DIR ergocalciferol (vitamin D2) 1,250 mcg (50,000 unit) capsule 1,250 mcg PO Q7D Qty: 12 0RF Rx Instructions: on lisinopril 20 mg tablet 20 mg PO BID Qty: 60 2RF triamterene-hydrochlorothiazid 37.5-25 mg tablet 1 tab PO QAM PRN (Reason: Edema) Qty: 30 2RF tramadol 50 mg tablet 50 mg PO TID PRN (Reason: pain) Qty: 90 0RF Hold Instructions: Resume on 05/16/23. pantoprazole 40 mg tablet,delayed release (DR/EC) See Rx Instructions .ROUTE .COMPLEX Qty: 60 0RF Dose Instruction: TAKE ONE TABLET BY MOUTH TWICE DAILY FOR 30 DAYS Rx Instructions: TAKE ONE TABLET BY MOUTH TWICE DAILY FOR 30 DAYS ibuprofen 200 mg Capsule 800 mg PO Q8H PRN (Reason: Pain) Hold Instructions: Resume on 05/13/23. DOK 100 mg capsule 100 mg PO BID Qty: 14 0RF Discharge Orders: Discharge ED (Routine); Ordered 05/24/23 Ordered By: Ezekiel Anne Referrals: Leatha Cifuentes FNP [Primary Care Provider] - 1-3 days Patient Instructions: Gout (ED), Opioid Safety, Pain Management Activity Restrictions/Additional Instructions: Take the medication you were prescribed 4 times daily for 2 days, then 3 times daily for 2 days, then twice daily as prescribed. Ice the leg and foot. Elevate. Return for fever greater than 100, chest discomfort or shortness of breath. Coding Level of Care Code ED Anode Builder for Janeth Sanchez Documented by User: Colt Amaya DO 05/24/23 07:59 HPI - Extremity Problem General: Chief complaint: Extremity Problem,Nontraumatic Stated complaint: RT foot/ Leg pain Time Seen by Provider: 05/24/23 04:47 PFSH ED PFSH: Medical History Peripheral edema Vitamin D deficiency Surgical History History of laparoscopic appendectomy History of laparoscopic cholecystectomy History of umbilical hernia repair Social History Smoking and tobacco status: former smoker (6-8 cigarettes/day) Quit status (tobacco): has quit using tobacco Year quit tobacco: 04/2023 Alcohol intake: current Alcohol intake frequency: holidays/special occasions only Alcohol type: beer Substance/Drug Use: never Lives independently: Yes Marital status: service: No Current occupational status: disabled Current gender identity: Male Special judi needs: No Agree to transfusion: Yes Physical Exam Neuro: TIO COMA SCALE: document GCS findings [place] coma scale total score: 15 Course Vital Signs: Vital signs: Vital Signs Temperature 98.2 F 05/24/23 04:35 Pulse Rate 79 05/24/23 05:40 Respiratory Rate 18 05/24/23 05:40 Blood Pressure 106/76 05/24/23 05:40 Pulse Oximetry 94 05/24/23 05:40 Oxygen Delivery Me thod Room Air 05/24/23 04:35 MDM - Extremity (Nontraumatic) Lab Data 05/24/23 04:47 05/24/23 04:47 Radiology Impressions Foot X-Ray 05/24/23 04:55 IMPRESSION: 1. Tibiotalar primary osteoarthritis. 2. No acute bony abnormality identified. Venous Duplex 05/24/23 04:55
[2023-05-24 05:24] LABS: Alanine Aminotransferase 55 U/L (0-41); Albumin Level 3.8 g/dL (3.5-5.2); Alkaline Phosphatase 90 U/L (40-130); Anion Gap 18.2 (5-19); Aspartate Amino Transferase 32 U/L (0-40); Blood Urea Nitrogen 7 mg/dL (6-20); C Reactive Protein 54.4 mg/L (0.0-4.9); Calcium 9.6 mg/dL (8.5-10.5); Carbon Dioxide 23 mmol/L (22-29); Chloride 98 mmol/L (98-107); Creatinine Clr Calc Pharmacy 152.6707; Globulin 3.9 g/dL (1.3-4.6); Glomerular Filtration Rate 73.1 mL/min (90-130); Glucose 114 mg/dL (65-115); Osmolality Calculated 279 mOsm/kg (285-295); Potassium 4.2 mmol/L (3.5-5.1); Sodium 135 mmol/L (136-145); Total Bilirubin 0.4 mg/dL (0.15-1.2); Total Protein 7.7 g/dL (6.6-8.7)
[2023-05-24] MEDS: HYDROmorphone 1 mg/mL INJ 1 mL IVP (05:38)
[2023-05-24 05:40] VITALS: BP 106/76; PULSE 79; RESP 18; O2SAT 94
[2023-05-24 05:40] LABS: Erythrocyte Sedimentation Rate 46 mm/hr (0-10)
== END 2023-05-24 06:16 | disposition home or self-care (01) ==
PROVIDERS: Emergency Provider Emergency Medicine; PCP Nurse Practitioner Family
DX: M10.9 Gout, unspecified (principal); Z87.891 Personal history of nicotine dependence
CPT/HCPCS: 73630; 80053; 84550; 85025; 85651; 86140; 93971; 96374; 96375; 99285; J1170; J1885

== ENCOUNTER → 2023-10-12 18:04 | Outpatient (BNVA) | payer MEDICARE, MEDICAID, SELFPAY | PROVIDERS: PCP Nurse Practitioner Family; Visit Provider Nurse Practitioner Family | DX: I10 Essential (primary) hypertension (principal); E55.9 Vitamin D deficiency, unspecified; R73.9 Hyperglycemia, unspecified; K46.9 Unspecified abdominal hernia without obstruction or gangrene | CPT/HCPCS: 80053; 80061; 82306; 83036; 84443; 84550; 85025 ==

== ENCOUNTER 2023-10-15 14:50 | Outpatient (CLI) | payer MEDICARE, MEDICAID, SELFPAY ==
[2023-10-15] MEDS: iohexol 350 mg/mL 500 mL Btl (per mL) IV (15:10)
[2023-10-15] MEDS: iohexol 350 mg/mL 500 mL Btl (per mL) PO (15:10)
--- NOTE | 2023-10-15 16:00 | CT_ITS ---
WS: [id number] CT ABDOMEN PELVIS TECHNIQUE: Contrast-enhanced CT of the abdomen and pelvis with coronal and sagittal reformatted image s. CLINICAL INFORMATION: K46.9 - Unspecified abdominal hernia without obstruction ... COMPARISON: CT 04/17/2023 DLP: 1293.[address] scans at [facility] use at least one of these dose optimization techniques: automated e xposure control; mA and/or kV adjustment per patient size (includes targeted exams where dose is matc hed to clinical indication); or iterative reconstruction. FINDINGS: Reported history of prior hernia repair Fluid collection in the area of reported prior hernia repair compatible with seroma with a small amou nt of surrounding induration. Fluid collection measures approximately 6.3 x 9.5 x 7.8 cm. No herniate d bowel. Possible small recurrent hernia in this area containing omental fat with associated inflamma tory stranding and edema. Suggestion of a tiny narrow neck extends to the superficial aspect of the p resumed hernia mesh. This may represent postoperative change with fat necrosis rather than recurrent hernia. Follow-up CT abdomen pelvis may be helpful to assess change Lung bases are well aerated. Diffuse fatty filtration of the liver. Prior cholecystectomy. Normal por ger vein and splenic vein. Tiny esophageal hiatal hernia. Normal spleen. Adrenal glands are normal. Normal pancreas. Normal renal parenchymal enhancement. No h ydronephrosis. Small complex appearing RIGHT renal cystic lesion appears unchanged measuring 1.4 cm. This demonstrates some internal and peripheral enhancement. Recommend continued surveillance. Normal sigmoid colon. No evidence of high-grade small or large bowel obstruction. Disc base narrowing L4-L5 and L5-S1 with disc osteophyte complexes. IMPRESSION: 1. Fluid collection in the area of prior reported ventral abdominal hernia repair likely represents postoperative seroma described above 2. Possible small recurrent fat-containing hernia with a tiny narrow neck versus postoperative doe e/fat necrosis in the area of the hernia repair. Recommend interval follow-up CT abdomen pelvis to as sess for resolution and correlation with clinical symptoms 3. No herniated bowel 4. Diffuse fatty infiltration of the liver. 5. Prior cholecystectomy. 6. Tiny esophageal hiatal hernia. 7. Stable small peripheral enhancing 1.4 cm RIGHT renal lesion is technically indeterminant. This ma y present a complex cyst but too small to characterize. Recommend follow-up surveillance with contras t-enhanced CT abdomen pelvis in 6 to 12 months.
== END 2023-10-15 14:51 | disposition home or self-care (01) ==
LOC: RAD 14:50
PROVIDERS: PCP Nurse Practitioner Family; Visit Provider Nurse Practitioner Family
DX: K46.9 Unspecified abdominal hernia without obstruction or gangrene (principal); Z98.890 Other specified postprocedural states; K76.0 Fatty (change of) liver, not elsewhere classified; Z90.49 Acquired absence of other specified parts of digestive tract; K44.9 Diaphragmatic hernia without obstruction or gangrene; N28.89 Other specified disorders of kidney and ureter
CPT/HCPCS: 74177; Q9967

== ENCOUNTER → 2023-11-04 11:00 | Outpatient (BNVA) | payer MEDICARE, MEDICAID, SELFPAY | PROVIDERS: PCP Nurse Practitioner Family; Visit Provider Nurse Practitioner Family | DX: M10.9 Gout, unspecified (principal) | CPT/HCPCS: 84550 ==

== ENCOUNTER 2024-01-04 04:42 | Emergency (ER) | payer MEDICARE, MEDICAID, SELFPAY ==
[2024-01-04] VITALS (7 sets, daily range): BP systolic 164–176; BP diastolic 90–125; PULSE 52–66; RESP 11–18; TEMP 36.6; O2SAT 93–98; BMI 47.5
--- NOTE | 2024-01-04 05:26 | CTR_ITS ---
PROCEDURE INFORMATION: Exam: CT Abdomen And Pelvis With Contrast Exam date and time: 01/04/2024 5:42 AM Age: 43 years old Clinical indication: Abdominal pain; Prior surgery; Surgery date: 6+ months; Surgery type: Gb. Multiple hernia surgeries; Patient HX: C/O periumbilical pain. Palpable mass around umbilicus. ; Additional info: Periumbilical abd pain, HX hernia surgery. Palpable mass TECHNIQUE: Imaging protocol: Computed tomography of the abdomen and pelvis with contrast. Radiation optimization: All CT scans at this facility use at least one of these dose optimization techniques: automated exposure control; mA and/or kV adjustment per patient size (includes targeted exams where dose is matched to clinical indication); or iterative reconstruction. Contrast material: OMNI 350; Contrast volume: 125 ml; Contrast route: INTRAVENOUS (IV); COMPARISON: CT abdomen pelvis w con* [id number] 10/15/2023 3:45 PM RADIATION DOSE METRICS: Total DLP (mGy-cm): 1714.33 FINDINGS: Liver: Similar mild hepatomegaly. Similar mild diffuse hepatic steatosis; no focal liver lesion seen. Gallbladder and bile ducts: Cholecystectomy clips. Pancreas: Normal. No ductal dilation. Spleen: Normal. No splenomegaly. Adrenal glands: Normal. No mass. Kidneys and ureters: Re-identified right renal upper pole 6 mm hypodensity on series , too small to definitively characterize. Re-identified right upper pole 13 mm and right lower pole 13 mm exophytic cystic appearing structures are slightly hyperdense and therefore may represent complex cysts but are incompletely evaluated on this study. Consider dedicated renal ultrasound follow-up for further characterization. No urolithiasis. No urinary obstruction Stomach and bowel: Mild colonic diverticulosis without evidence of diverticulitis. Appendix: Appendix is not seen. Sutures at the cecum suggest appendectomy. Intraperitoneal space: Unremarkable. No free air. Vasculature: Unremarkable. No abdominal aortic aneurysm. Lymph nodes: Similar 7 mm short axis portacaval node. Urinary bladder: Fluid fluid level indicates possible debris settling dependently within the urinary bladder; clinically correlate Reproductive: Mild prostate enlargement. Bones/joints: Unremarkable. No acute fracture. Soft tissues: Diastasis rectus re-identified with presumed hernia repair mesh at the midline; grossly unchanged appearance of approximate 4 x 3 cm ovoid focus of mildly indurated fat which is situated external to and abutting the mesh; again this may represent a focus of fat necrosis versus recurrent ventral hernia containing inflamed mesenteric fat. Unchanged appearance and size of presumed well encapsulated seroma surrounding this fatty lesion; again this measures roughly 82 x 72 x 81 mm and has a dense surrounding capsule, with internally simple density fluid. Similar mild induration of the surrounding subcutaneous fat. No bowel loop herniation. CT/CT abdomen pelvis w con* [id number] IMPRESSION: 1. Unchanged appearance and size of midline ventral fluid collection surrounding fatty lesion at site of previous abdominal hernia repair, as detailed above. 2. Indeterminate subcentimeter right renal hypodensities could represent complex/proteinaceous cysts but are incompletely characterized. Consider dedicated renal ultrasound for further characterization. 3. Chronic/incidental findings as above Consistent with the [employer]'s Incidental Findings Committee white paper (J Am Nathalie Radiol 2018): Any incidental renal lesion less than 1 cm or classified as too small to characterize, or any incidental cystic renal lesion characterized as simple-appearing, is likely benign. No follow-up imaging is recommended for these lesions per consensus recommendations based on imaging criteria.
--- NOTE | 2024-01-04 05:27 | ED_ITS ---
Documented by User: Ezekiel nAne DO 01/04/24 19:40 HPI - Abdominal Pain 2 General: Chief Complaint: Abdominal Pain Stated Complaint: ABD PAIN Time Seen by Provider: 01/04/24 05:17 History of Present Illness: 43-year-old male with a history of 2 liam or periumbilical abdominal hernia surgeries. He presents with periumbilical pain, vomiting. He states he has been hurting for 3 days or so. He felt a tearing sensation in the same area prior to his pain coming back. His last surgery was a year or so ago. No fever. No diarrhea. Associated Symptoms: Reports nausea and vomiting; Denies chills, diarrhea and fever(s) Review of Systems 2 Const: Denies: fever(s) or chills ENMT: Denies: throat pain Card: Denies: chest pain Resp: Denies: dyspnea GI: Reports: abdominal pain, nausea and vomiting; Denies: diarrhea : Denies: flank pain PFSH ED 2 PFSH: Medical History Peripheral edema Vitamin D deficiency Surgical History History of laparoscopic appendectomy History of laparoscopic cholecystectomy History of umbilical hernia repair Social History Smoking and tobacco/nicotine status: former use of tobacco/nicotine (6-8 cigarettes/day) Quit status (tobacco/nicotine): has quit using Year quit tobacco: 04/2023 Alcohol intake: current Alcohol intake frequency: holidays/special occasions only Alcohol type: beer Substance/Drug Use: never Lives independently: Yes Marital status: service: No Current occupational status: disabled Current gender identity: Male Special judi needs: No Agree to transfusion: Yes Physical Exam 2 Const: COMMON NORMALS: no acute distress GENERAL APPEARANCE: cooperative NUTRITIONAL APPEARANCE: obese HENMT: COMMON NORMALS: normocephalic, atraumatic and Normal external nose present HEAD & SCALP: normocephalic and atraumatic FACE & SINUS: normal facial exam and face symmetric NOSE: Normal external nose present Eye: COMMON NORMALS: Equal, round and reactive pupils present and EOMs intact bilaterally PUPIL: Yes Equal, round and reactive pupils present Neck/C-Spine: GENERAL: Yes trachea midline Chest: CHEST: Yes Symmetrical chest wall rise Resp: COMMON NORMALS: normal respiratory effort, No retractions, No use of accessory muscles and clear to auscultation bilaterally AUSCULTATION: clear to auscultation bilaterally Cardio: COMMON NORMALS: regular rate and regular rhythm RATE: regular rate RHYTHM: regular rhythm GI: COMMON NORMALS: Normal to inspection, nondistended, normoactive bowel sounds present PALPATION: Yes Tenderness to palpation present (GI) (Periumbilical), Yes Guarding due to palpation present (GI) and Yes Palpable mass present (Periumbilical) Extremity: COMMON NORMALS: no pedal edema Neuro: TIO COMA SCALE: document GCS findings Gary coma scale eye opening: Spontaneous Gary coma scale verbal response: Orientated Gary coma scale motor response: Obey commands Gary coma scale total score: 15 S ENSORY EXAM: Yes extremities (intact) Psych: COMMON NORMALS: speech normal SPEECH: Yes normal speech Skin: COMMON NORMALS: no rashes or lesions noted GENERAL SKIN EXAM: no rashes or lesions noted Course 2 Vital Signs: Vital signs: Vital Signs Temperature 97.9 F 01/04/24 04:53 Pulse Rate 63 01/04/24 06:30 Respiratory Rate 14 01/04/24 06:30 Blood Pressure 167/125 01/04/24 06:30 Pulse Oximetry 96 01/04/24 06:30 Oxygen Delivery Me thod Room Air 01/04/24 05:21 MDM - Abdominal Pain Lab Data 01/04/24 05:16 01/04/24 05:16 Labs/Radiology: Radiology Impressions Abdomen/Pelvis CT 01/04/24 05:26 IMPRESSION: 1. Unchanged appearance and size of midline ventral fluid collection surrounding fatty lesion at site of previous abdominal hernia repair, as detailed above. 2. Indeterminate subcentimeter right renal hypodensities could represent complex/proteinaceous cysts but are incompletely characterized. Consider dedicated renal ultrasound for further characterization. 3. Chronic/incidental findings as above Consistent with the [employer]'s Incidental Findings Committee white paper (J Am Nathalie Radiol 2018): Any incidental renal lesion less than 1 cm or classified as too small to characterize, or any incidental cystic renal lesion characterized as simple-appearing, is likely benign. No follow-up imaging is recommended for these lesions per consensus recommendations based on imaging criteria. Laboratory Results WBC 8.28 10^3/uL (3.29-11.43) 01/04/24 05:16 RBC 5.26 10^6/uL (3.85-5.65) 01/04/24 05:16 Hgb 16.10 g/dL (11.27-16.99) 01/04/24 05:16 Hct 46.8 % (37-53) 01/04/24 05:16 MCV 89.0 fl (82-101) 01/04/24 05:16 MCH 30.6 pg (27-33) 01/04/24 05:16 MCHC 34.4 g/dL (30-55) 01/04/24 05:16 RDW 13.9 % (12.1-15.1) 01/04/24 05:16 Plt Count 350 10^3/cmm (157-399) 01/04/24 05:16 MPV 9.8 fL (7.4-10.4) 01/04/24 05:16 Neut % (Auto) 55.0 % 01/04/24 05:16 Lymph % (Auto) 28.1 % 01/04/24 05:16 [place] % (Auto) 10.1 % 01/04/24 05:16 Eos % (Auto) 4.7 % 01/04/24 05:16 Baso % (Auto) 0.7 % 01/04/24 05:16 Neut # (Auto) 4.54 10^3/uL (1.8-7.7) 01/04/24 05:16 Lymph # (Auto) 2.3 10^3/uL (0.8-4.8) 01/04/24 05:16 [place] # (Auto) 0.8 10^3/uL (0.2-0.9) 01/04/24 05:16 Eos # (Auto) 0.4 10^3/uL (0.0-0.8) 01/04/24 05:16 Baso # (Auto) 0.1 10^3/uL (0.0-0.1) 01/04/24 05:16 Nucleated RBC % (auto) 0 % 01/04/24 05:16 Nucleated RBCs # 0.0 /100WBC 01/04/24 05:16 Sodium 140 mmol/L (136-145) 01/04/24 05:16 Potassium 4.2 mmol/L (3.5-5.1) 01/04/24 05:16 Chloride 104 mmol/L (98-107) 01/04/24 05:16 Carbon Dioxide 26 mmol/L (22-29) 01/04/24 05:16 Anion Gap 14.2 (5-19) 01/04/24 05:16 BUN 12 mg/dL (6-20) 01/04/24 05:16 Creatinine 0.7 mg/dL (0.7-1.2) 01/04/24 05:16 GFR Calculation 123.1 mL/min (90-130) 01/04/24 05:16 Glucose 113 mg/dL (65-115) 01/04/24 05:16 Calculated Osmolality 291 mOsm/kg (285-295) 01/04/24 05:16 Calcium 9.3 mg/dL (8.5-10.5) 01/04/24 05:16 Total Bilirubin 0.3 mg/dL (0.15-1.2) 01/04/24 05:16 AST 22 U/L (0-40) 01/04/24 05:16 ALT 35 U/L (0-41) 01/04/24 05:16 Alkaline Phosphatase 63 U/L (40-130) 01/04/24 05:16 C-Reactive Protein 4.0 mg/L (0.0-4.9) 01/04/24 05:16 Total Protein 7.5 g/dL (6.6-8.7) 01/04/24 05:16 Albumin 4.1 g/dL (3.5-5.2) 01/04/24 05:16 Globulin 3.4 g/dL (1.3-4.6) 01/04/24 05:16 Lipase 20 U/L (13-60) 01/04/24 05:16 Urine Color Yellow (Yellow) 01/04/24 06:08 Urine Appearance Clear (CLEAR) 01/04/24 06:08 Urine pH 5 (5-7) 01/04/24 06:08 Ur Specific [place] 1.010 (1.005-1.030) 01/04/24 06:08 Urine Protein Neg (Negative) 01/04/24 06:08 Urine Glucose (UA) Norm (Normal) 01/04/24 06:08 Urine Ketones Negative (Negative) 01/04/24 06:08 Urine Blood Neg (Negative) 01/04/24 06:08 Urine Nitrate Negative (Negative) 01/04/24 06:08 Urine Bilirubin Neg (Negative) 01/04/24 06:08 Urine Urobilinogen Norm mg/dL (Negative) 01/04/24 06:08 Ur Leukocyte Esterase Negative (Negative) 01/04/24 06:08 Discharge Plan Discharge Patient Disposition: Home Clinical Impression: Seroma complicating a procedure Condition: Stable Prescriptions: No Action ergocalciferol (vitamin D2) 1,250 mcg (50,000 unit) capsule See Rx Instructions .ROUTE .COMPLEX Qty: 12 0RF Dose Instruction: TAKE ONE CAPSULE BY MOUTH EVERY SEVEN DAYS ON THURSDAY Rx Instructions: TAKE ONE CAPSULE BY MOUTH EVERY SEVEN DAYS ON THURSDAY ibuprofen 200 mg Capsule 800 mg PO Q8H PRN (Reason: Pain) Hold Instructions: Resume on 05/13/23. lisinopril 20 mg tablet 20 mg PO BID allopurinol 100 mg tablet 100 mg PO DAILY pantoprazole 40 mg tablet,delayed release (DR/EC) 40 mg PO BID triamterene-hydrochlorothiazid 37.5-25 mg tablet 1 tab PO QAM PRN (Reason: Edema) Rx Instructions: TAKE ONE TABLET BY MOUTH EVERY MORNING NEEDED FOR EDEMA Discharge Orders: Discharge ED (Routine); Ordered 01/04/24 Ordered By: Colt Amaya Referrals: Leatha Cifuentes FNP [Primary Care Provider] - Discharge Diet: Advance as tolerated Discharge Activity: Increase activity as tolerated Patient Instructions: Opioid Safety, Pain Management Activity Restrictions/Additional Instructions: Thank you for choosing [facility] for your healthcare needs today. Please realize this is an emergency room and that we are providing you with a medical screening exam and this may not be complete and all inclusive of all the testing and or work up that you may need to determine your ailment or severity of your illness. It is very important that you follow up as instructed or that you return to the Emergency Department should you have concerns or if your condition changes or worsens in any way. You are seen today for pain at the umbilicus. The previous CT was reviewed in today's CT they both show fluid contained area in the area of the previous hernia repair that appears to be seroma and some fat that was caught in the hernia repair. You were seen by Dr. Hassan he recommends follow-up with Dr. Worrell who did the initial hernia repair. Avoid heavy lifting until cleared by Dr. Worrell. Case management make arrangements for you to follow-up with Dr. Worrell in his office. Sign Out Sign Out Data: Patient Sign Out occurred on 01/04/24 at 07:19. Patient's care was discussed, and care was transferred from Ezekiel Anne DO to Colt Amaya DO. Coding Level of Care Code ED Field Test Engineer for Chg Fwd Documented by User: Colt Amaya DO 01/04/24 08:37 HPI - Abdominal Pain 2 General: Chief Complaint: Abdominal Pain Stated Complaint: ABD PAIN Time Seen by Provider: 01/04/24 05:17 PFS ED 2 PFSH: Medical History Peripheral edema Vitamin D deficiency Surgical History History of laparoscopic appendectomy History of laparoscopic cholecystectomy History of umbilical hernia repair Social History Smoking and tobacco/nicotine status: former use of tobacco/nicotine (6-8 cigarettes/day) Quit status (tobacco/nicotine): has quit using Year quit tobacco: 04/2023 Alcohol intake: current Alcohol intake frequency: holidays/special occasions only Alcohol type: beer Substance/Drug Use: never Lives independently: Yes Marital status: service: No Current occupational status: disabled Current gender identity: Male Special judi needs: No Agree to transfusion: Yes Physical Exam 2 Neuro: TIO COMA SCALE: document GCS findings Tio coma scale total score: 15 Course 2 Vital Signs: Vital signs: Vital Signs Temperature 97.9 F 01/04/24 04:53 Pulse Rate 63 01/04/24 06:30 Respiratory Rate 14 01/04/24 06:30 Blood Pressure 167/125 01/04/24 06:30 Pulse Oximetry 96 01/04/24 06:30 Oxygen Delivery Me thod Room Air 01/04/24 05:21 MDM - Abdominal Pain Medical Decision Making Care assumed at change of shift. Dr. Hassan was consulted. See his notes. Dr. Hassan related to me that he felt this is a seroma with some portion of fat incarcerated in the umbilical hernia repair. He is not recommending any acute intervention recommends follow-up with Dr. Worrell. Medical Records I reviewed the patient's medical records. Lab Data I reviewed the patient's lab results. 01/04/24 05:16 01/04/24 05:16 Labs/Radiology: Radiology Impressions Abdomen/Pelvis CT 01/04/24 05:26 IMPRESSION: 1. Unchanged appearance and size of midline ventral fluid collection surrounding fatty lesion at site of previous abdominal hernia repair, as detailed above. 2. Indeterminate subcentimeter right renal hypodensities could represent complex/proteinaceous cysts but are incompletely characterized. Consider dedicated renal ultrasound for further characterization. 3. Chronic/incidental findings as above Consistent with the [employer]'s Incidental Findings Committee white paper (J Am Nathalie Radiol 2018): Any incidental renal lesion less than 1 cm or classified as too small to characterize, or any incidental cystic renal lesion characterized as simple-appearing, is likely benign. No follow-up imaging is recommended for these lesions per consensus recommendations based on imaging criteria. Laboratory Results WBC 8.28 10^3/uL (3.29-11.43) 01/04/24 05:16 RBC 5.26 10^6/uL (3.85-5.65) 01/04/24 05:16 Hgb 16.10 g/dL (11.27-16.99) 01/04/24 05:16 Hct 46.8 % (37-53) 01/04/24 05:16 MCV 89.0 fl (82-101) 01/04/24 05:16 MCH 30.6 pg (27-33) 01/04/24 05:16 MCHC 34.4 g/dL (30-55) 01/04/24 05:16 RDW 13.9 % (12.1-15.1) 01/04/24 05:16 Plt Count 350 10^3/cmm (157-399) 01/04/24 05:16 MPV 9.8 fL (7.4-10.4) 01/04/24 05:16 Neut % (Auto) 55.0 % 01/04/24 05:16 Lymph % (Auto) 28.1 % 01/04/24 05:16 [place] % (Auto) 10.1 % 01/04/24 05:16 Eos % (Auto) 4.7 % 01/04/24 05:16 Baso % (Auto) 0.7 % 01/04/24 05:16 Neut # (Auto) 4.54 10^3/uL (1.8-7.7) 01/04/24 05:16 Lymph # (Auto) 2.3 10^3/uL (0.8-4.8) 01/04/24 05:16 [place] # (Auto) 0.8 10^3/uL (0.2-0.9) 01/04/24 05:16 Eos # (Auto) 0.4 10^3/uL (0.0-0.8) 01/04/24 05:16 Baso # (Auto) 0.1 10^3/uL (0.0-0.1) 01/04/24 05:16 Nucleated RBC % (auto) 0 % 01/04/24 05:16 Nucleated RBCs # 0.0 /100WBC 01/04/24 05:16 Sodium 140 mmol/L (136-145) 01/04/24 05:16 Potassium 4.2 mmol/L (3.5-5.1) 01/04/24 05:16 Chloride 104 mmol/L (98-107) 01/04/24 05:16 Carbon Dioxide 26 mmol/L (22-29) 01/04/24 05:16 Anion Gap 14.2 (5-19) 01/04/24 05:16 BUN 12 mg/dL (6-20) 01/04/24 05:16 Creatinine 0.7 mg/dL (0.7-1.2) 01/04/24 05:16 GFR Calculation 123.1 mL/min (90-130) 01/04/24 05:16 Glucose 113 mg/dL (65-115) 01/04/24 05:16 Calculated Osmolality 291 mOsm/kg (285-295) 01/04/24 05:16 Calcium 9.3 mg/dL (8.5-10.5) 01/04/24 05:16 Total Bilirubin 0.3 mg/dL (0.15-1.2) 01/04/24 05:16 AST 22 U/L (0-40) 01/04/24 05:16 ALT 35 U/L (0-41) 01/04/24 05:16 Alkaline Phosphatase 63 U/L (40-130) 01/04/24 05:16 C-Reactive Protein 4.0 mg/L (0.0-4.9) 01/04/24 05:16 Total Protein 7.5 g/dL (6.6-8.7) 01/04/24 05:16 Albumin 4.1 g/dL (3.5-5.2) 01/04/24 05:16 Globulin 3.4 g/dL (1.3-4.6) 01/04/24 05:16 Lipase 20 U/L (13-60) 01/04/24 05:16 Urine Color Yellow (Yellow) 01/04/24 06:08 Urine Appearance Clear (CLEAR) 01/04/24 06:08 Urine pH 5 (5-7) 01/04/24 06:08 Ur Specific [place] 1.010 (1.005-1.030) 01/04/24 06:08 Urine Protein Neg (Negative) 01/04/24 06:08 Urine Glucose (UA) Norm (Normal) 01/04/24 06:08 Urine Ketones Negative (Negative) 01/04/24 06:08 Urine Blood Neg (Negative) 01/04/24 06:08 Urine Nitrate Negative (Negative) 01/04/24 06:08 Urine Bilirubin Neg (Negative) 01/04/24 06:08 Urine Urobilinogen Norm mg/dL (Negative) 01/04/24 06:08 Ur Leukocyte Esterase Negative (Negative) 01/04/24 06:08 All radiology interpretation(s) finalized by discharge Discharge Plan Discharge Patient Disposition: Home Clinical Impression: Seroma complicating a procedure Condition: Stable Prescriptions: No Action ergocalciferol (vitamin D2) 1,250 mcg (50,000 unit) capsule See Rx Instructions .ROUTE .COMPLEX Qty: 12 0RF Dose Instruction: TAKE ONE CAPSULE BY MOUTH EVERY SEVEN DAYS ON THURSDAY Rx Instructions: TAKE ONE CAPSULE BY MOUTH EVERY SEVEN DAYS ON THURSDAY ibuprofen 200 mg Capsule 800 mg PO Q8H PRN (Reason: Pain) Hold Instructions: Resume on 05/13/23. lisinopril 20 mg tablet 20 mg PO BID allopurinol 100 mg tablet 100 mg PO DAILY pantoprazole 40 mg tablet,delayed release (DR/EC) 40 mg PO BID triamterene-hydrochlorothiazid 37.5-25 mg tablet 1 tab PO QAM PRN (Reason: Edema) Rx Instructions: TAKE ONE TABLET BY MOUTH EVERY MORNING NEEDED FOR EDEMA Discharge Orders: Discharge ED (Routine); Ordered 01/04/24 Ordered By: Colt Amaya Referrals: Leatha Cifuentes FNP [Primary Care Provider] - Discharge Diet: Advance as tolerated Discharge Activity: Increase activity as tolerated Patient Instructions: Opioid Safety, Pain Management Activity Restrictions/Additional Instructions: Thank you for choosing [facility] for your healthcare needs today. Please realize this is an emergency room and that we are providing you with a medical screening exam and this may not be complete and all inclusive of all the testing and or work up that you may need to determine your ailment or severity of your illness. It is very important that you follow up as instructed or that you return to the Emergency Department should you have concerns or if your condition changes or worsens in any way. You are seen today for pain at the umbilicus. The previous CT was reviewed in today's CT they both show fluid contained area in the area of the previous hernia repair that appears to be seroma and some fat that was caught in the hernia repair. You were seen by Dr. Hassan he recommends follow-up with Dr. Worrell who did the initial hernia repair. Avoid heavy lifting until cleared by Dr. Worrell. Case management make arrangements for you to follow-up with Dr. Worrell in his office. Sign Out Sign Out Data: Patient Sign Out occurred on 01/04/24 at 07:19. Patient's care was discussed, and care was transferred from Ezekiel Anne DO to Colt Amaya DO. Coding Level of Care Code ED Field Test Engineer for Janeth Sanchez
[2024-01-04 05:28] LABS: Basophils # 0.1 10^3/uL (0.0-0.1); Basophils % 0.7 %; Eosinophils # 0.4 10^3/uL (0.0-0.8); Eosinophils % 4.7 %; Hematocrit 46.8 % (37-53); Lymphocytes # 2.3 10^3/uL (0.8-4.8); Lymphocytes % 28.1 %; Mean Corpuscular HGB Conc 34.4 g/dL (30-55); Mean Corpuscular Hemoglobin 30.6 pg (27-33); Mean Platelet Volume 9.8 fL (7.4-10.4); Monocytes # 0.8 10^3/uL (0.2-0.9); Monocytes % 10.1 %; Neutrophils # 4.54 10^3/uL (1.8-7.7); Nucleated Red Blood Cells % 0 %; Platelet Count 350 10^3/cmm (157-399); Red Blood Count 5.26 10^6/uL (3.85-5.65); Red Cell Distribution Width 13.9 % (12.1-15.1); White Blood Count 8.28 10^3/uL (3.29-11.43)
[2024-01-04] MEDS: ondansetron 2 mg/ML SDV 2 mL 4 MG IVP (05:34)
[2024-01-04] MEDS: morphine 4 mg/mL SDV 1 mL IVP (05:34)
[2024-01-04 05:40] LABS: Alanine Aminotransferase 35 U/L (0-41); Albumin Level 4.1 g/dL (3.5-5.2); Alkaline Phosphatase 63 U/L (40-130); Anion Gap 14.2 (5-19); Aspartate Amino Transferase 22 U/L (0-40); Blood Urea Nitrogen 12 mg/dL (6-20); Calcium 9.3 mg/dL (8.5-10.5); Carbon Dioxide 26 mmol/L (22-29); Chloride 104 mmol/L (98-107); Globulin 3.4 g/dL (1.3-4.6); Glomerular Filtration Rate 123.1 mL/min (90-130); Glucose 113 mg/dL (65-115); Lipase 20 U/L (13-60); Osmolality Calculated 291 mOsm/kg (285-295); Potassium 4.2 mmol/L (3.5-5.1); Sodium 140 mmol/L (136-145); Total Bilirubin 0.3 mg/dL (0.15-1.2); Total Protein 7.5 g/dL (6.6-8.7)
[2024-01-04] MEDS: iohexol 350 mg/mL 500 mL Btl (per mL) IV (05:45)
[2024-01-04 06:11] LABS: Add Urine Microscopic? NO; Charge for UA Resulting for Rev
[2024-01-04 06:15] LABS: Bilirubin Urine Neg (Negative); Blood Urine Neg (Negative); Glucose Urine UA Norm (Normal); Ketones Urine Negative (Negative); Leukocyte Esterase Urine Negative (Negative); Nitrate Urine Negative (Negative); Protein Urine Neg (Negative); Urine Appearance Clear (CLEAR); Urine Color Yellow (Yellow); Urobilinogen Urine Norm (Negative); pH Urine 5 (5-7)
--- NOTE | 2024-01-04 08:34 | P.CONIM_ITS ---
Providers/Reason For Consult 2 Consulting Physician/Specialty*: General surgery Reason for Consult*: Abdominal pain area of previous hernia site. Primary Care Provider: MAYI Champion History of Present Illness History of Present Illness Michi Rain is a 43 year old male with history of ventral hernia, which was requiring, last repair was done by my colleague Dr. Worrell on April 2023 with an IPOM approach. Since then patient has had an adequate postoperative course, but lately he has noted pain at the level of the hernia site. This morning he felt like something was tearing in that area and developed some nausea and therefore decided to come to the ED. Workup in the emergency department showed normal labs CT scan of the abdomen pelvis was done and show evidence of what appears to be a postoperative seroma and small amount of inverted fat superior to the mesh patch, no significant evidence of recurrence noted. Review of Systems 2 General: Reports: 10 or more systems reviewed and unremarkable except in HPI and below Medications/Allergies Home Medications Medication Instructions Recorded Confirmed Last Taken Type ibuprofen 200 mg capsule 800 mg PO Q8H PRN Pain 03/10/23 01/04/24 05/09/23 History ergocalciferol (vitamin D2) 1,250 See Rx Instructions .Route 10/15/23 01/04/24 12/31/23 Rx mcg (50,000 unit) capsule .COMPLEX #12 caps allopurinol 100 mg tablet 100 mg PO DAILY 01/04/24 01/04/24 01/03/24 History lisinopril 20 mg tablet 20 mg PO BID 01/04/24 01/04/24 01/03/24 History pantoprazole 40 mg tablet,delayed 40 mg PO BID 01/04/24 01/04/24 01/03/24 History release triamterene 37.5 1 tab PO QAM PRN Edema 01/04/24 01/04/24 Unknown History mg-hydrochlorothiazide 25 mg tablet Allergies Allergy/AdvReac Type Severity Reaction Status Date / Time No Known Allergies Allergy Verified 10/12/23 14:26 PFSH Acute 2 PFSH: Medical History Peripheral edema Vitamin D deficiency Surgical History History of laparoscopic appendectomy History of laparoscopic cholecystectomy History of umbilical hernia repair Social History Smoking and tobacco/nicotine status: former use of tobacco/nicotine (6-8 cigarettes/day) Quit status (tobacco/nicotine): has quit using Year quit tobacco: 04/2023 Alcohol intake: current Alcohol intake frequency: holidays/special occasions only Alcohol type: beer Substance/Drug Use: never Lives independently: Yes Marital status: service: No Current occupational status: disabled Current gender identity: Male Special judi needs: No Agree to transfusion: Yes Vitals/I&O/Wt Last Vital Signs Temp 97.9 F 01/04/24 04:53 Pulse 63 01/04/24 06:30 Resp 14 01/04/24 06:30 BP 167/125 01/04/24 06:30 Pulse Ox 96 01/04/24 06:30 O2 Del Method Room Air 01/04/24 05:21 Weight last 48 hrs Weight 390 lb Physical Exam 2 Narrative: General : Patient is well developed , no acute distress, oriented x3 Head : Normal cephalic, a-traumatic. Nose : Mucous membranes are without erythema. Lungs : Equal chest rise bilaterally, no use of accessory muscles, trachea is midline. CV : Rate and rhythm are normal. Abdomen : Nontender, there is localized tenderness over the area of previous hernia repair with you can feel what appears to be a seroma. Extremities : No edema. Upper extremities are normal bilaterally. Back : non-tender to palpation, no CVA tenderness. Abdomen is soft, Data 01/04/24 05:16 01/04/24 05:16 A&P Assessment and plan (1) Morbid obesity: (2) Postoperative seroma: Plan After complete history, physical examination and review of all available clinical data the following is my assessment. This patient is 6 months status post repair of recurrent ventral hernia with an IPOM approach. Presents with abdominal pain and CAT scan showed evidence of a possible postoperative seroma with some properitoneal fat in the previous hernia location which is likely infarcted. I have had a extensive discussion with the patient regarding his postoperative course and possible therapies, I have informed the patient that while he is having pain at the level of the previous hernia site, there is no evidence of an actual hernia recurrence, there is no bowel inside of the hernia and no evidence of other intra-abdominal pathology. The seroma and infected fat appear to be on top of the mesh, explained to the patient that there might be a need for revision and possible need for drainage of the seroma in an operative setting, but this should be done in an outpatient elective setting as there is no emergent need to proceed to the operating room. Patient shows understanding, we will provide some pain medication and patient will follow-up as outpatient with my colleague Dr. Worrell to discuss the need for additional interventions. Warning signs given, patient shows understanding and agrees. Coding Level of Care Code Acute Code for Chg Fwd Diagnoses Morbid obesity E66.01 Postoperative seroma
--- NOTE | 2024-01-04 09:14 | DCPLANNER ---
Message was sent to general surgery on 01/04/24 at 0914. Clinic to contact patient.
== END 2024-01-04 09:33 | disposition home or self-care (01) ==
PROVIDERS: Emergency Medicine; Emergency Provider Family Medicine; PCP Nurse Practitioner Family
DX: L76.34 Postprocedural seroma of skin and subcutaneous tissue following other procedure (principal); Z87.891 Personal history of nicotine dependence
CPT/HCPCS: 74177; 80053; 81003; 83690; 85025; 86140; 96374; 96375; 99285; J2270; J2405; Q9967

== ENCOUNTER 2024-02-06 16:05 | Emergency (ER) | payer MEDICARE, MEDICAID, SELFPAY ==
[2024-02-06 16:06] VITALS: BP 171/95; PULSE 67; RESP 18; TEMP 36.7; O2SAT 98
--- NOTE | 2024-02-06 16:15 | ECG_ITS ---
[facility] Test Date: 2024-02-06 Pat Name: Michi Rain Department: Room: Gender: Male Guest House Manager: : 1980 Requested By: Jeramy Dempsey Order Number: [id number] Sejal MD: Shawn Nagy M.D. Measurements Intervals [place] Rate: 64 P: 44 PA: 156 QRS: 36 QRSD: 92 T: 61 QT: 362 QTc: 374 Interpretive Statements SINUS RHYTHM POSSIBLE RIGHT VENTRICULAR CONDUCTION DELAY [RSR (QR) IN V1/V2] Compared to ECG 04/17/2023 16:54:20 Sinus bradycardia no longer present ST (T wave) deviation no longer present Electronically Signed On 02-07-2024 10:23:36 CDT by Shawn Nagy M.D. [id number] f
--- NOTE | 2024-02-06 16:15 | XRR_ITS ---
PROCEDURE INFORMATION: Exam: XR Chest Exam date and time: 02/06/2024 4:28 PM Age: 43 years old Clinical indication: Pain; Chest pressure; Prior surgery; Surgery date: 6+ months; Surgery type: Hernia; Additional info: Cxp TECHNIQUE: Imaging protocol: Radiologic exam of the chest. Views: 1 view. COMPARISON: CR XR chest 1V portable [id number] 03/20/2023 7:51 AM FINDINGS: Lungs: Unremarkable. No consolidation. Pleural spaces: Unremarkable. No pleural effusion. No pneumothorax. Heart/Mediastinum: Unremarkable. No cardiomegaly. Bones/joints: Unremarkable. XR/XR chest 1V portable [id number] IMPRESSION: No acute findings.
[2024-02-06] MEDS: aspirin 81 mg Chew Tablet 324 MG PO (16:40)
[2024-02-06 16:56] LABS: Basophils # 0.1 10^3/uL (0.0-0.1); Basophils % 0.7 %; Eosinophils # 0.3 10^3/uL (0.0-0.8); Eosinophils % 3.2 %; Hematocrit 49.9 % (37-53); Lymphocytes # 3.1 10^3/uL (0.8-4.8); Lymphocytes % 34.2 %; Mean Corpuscular HGB Conc 33.5 g/dL (30-55); Mean Corpuscular Volume 92.6 fl (82-101); Mean Platelet Volume 9.5 fL (7.4-10.4); Monocytes % 10.3 %; Neutrophils # 4.62 10^3/uL (1.8-7.7); Neutrophils % 50.3 %; Nucleated Red Blood Cells % 0 %; Platelet Count 333 10^3/cmm (157-399); Red Blood Count 5.39 10^6/uL (3.85-5.65); Red Cell Distribution Width 14.9 % (12.1-15.1); White Blood Count 9.18 10^3/uL (3.29-11.43)
--- NOTE | 2024-02-06 16:56 | W.ED.CHESTPA ---
HPI - Chest Pain General: Chief Complaint: Chest Pain Stated Complaint: Chest pain Time Seen by Provider: 02/06/24 16:15 History of Present Illness: 43-year-old male presents to the emergency department with complaints of acute is having chest pressure. He states he also has some intermittent shortness of breath and dizziness that he feels is associated with his chest pressure. He states the chest pressure started approximately 3 days ago and has been continually getting worse. He states that today he feels like someone is sitting on his chest. He states he does have a primary care provider appointment scheduled and had planned on talk to his primary care provider about increasing his hypertensive medication. He states his current chest pressure is a 5 out of 10 nothing makes it better and nothing makes it worse. He does endorse feeling like he is having some intermittent dizziness but is unable to specify if his chest pressure is related to his dizziness. Associated symptoms: Reports dyspnea Review of Systems General: Reports: 10 or more systems reviewed and unremarkable except in HPI and below Card: Reports: chest pain Resp: Reports: dyspnea Neuro: Reports: dizziness PFSH ED PFSH: Medical History Peripheral edema Vitamin D deficiency Surgical History History of laparoscopic appendectomy History of laparoscopic cholecystectomy History of umbilical hernia repair Social History Smoking and tobacco/nicotine status: former use of tobacco/nicotine (6-8 cigarettes/day) Quit status (tobacco/nicotine): has quit using Year quit tobacco: 04/2023 Alcohol intake: current Alcohol intake frequency: holidays/special occasions only Alcohol type: beer Substance/Drug Use: never Lives independently: Yes Marital status: service: No Current occupational status: disabled Current gender identity: Male Special judi needs: No Agree to transfusion: Yes Physical Exam Narrative: EXAM NARRATIVE: Constitutional: the patient appears well nourished and with normal development. Vital signs reviewed as documented. HENMT: Normocephalic, atraumatic. External ears normal appearance without drainage. Nose without drainage, normal appearance. Mucus membranes moist. Neck is supple, No jugular venous distension, trachea is midline, no appreciable carotid bruits. No lymphadenopathy. No meningeal signs. Flexion, extension and lateral rotation is without pain. Eyes: Pupils are equal, round, reactive to light and accommodation. No scleral icterus. Extra-ocular movement are intact. Thorax is symmetrical and with equal rise and fall with respirations. Resp: Lungs are clear to auscultation. No wheezes, rales, crackles or ronchi at present. Cardio: Regular rate and rhythm. Positive S1, S2. No appreciable murmurs, rubs or gallops. GI: Abdominal exam reveals normal bowel sounds to all quadrants. No organomegaly. No obvious palpable masses noted. No hepatomegally appreciated. Soft, non-tender to palpation. Extremity: Extremities are non-edematous and both femoral and pedal pulses are 2+ and equal bilaterally. Moves all extremities well, sensation in all extremities. Neuro: Alert and oriented x4, person, place, time and situation. Cranial nerves II through XII are grossly intact, there is no focal neurological deficits that I can appreciate at present. Sensation intact to all extremities. 2-point discrimination intact. Light touch intact to all extremities. Motor strength in the upper and lower extremities are equal and bilateral 5/5. Psych: Cooperative, calm, normal thought process, appropriate judgment. Skin: No lesions, rashes. No gross abnormalities noted. Back: Symmetrical, no obvious deformity, No CVA tenderness Course ED course: Repeat twelve-lead EKG demonstrated abnormality pictorial and leads I did contact Dr. Nagy in cardiology and discussed the patient's initial secondhand third EKG second EKG EKG leads that were displaced that was getting a falsely elevated appearance. We are currently awaiting a second cardiac enzyme result. Vital Signs: Vital signs: Vital Signs Temperature 98.1 F 02/06/24 16:06 Pulse Rate 63 02/06/24 20:03 Respiratory Rate 17 02/06/24 20:03 Blood Pressure 167/90 02/06/24 20:03 Pulse Oximetry 94 02/06/24 20:03 Oxygen Delivery Me thod Room Air 02/06/24 18:59 MDM - Chest Pain Medical Decision Making Physical exam completed and documented, I will obtain serial cardiac enzymes, serial twelve-lead EKGs, chest x-ray, CBC, CMP, urinalysis, B-type natriuretic peptide, PT/PTT/INR, and a chest x-ray. I will provide cardiac dose aspirin. I have reviewed previous and pertinent medical records for assist in obtaining beneficial medical information to improved the care and treatment of the patient. Medical Records I reviewed the patient's medical records. Lab Data I reviewed the patient's lab results. 02/06/24 16:50 02/06/24 16:50 Radiology Impressions Chest X-Ray 02/06/24 16:15 IMPRESSION: No acute findings. Laboratory Results WBC 9.18 10^3/uL (3.29-11.43) 02/06/24 16:50 RBC 5.39 10^6/uL (3.85-5.65) 02/06/24 16:50 Hgb 16.70 g/dL (11.27-16.99) 02/06/24 16:50 Hct 49.9 % (37-53) 02/06/24 16:50 MCV 92.6 fl (82-101) 02/06/24 16:50 MCH 31.0 pg (27-33) 02/06/24 16:50 MCHC 33.5 g/dL (30-55) 02/06/24 16:50 RDW 14.9 % (12.1-15.1) 02/06/24 16:50 Plt Count 333 10^3/cmm (157-399) 02/06/24 16:50 MPV 9.5 fL (7.4-10.4) 02/06/24 16:50 Neut % (Auto) 50.3 % 02/06/24 16:50 Lymph % (Auto) 34.2 % 02/06/24 16:50 [place] % (Auto) 10.3 % 02/06/24 16:50 Eos % (Auto) 3.2 % 02/06/24 16:50 Baso % (Auto) 0.7 % 02/06/24 16:50 Neut # (Auto) 4.62 10^3/uL (1.8-7.7) 02/06/24 16:50 Lymph # (Auto) 3.1 10^3/uL (0.8-4.8) 02/06/24 16:50 [place] # (Auto) 1.0 10^3/uL (0.2-0.9) H 02/06/24 16:50 Eos # (Auto) 0.3 10^3/uL (0.0-0.8) 02/06/24 16:50 Baso # (Auto) 0.1 10^3/uL (0.0-0.1) 02/06/24 16:50 Nucleated RBC % (auto) 0 % 02/06/24 16:50 Nucleated RBCs # 0.0 /100WBC 02/06/24 16:50 PT 12.60 SECONDS (12.1-14.9) 02/06/24 16:50 INR 0.92 (0.8-1.2) 02/06/24 16:50 Sodium 137 mmol/L (136-145) 02/06/24 16:50 Potassium 4.4 mmol/L (3.5-5.1) 02/06/24 16:50 Chloride 100 mmol/L (98-107) 02/06/24 16:50 Carbon Dioxide 26 mmol/L (22-29) 02/06/24 16:50 Anion Gap 15.4 (5-19) 02/06/24 16:50 BUN 11 mg/dL (6-20) 02/06/24 16:50 Creatinine 0.7 mg/dL (0.7-1.2) 02/06/24 16:50 GFR Calculation 123.1 mL/min (90-130) 02/06/24 16:50 Glucose 100 mg/dL (65-115) 02/06/24 16:50 Calculated Osmolality 283 mOsm/kg (285-295) L 02/06/24 16:50 Calcium 9.6 mg/dL (8.5-10.5) 02/06/24 16:50 Total Bilirubin 0.3 mg/dL (0.15-1.2) 02/06/24 16:50 AST 23 U/L (0-40) 02/06/24 16:50 ALT 35 U/L (0-41) 02/06/24 16:50 Alkaline Phosphatase 64 U/L (40-130) 02/06/24 16:50 Troponin T Baseline 8 ng/L (0-15) 02/06/24 16:50 Troponin T 120 Minute 7.27 ng/L (0-15) 02/06/24 18:56 Delta Troponin T -0.73 ABS# (0-10) L 02/06/24 18:56 NT-Pro-B Natriuret Pep < 36 pg/mL (0-125) 02/06/24 16:50 Total Protein 7.2 g/dL (6.6-8.7) 02/06/24 16:50 Albumin 4.4 g/dL (3.5-5.2) 02/06/24 16:50 Globulin 2.8 g/dL (1.3-4.6) 02/06/24 16:50 All radiology interpretation(s) finalized by discharge EKG Data EKG 1: Interpretation: Twelve-lead EKG obtained at 1608 and reviewed at 1610 demonstrates normal sinus rhythm with a ventricular rate of 64 bpm, RI interval 156, QRS duration 92, QT 362, QTc [address] elevation or depression to demonstrate acute ischemia or infarction at present. Discharge Plan Discharge Patient Disposition: Home Clinical Impression: Atypical chest pain Condition: Stable Prescriptions: No Action ergocalciferol (vitamin D2) 1,250 mcg (50,000 unit) capsule See Rx Instructions .ROUTE .COMPLEX Qty: 12 0RF Dose Instruction: TAKE ONE CAPSULE BY MOUTH EVERY SEVEN DAYS ON THURSDAY Rx Instructions: TAKE ONE CAPSULE BY MOUTH EVERY SEVEN DAYS ON THURSDAY ibuprofen 200 mg Capsule 800 mg PO Q8H PRN (Reason: Pain) Hold Instructions: Resume on 05/13/23. lisinopril 20 mg tablet 20 mg PO BID allopurinol 100 mg tablet 100 mg PO QAM pantoprazole 40 mg tablet,delayed release (DR/EC) 40 mg PO BID triamterene-hydrochlorothiazid 37.5-25 mg tablet 1 tab PO QAM PRN (Reason: Edema) Rx Instructions: TAKE ONE TABLET BY MOUTH EVERY MORNING NEEDED FOR EDEMA Discharge Orders: Discharge ED (Routine); Ordered 02/06/24 Ordered By: Jeramy Dempsey Referrals: Leatha Cifuentes FNP [Primary Care Provider] - Discharge Diet: Cardiac Discharge Activity: Resume usual activity Patient Instructions: Opioid Safety, Pain Management Activity Restrictions/Additional Instructions: Activity Restrictions/Additional Instructions: Thank you for choosing [facility] for your healthcare needs today. Please realize that you were seen in the Emergency Department and that we are providing you with an emergency medical screening exam and this may not be a complete and all inclusive of all the testing and or medical work-up that you may need to determine your ailment or severity of your illness. It is very important that you follow-up as instructed with your Primary care provider or Specialist for additional evaluation and to discuss your medical treatment plan. You may return to the Emergency Department should you have concerns or if your condition changes or worsens in any way. Coding Level of Care Code ED Batterboard Setter for Janeth Sanchez
[2024-02-06 17:10] LABS: INR 0.92 (0.8-1.2)
[2024-02-06 17:17] LABS: Troponin(5th) Baseline 8 ng/L (0-15)
[2024-02-06 17:26] LABS: Alanine Aminotransferase 35 U/L (0-41); Albumin Level 4.4 g/dL (3.5-5.2); Alkaline Phosphatase 64 U/L (40-130); Anion Gap 15.4 (5-19); Aspartate Amino Transferase 23 U/L (0-40); Blood Urea Nitrogen 11 mg/dL (6-20); Calcium 9.6 mg/dL (8.5-10.5); Carbon Dioxide 26 mmol/L (22-29); Chloride 100 mmol/L (98-107); Globulin 2.8 g/dL (1.3-4.6); Glomerular Filtration Rate 123.1 mL/min (90-130); Glucose 100 mg/dL (65-115); NT Pro B Type Natriuretic Pept < 36 pg/mL (0-125); Osmolality Calculated 283 mOsm/kg (285-295); Potassium 4.4 mmol/L (3.5-5.1); Sodium 137 mmol/L (136-145); Total Bilirubin 0.3 mg/dL (0.15-1.2); Total Protein 7.2 g/dL (6.6-8.7)
--- NOTE | 2024-02-06 18:33 | ECG_ITS ---
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 Measurements Intervals [place] Rate: 55 P: 39 [place]: 165 QRS: 38 QRSD: 92 T: 55 QT: 403 QTc: 387 Interpretive Statements SINUS BRADYCARDIA POSSIBLE RIGHT VENTRICULAR CONDUCTION DELAY [RSR (QR) IN V1/V2] EARLY REPOLARIZATION [ST ELEVATION WITH NORMALLY INFLECTED T-WAVE] Compared to ECG 02/06/2024 16:08:04 Early repolarization now present Sinus rhythm no longer present Electronically Signed On 02-07-2024 10:25:30 CDT by Shawn Nagy M.D. [id number]
--- NOTE | 2024-02-06 18:43 | ECG_ITS ---
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 Measurements Intervals [place] Rate: 58 P: 40 [place]: 169 QRS: 35 QRSD: 93 T: 52 QT: 398 QTc: 394 Interpretive Statements SINUS BRADYCARDIA POSSIBLE RIGHT VENTRICULAR CONDUCTION DELAY [RSR (QR) IN V1/V2] Compared to ECG 02/06/2024 18:33:07 Early repolarization no longer present Electronically Signed On 02-07-2024 10:23:46 CDT by Shawn Nagy M.D. [email or web address]
[2024-02-06 18:59] VITALS: BP 138/80; PULSE 58; RESP 15; O2SAT 95
[2024-02-06 19:44] LABS: Troponin 5 2HR 7.27 ng/L (0-15)
[2024-02-06 19:46] LABS: Troponin 5 2HR Delta -0.73 ABS# (0-10)
[2024-02-06 20:03] VITALS: BP 167/90; PULSE 63; RESP 17; O2SAT 94
== END 2024-02-06 20:05 | disposition home or self-care (01) ==
PROVIDERS: Emergency Provider Internal Medicine; PCP Nurse Practitioner Family
DX: R07.89 Other chest pain (principal); Z87.891 Personal history of nicotine dependence
CPT/HCPCS: 36415; 71045; 80053; 83880; 84484; 85025; 85610; 93005; 99285

== ENCOUNTER 2024-02-08 08:51 | Emergency (ER) | payer MEDICARE, MEDICAID, SELFPAY ==
--- NOTE | 2024-02-08 07:56 | ECG_ITS ---
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 Measurements Intervals [place] Rate: 61 P: 55 [place]: 184 QRS: 38 QRSD: 101 T: 49 QT: 386 QTc: 390 Interpretive Statements SINUS RHYTHM POSSIBLE RIGHT VENTRICULAR CONDUCTION DELAY [RSR (QR) IN V1/V2] Compared to ECG 02/06/2024 18:46:18 Sinus bradycardia no longer present Electronically Signed On 02-08-2024 14:20:18 CDT by Shawn Nagy M.D. [id number]
[2024-02-08 08:52] VITALS: BMI 47.5
[2024-02-08 08:55] VITALS: BP 163/84; PULSE 56; RESP 16; TEMP 36.9; O2SAT 97
--- NOTE | 2024-02-08 09:07 | XRR_ITS ---
PROCEDURE INFORMATION: Exam: XR Chest Exam date and time: 02/08/2024 9:23 AM Age: 43 years old Clinical indication: Pain; Angina pectoris; Additional info: Chest pain TECHNIQUE: Imaging protocol: Radiologic exam of the chest. Views: 1 view. COMPARISON: CR (CHEST, ) 02/06/2024 4:28 PM FINDINGS: Lungs: Unremarkable. No consolidation. Pleural spaces: Unremarkable. No pleural effusion. No pneumothorax. Heart/Mediastinum: Unremarkable. No cardiomegaly. Bones/joints: Unchanged mild scoliosis and spondylosis. XR/XR chest 1V portable [id number] IMPRESSION: No acute disease. Unchanged.
--- NOTE | 2024-02-08 09:08 | W.ED.CHESTPA ---
HPI - Chest Pain General: Chief Complaint: Chest Pain Stated Complaint: chest pain Time Seen by Provider: 02/08/24 09:05 Source: patient Mode of arrival: EMS Limitations: no limitations History of Present Illness: Patient is a 43-year-old male here for complaints of left-sided chest pain. Patient was seen here 3 days ago for identical symptoms. Workup at that time was benign and patient was discharged home. He states his pain has been constant since his discharge. He states it is not worsening or improving. At that visit pain had been present for 3 days making entire course roughly 6 days or so. He denies any worsening or alleviating factors to his discomfort. He states pain is located to the left side of his chest and feels like a heaviness. He states occasionally he will feel a palpitation. Denies racing heart rate. He is not complaining of shortness of breath. No known cardiac or pulmonary history. He does report a history of high blood pressure. MD complaint: chest pain Onset (ago): day(s) Timing of current episode: constant Prior episodes: No Pain location: left chest Pain radiation: none Severity: moderate Quality: heaviness Relieving factors: nothing Exacerbating factors: nothing Associated symptoms: Reports palpitations; Deny abdominal pain, dyspnea, fever(s), nausea, syncope or vomiting Treatment prior to arrival: none Risk Factors: Coronary artery disease risk factors: hypertension Thoracic aortic dissection risk factors: none Review of Systems Const: Denies: fever(s), chills, body aches, fatigue or malaise Card: Reports: chest pain and palpitations; Denies: irregular heart rhythm, edema, swelling of feet/ankles, lightheadedness, syncope, pre-syncope, dyspnea on exertion, orthopnea, leg pain with exertion or acrocyanosis Resp: Denies: dyspnea, productive cough, non-productive cough, pain on inspiration, change in phlegm color, hemoptysis or chest congestion GI: Denies: abdominal pain, nausea, vomiting or diarrhea Musc: Denies: neck pain, back pain, extremity pain or joint pain Skin/Breast: Denies: rash Neuro: Denies: headache(s), numbness in extremities, weakness in extremities, sensory changes or dizziness [facility] ED PFSH: Medical History Peripheral edema Vitamin D deficiency Surgical History History of laparoscopic cholecystectomy History of laparoscopic appendectomy History of umbilical hernia repair Social History Smoking and tobacco/nicotine status: former use of tobacco/nicotine (6-8 cigarettes/day) Quit status (tobacco/nicotine): has quit using Year quit tobacco: 04/2023 Alcohol intake: current Alcohol intake frequency: holidays/special occasions only Alcohol type: beer Substance/Drug Use: never Lives independently: Yes Marital status: service: No Current occupational status: disabled Current gender identity: Male Special judi needs: No Agree to transfusion: Yes Physical Exam Const: COMMON NORMALS: no acute distress, patient oriented x3, no limitations, alert and well nourished GENERAL APPEARANCE: cooperative NUTRITIONAL APPEARANCE: obese morbidly obese ORIENTATION/CONSCIOUSNESS: Yes awake, Yes oriented to person, Yes oriented to place and Yes oriented to time Neck/C-Spine: COMMON NORMALS: no JVD Chest: COMMONS NORMALS: normal inspection of the chest OTHER: TTP anterior chest wall Resp: COMMON NORMALS: normal respiratory effort and clear to auscultation bilaterally AUSCULTATION: clear to auscultation bilaterally Cardio: COMMON NORMALS: no JVD and regular rhythm RATE: bradycardic (upper 50s) RHYTHM: regular rhythm GI: COMMON NORMALS: Normal to inspection, nondistended, normoactive bowel sounds present, Soft to palpation, non-tender and no masses PALPATION: Yes Soft to palpation Extremity: COMMON NORMALS: no clubbing, cyanosis or edema, no calf tenderness and no pedal edema GENERAL: Yes normal exam except as noted Neuro: TIO COMA SCALE: document GCS findings Tio coma scale eye opening: Spontaneous Tio coma scale verbal response: Orientated Tio coma scale motor response: [place] commands [place] coma scale total score: 15 COMMON NORMALS: patient oriented x3 SENSORIUM/ORIENTATION: Yes alert, Yes oriented to person, Yes oriented to place and Yes oriented to time Skin: COMMON NORMALS: no rashes or lesions noted GENERAL SKIN EXAM: no rashes or lesions noted Course Vital Signs: Vital signs: Vital Signs Temperature 98.4 F 02/08/24 08:55 Pulse Rate 54 L 02/08/24 10:00 Respiratory Rate 14 02/08/24 10:00 Blood Pressure 131/76 02/08/24 10:00 Pulse Oximetry 95 02/08/24 10:00 Oxygen Delivery Me thod Room Air 02/08/24 08:55 MDM - Chest Pain Medical Decision Making Patient here for chest pain over the past 6 days. He was seen here 3 days ago and had a negative cardiac workup including baseline and repeat troponins. BNP was normal on that visit. EKGs on that visit were reviewed. EKG here showing no changes from that visit. His baseline troponin here is negative again. Pain is somewhat reproducible with palpation. CXR is normal. He did have one visualized PVC on the monitor during examination that correlated with his feeling of palpitation. At this time I recommend he follow-up with his primary care provider about obtaining possible stress test outpatient for further evaluation of his chest pain. Return to ED precautions given. Medical Records I reviewed the patient's medical records. Lab Data I reviewed the patient's lab results. 02/08/24 09:02 02/08/24 09:02 Radiology Impressions Chest X-Ray 02/08/24 09:07 IMPRESSION: No acute disease. Unchanged. Laboratory Results WBC 7.95 10^3/uL (3.29-11.43) 02/08/24 09:02 RBC 5.06 10^6/uL (3.85-5.65) 02/08/24 09:02 Hgb 15.80 g/dL (11.27-16.99) 02/08/24 09:02 Hct 47.4 % (37-53) 02/08/24 09:02 MCV 93.7 fl (82-101) 02/08/24 09:02 MCH 31.2 pg (27-33) 02/08/24 09:02 MCHC 33.3 g/dL (30-55) 02/08/24 09:02 RDW 14.9 % (12.1-15.1) 02/08/24 09:02 Plt Count 292 10^3/cmm (157-399) 02/08/24 09:02 MPV 9.8 fL (7.4-10.4) 02/08/24 09:02 Neut % (Auto) 55.4 % 02/08/24 09:02 Lymph % (Auto) 29.8 % 02/08/24 09:02 [place] % (Auto) 9.4 % 02/08/24 09:02 Eos % (Auto) 3.4 % 02/08/24 09:02 Baso % (Auto) 0.5 % 02/08/24 09:02 Neut # (Auto) 4.40 10^3/uL (1.8-7.7) 02/08/24 09:02 Lymph # (Auto) 2.4 10^3/uL (0.8-4.8) 02/08/24 09:02 [place] # (Auto) 0.8 10^3/uL (0.2-0.9) 02/08/24 09:02 Eos # (Auto) 0.3 10^3/uL (0.0-0.8) 02/08/24 09:02 Baso # (Auto) 0.0 10^3/uL (0.0-0.1) 02/08/24 09:02 Nucleated RBC % (auto) 0 % 02/08/24 09:02 Nucleated RBCs # 0.0 /100WBC 02/08/24 09:02 Sodium 137 mmol/L (136-145) 02/08/24 09:02 Potassium 4.2 mmol/L (3.5-5.1) 02/08/24 09:02 Chloride 101 mmol/L (98-107) 02/08/24 09:02 Carbon Dioxide 25 mmol/L (22-29) 02/08/24 09:02 Anion Gap 15.2 (5-19) 02/08/24 09:02 BUN 11 mg/dL (6-20) 02/08/24 09:02 Creatinine 0.8 mg/dL (0.7-1.2) 02/08/24 09:02 GFR Calculation 105.5 mL/min (90-130) 02/08/24 09:02 Glucose 115 mg/dL (65-115) 02/08/24 09:02 Calculated Osmolality 284 mOsm/kg (285-295) L 02/08/24 09:02 Calcium 9.2 mg/dL (8.5-10.5) 02/08/24 09:02 Total Bilirubin 0.4 mg/dL (0.15-1.2) 02/08/24 09:02 AST 26 U/L (0-40) 02/08/24 09:02 ALT 32 U/L (0-41) 02/08/24 09:02 Alkaline Phosphatase 60 U/L (40-130) 02/08/24 09:02 Troponin T Baseline 8 ng/L (0-15) 02/08/24 09:02 Total Protein 6.9 g/dL (6.6-8.7) 02/08/24 09:02 Albumin 4.1 g/dL (3.5-5.2) 02/08/24 09:02 Globulin 2.8 g/dL (1.3-4.6) 02/08/24 09:02 All radiology interpretation(s) finalized by discharge Discharge Plan Discharge Patient Disposition: Home Clinical Impression: Atypical chest pain Condition: Stable Prescriptions: No Action ergocalciferol (vitamin D2) 1,250 mcg (50,000 unit) capsule See Rx Instructions .ROUTE .COMPLEX Qty: 12 0RF Dose Instruction: TAKE ONE CAPSULE BY MOUTH EVERY SEVEN DAYS ON THURSDAY Rx Instructions: TAKE ONE CAPSULE BY MOUTH EVERY SEVEN DAYS ON THURSDAY ibuprofen 200 mg Capsule 800 mg PO Q8H PRN (Reason: Pain) Hold Instructions: Resume on 05/13/23. lisinopril 20 mg tablet 20 mg PO BID allopurinol 100 mg tablet 100 mg PO QAM pantoprazole 40 mg tablet,delayed release (DR/EC) 40 mg PO BID triamterene-hydrochlorothiazid 37.5-25 mg tablet 1 tab PO QAM PRN (Reason: Edema) Discharge Orders: Discharge ED (Routine); Ordered 02/08/24 Ordered By: Jenny Horn Referrals: Leatha Cifuentes FNP [Primary Care Provider] - Patient Instructions: Chest Pain (DC) Activity Restrictions/Additional Instructions: As we discussed I would like you to follow-up with your primary care provider to discuss outpatient cardiac stress test for further evaluation of your chest pain. You may return to the emergency department for worsening chest pain, shortness of breath, difficulty breathing, severe dizziness or passing out episodes, or any other concerns you may have. Coding Level of Care Code ED Urban Gardening Specialist for Janeth Sanchez
[2024-02-08 09:20] LABS: Basophils % 0.5 %; Eosinophils # 0.3 10^3/uL (0.0-0.8); Eosinophils % 3.4 %; Hematocrit 47.4 % (37-53); Lymphocytes # 2.4 10^3/uL (0.8-4.8); Lymphocytes % 29.8 %; Mean Corpuscular HGB Conc 33.3 g/dL (30-55); Mean Corpuscular Hemoglobin 31.2 pg (27-33); Mean Corpuscular Volume 93.7 fl (82-101); Mean Platelet Volume 9.8 fL (7.4-10.4); Monocytes # 0.8 10^3/uL (0.2-0.9); Monocytes % 9.4 %; Neutrophils % 55.4 %; Nucleated Red Blood Cells % 0 %; Platelet Count 292 10^3/cmm (157-399); Red Blood Count 5.06 10^6/uL (3.85-5.65); Red Cell Distribution Width 14.9 % (12.1-15.1); White Blood Count 7.95 10^3/uL (3.29-11.43)
[2024-02-08 09:31] LABS: Alanine Aminotransferase 32 U/L (0-41); Albumin Level 4.1 g/dL (3.5-5.2); Alkaline Phosphatase 60 U/L (40-130); Aspartate Amino Transferase 26 U/L (0-40); Blood Urea Nitrogen 11 mg/dL (6-20); Calcium 9.2 mg/dL (8.5-10.5); Carbon Dioxide 25 mmol/L (22-29); Chloride 101 mmol/L (98-107); Creatinine Clr Calc Pharmacy 206.8666; Globulin 2.8 g/dL (1.3-4.6); Glomerular Filtration Rate 105.5 mL/min (90-130); Glucose 115 mg/dL (65-115); Osmolality Calculated 284 mOsm/kg (285-295); Sodium 137 mmol/L (136-145); Total Bilirubin 0.4 mg/dL (0.15-1.2); Total Protein 6.9 g/dL (6.6-8.7)
[2024-02-08 09:34] LABS: Anion Gap 15.2 (5-19); Potassium 4.2 mmol/L (3.5-5.1)
[2024-02-08 09:39] LABS: Troponin(5th) Baseline 8 ng/L (0-15)
[2024-02-08 10:00] VITALS: BP 131/76; PULSE 54; RESP 14; O2SAT 95
== END 2024-02-08 10:45 | disposition home or self-care (01) ==
PROVIDERS: Emergency Provider Physician Assistant; PCP Nurse Practitioner Family
DX: R07.89 Other chest pain (principal); Z87.891 Personal history of nicotine dependence
CPT/HCPCS: 71045; 80053; 84484; 85025; 93005; 99285

== ENCOUNTER 2024-05-06 01:04 | Emergency (ER) | payer MEDICARE, MEDICAID, SELFPAY ==
[2024-05-06 01:05] VITALS: BP 145/77; PULSE 81; RESP 16; TEMP 36.8; O2SAT 91; BMI 47.5
--- NOTE | 2024-05-06 01:09 | CTR_ITS ---
PROCEDURE INFORMATION: Exam: CT Abdomen And Pelvis With Contrast Exam date and time: 05/06/2024 1:33 AM Age: 44 years old Clinical indication: Condition or disease; Prior surgery; Surgery date: 6+ months; Surgery type: Hernia, appy, gb; Additional info: Ventral hernia TECHNIQUE: Imaging protocol: Computed tomography of the abdomen and pelvis with contrast. Radiation optimization: All CT scans at this facility use at least one of these dose optimization techniques: automated exposure control; mA and/or kV adjustment per patient size (includes targeted exams where dose is matched to clinical indication); or iterative reconstruction. Contrast material: OMNI 350; Contrast volume: 100 ml; Contrast route: INTRAVENOUS (IV); COMPARISON: CT abdomen pelvis w con* [id number] 01/04/2024 5:42 AM RADIATION DOSE METRICS: Total DLP (mGy-cm): 1339.3 FINDINGS: Lungs: Lingular scarring. Heart: Base of heart is unremarkable as visualized. Liver: Normal. No mass. Gallbladder and bile ducts: Status post cholecystectomy. Pancreas: Normal. No ductal dilation. Spleen: Splenule is noted. Adrenal glands: Normal. No mass. Kidneys and ureters: Benign right renal cyst, measuring less than 1 cm. Stomach and bowel: Minimal diverticulosis without evidence of diverticulitis. Appendix: Status post appendectomy. Intraperitoneal space: Unremarkable. No free air. No significant fluid collection. Vasculature: Unremarkable. No abdominal aortic aneurysm. Lymph nodes: Unremarkable. No enlarged lymph nodes. Urinary bladder: Unremarkable as visualized. Reproductive: Unremarkable as visualized. Bones/joints: Mild scattered degenerative change of the visualized osseous structures. Soft tissues: Midline ventral abdominal wall postsurgical change. At the surgical site, there is a thick rimmed fluid collection which measures 4.9 x 2.9 x 6.3 cm. There is mild surrounding inflammatory change, suggestion of rim enhancement. CT/CT abdomen pelvis w con* [id number] IMPRESSION: 1. Midline ventral abdominal wall postsurgical change with thick rimmed fluid collection. Suggestion of rim enhancement and mild surrounding inflammatory change which can be seen in abscess. Correlate clinically. 2. Additional nonacute findings as above. COMMENTS: Consistent with the [place] [employer]'s Incidental Findings Committee white paper (J Am Nathalie Radiol 2018): Any incidental renal lesion less than 1 cm or classified as too small to characterize, or any incidental cystic renal lesion characterized as simple-appearing, is likely benign. No follow-up imaging is recommended for these lesions per consensus recommendations based on imaging criteria.
[2024-05-06 01:30] LABS: Basophils # 0.1 10^3/uL (0.0-0.1); Basophils % 0.7 %; Eosinophils # 0.3 10^3/uL (0.0-0.8); Eosinophils % 3.5 %; Hematocrit 46.4 % (37-53); Lymphocytes # 3.5 10^3/uL (0.8-4.8); Lymphocytes % 40.7 %; Mean Corpuscular HGB Conc 34.3 g/dL (30-55); Mean Corpuscular Hemoglobin 31.1 pg (27-33); Mean Corpuscular Volume 90.6 fl (82-101); Mean Platelet Volume 9.6 fL (7.4-10.4); Monocytes # 0.9 10^3/uL (0.2-0.9); Monocytes % 10.7 %; Neutrophils # 3.71 10^3/uL (1.8-7.7); Neutrophils % 43.6 %; Nucleated Red Blood Cells % 0 %; Platelet Count 390 10^3/cmm (157-399); Red Blood Count 5.12 10^6/uL (3.85-5.65); Red Cell Distribution Width 12.9 % (12.1-15.1); White Blood Count 8.51 10^3/uL (3.29-11.43)
--- NOTE | 2024-05-06 01:34 | ED_ITS ---
HPI - Abdominal Pain 2 General: Chief Complaint: Abdominal Pain Stated Complaint: abd Pain Time Seen by Provider: 05/06/24 01:06 History of Present Illness: 44-year-old man with a ventral hernia wh o presents with ventral hernia pain by ambulance. He had surgery on it several years back and he says it has been hurting for several months now. However tonight he woke up and the pain was worse. So he called an ambulance. He had some nausea. No vomiting. No fevers. Again this is been present for quite some time but the pain just became worse today. Review of Systems 2 Narrative: Constitutional symptoms: Negative except as documented in HPI. Skin symptoms: Negative except as documented in HPI. Eye symptoms: Negative except as documented in HPI. ENMT symptoms: Negative except as documented in HPI. Respiratory symptoms: Negative except as documented in HPI. Cardiovascular symptoms: Negative except as documented in HPI. Gastrointestinal symptoms: Negative except as documented in HPI. Genitourinary symptoms: Negative except as documented in HPI. Musculoskeletal symptoms: Negative except as documented in HPI. Neurologic symptoms: Negative except as documented in HPI. Psychiatric symptoms: Negative except as documented in HPI. Endocrine symptoms: Negative except as documented in HPI. PFSH ED 2 PFSH: Medical History Peripheral edema Vitamin D deficiency Surgical History History of laparoscopic cholecystectomy History of laparoscopic appendectomy History of umbilical hernia repair Social History Smoking and tobacco/nicotine status: former use of tobacco/nicotine (6-8 cigarettes/day) Quit status (tobacco/nicotine): has quit using Year quit tobacco: 04/2023 Alcohol intake: current Alcohol intake frequency: holidays/special occasions only Alcohol type: beer Substance/Drug Use: never Lives independently: Yes Marital status: service: No Current occupational status: disabled Current gender identity: Male Special judi needs: No Agree to transfusion: Yes Physical Exam 2 Narrative: EXAM NARRATIVE: General: Alert, no acute distress. Skin: Warm, dry. Head: Normocephalic, atraumatic. Neck: Supple, trachea midline. Eye: Extraocular movements are intact. Ears, nose, mouth and throat: mucosa moist. Cardiovascular: Regular, Normal peripheral perfusion. Respiratory: Lungs are clear to auscultation, respirations are non-labored, breath sounds are equal, Symmetrical chest wall expansion. Gastrointestinal: Soft, patient does have a swelling on his ventral hernia site. This is tender to palpation., Non distended, Normal bowel sounds. Musculoskeletal: Normal ROM, no deformity. Neurological: Alert and oriented, No focal neurological deficit observed. Psychiatric: Cooperative, appropriate mood & affect. Course 2 Vital Signs: Vital signs: Vital Signs Temperature 98.2 F 05/06/24 01:05 Pulse Rate 76 05/06/24 03:06 Respiratory Rate 18 05/06/24 03:06 Blood Pressure 145/77 05/06/24 01:05 Pulse Oximetry 95 05/06/24 03:06 Oxygen Delivery Me thod Room Air 05/06/24 03:06 MDM - Abdominal Pain Medical Decision Making Medical decision making: Differential diagnosis including but not limited to and based on the above HPI, review of systems and physical exam: Patient has a hernia there would be concern for incarcerated bowel. CT was ordered and basic lab work. Orders placed to evaluate differential diagnosis based on the above differential, HPI and physical exam Lab Review: Laboratory results were reviewed and interpreted by myself the emergency room physician. Lab work is unremarkable. No leukocytosis. No renal failure. CT of the abdomen pelvis with contrast was ordered: This shows a fluid collection that could be an abscess. However given the chronicity of this and no elevation his white count I do not think this is an abscess but rather a seroma. I think follow-up for this can wait until he follows with a surgeon as an outpatient. This was reviewed and interpreted by myself the emergency room physician. I also reviewed the radiology report. Prolonged emergency room stay: It took an exceptionally long time to get a V rad read on the CT of the patient's abdomen. CT was actually completed early in the stay. I reviewed the patient's medical record. Reexamination: Patient remained stable. Pain is improved with pain medications. No increased work of breathing. No altered mental status. No focal motor deficits. Assessment and plan: Seroma ? IV morphine in the emergency room. - Discharged home - Discussed plan with patient. Answered any questions. - Evaluation and treatment of this problem were appropriate in the emergency setting. Lab Data 05/06/24 01:26 05/06/24 01:26 Labs/Radiology: Radiology Impressions Abdomen/Pelvis CT 05/06/24 01:09 IMPRESSION: 1. Midline ventral abdominal wall postsurgical change with thick rimmed fluid collection. Suggestion of rim enhancement and mild surrounding inflammatory change which can be seen in abscess. Correlate clinically. 2. Additional nonacute findings as above. COMMENTS: Consistent with the [employer]'s Incidental Findings Committee white paper (J Am Nathalie Radiol 2018): Any incidental renal lesion less than 1 cm or classified as too small to characterize, or any incidental cystic renal lesion characterized as simple-appearing, is likely benign. No follow-up imaging is recommended for these lesions per consensus recommendations based on imaging criteria. Laboratory Results WBC 8.51 10^3/uL (3.29-11.43) 05/06/24 01:26 RBC 5.12 10^6/uL (3.85-5.65) 05/06/24 01:26 Hgb 15.90 g/dL (11.27-16.99) 05/06/24 01:26 Hct 46.4 % (37-53) 05/06/24 01:26 MCV 90.6 fl (82-101) 05/06/24 01:26 MCH 31.1 pg (27-33) 05/06/24 01:26 MCHC 34.3 g/dL (30-55) 05/06/24 01:26 RDW 12.9 % (12.1-15.1) 05/06/24 01:26 Plt Count 390 10^3/cmm (157-399) 05/06/24 01:26 MPV 9.6 fL (7.4-10.4) 05/06/24 01:26 Neut % (Auto) 43.6 % 05/06/24 01:26 Lymph % (Auto) 40.7 % 05/06/24 01:26 [place] % (Auto) 10.7 % 05/06/24 01:26 Eos % (Auto) 3.5 % 05/06/24 01:26 Baso % (Auto) 0.7 % 05/06/24 01:26 Neut # (Auto) 3.71 10^3/uL (1.8-7.7) 05/06/24 01:26 Lymph # (Auto) 3.5 10^3/uL (0.8-4.8) 05/06/24 01:26 [place] # (Auto) 0.9 10^3/uL (0.2-0.9) 05/06/24 01:26 Eos # (Auto) 0.3 10^3/uL (0.0-0.8) 05/06/24 01:26 Baso # (Auto) 0.1 10^3/uL (0.0-0.1) 05/06/24 01:26 Nucleated RBC % (auto) 0 % 05/06/24 01:26 Nucleated RBCs # 0.0 /100WBC 05/06/24 01:26 Sodium 136 mmol/L (136-145) 05/06/24 01:26 Potassium 3.9 mmol/L (3.5-5.1) 05/06/24 01:26 Chloride 99 mmol/L (98-107) 05/06/24 01:26 Carbon Dioxide 22 mmol/L (22-29) 05/06/24 01:26 Anion Gap 18.9 (5-19) 05/06/24 01:26 BUN 14 mg/dL (6-20) 05/06/24 01:26 Creatinine 0.8 mg/dL (0.7-1.2) 05/06/24 01:26 GFR Calculation 105.0 mL/min (90-130) 05/06/24 01:26 Glucose 129 mg/dL (65-115) H 05/06/24 01:26 Calculated Osmolality 284 mOsm/kg (285-295) L 05/06/24 01:26 Calcium 9.0 mg/dL (8.5-10.5) 05/06/24 01:26 Total Bilirubin 0.2 mg/dL (0.15-1.2) 05/06/24 01:26 AST 20 U/L (0-40) 05/06/24 01:26 ALT 34 U/L (0-41) 05/06/24 01:26 Alkaline Phosphatase 63 U/L (40-130) 05/06/24 01:26 C-Reactive Protein 3.8 mg/L (0.0-4.9) 05/06/24 01:26 Total Protein 7.5 g/dL (6.6-8.7) 05/06/24 01:26 Albumin 4.3 g/dL (3.5-5.2) 05/06/24 01:26 Globulin 3.2 g/dL (1.3-4.6) 05/06/24 01:26 All radiology interpretation(s) finalized by discharge Discharge Plan Discharge Patient Disposition: Home Clinical Impression: Postoperative seroma Qualifiers: Surgical complication system/body Area: subcutaneous tissue Procedure type: n on-dermatologic Qualified Code(s): L76.34 - Postprocedural seroma of skin and subcutaneous tissue following other procedure Condition: Stable Prescriptions: New hydrocodone-acetaminophen 5-325 mg tablet 1 tab PO Q6H PRN (Reason: pain) Qty: 20 0RF Miralax 17 gram/dose powder 17 g PO DAILY Qty: 510 0RF Rx Instructions: Take 1 scoop daily while taking pain medications. No Action amlodipine 10 mg tablet 10 mg PO DAILY Qty: 30 3RF allopurinol 100 mg tablet See Rx Instructions .ROUTE .COMPLEX Qty: 30 0RF Dose Instruction: TAKE ONE TABLET BY MOUTH DAILY Rx Instructions: TAKE ONE TABLET BY MOUTH DAILY pantoprazole 40 mg tablet,delayed release (DR/EC) See Rx Instructions .ROUTE .COMPLEX Qty: 60 0RF Dose Instruction: TAKE ONE TABLET BY MOUTH TWICE DAILY Rx Instructions: TAKE ONE TABLET BY MOUTH TWICE DAILY lisinopril 20 mg tablet See Rx Instructions .ROUTE .COMPLEX Qty: 60 0RF Dose Instruction: TAKE ONE TABLET BY MOUTH TWICE DAILY Rx Instructions: TAKE ONE TABLET BY MOUTH TWICE DAILY triamterene-hydrochlorothiazid 37.5-25 mg tablet See Rx Instructions .ROUTE .COMPLEX Qty: 30 0RF Dose Instruction: TAKE ONE TABLET BY MOUTH EVERY MORNING NEEDED FOR EDEMA Rx Instructions: TAKE ONE TABLET BY MOUTH EVERY MORNING NEEDED FOR EDEMA ergocalciferol (vitamin D2) 1,250 mcg (50,000 unit) capsule See Rx Instructions .ROUTE .COMPLEX Qty: 4 0RF Dose Instruction: TAKE ONE CAPSULE BY MOUTH EVERY SEVEN DAYS ON THURSDAY Rx Instructions: TAKE ONE CAPSULE BY MOUTH EVERY SEVEN DAYS ON THURSDAY ibuprofen 200 mg Capsule 800 mg PO Q8H PRN (Reason: Pain) Hold Instructions: Resume on 05/13/23. Discharge Orders: Discharge ED (Routine); Ordered 05/06/24 Ordered By: Lakesha Reynolds Referrals: Nile Worrell DO [Physician] - 4-7 days (Please call for follow-up appointment.) Leatha Cifuentes, MAYI [Primary Care Provider] - 4-7 days Discharge Diet: Usual diet Discharge Activity: Increase activity as tolerated Patient Instructions: Seroma (DC), Opioid Safety, Pain Management Activity Restrictions/Additional Instructions: Thank you for choosing [facility] for your healthcare needs today. Please realize this is an emergency room and that we are providing you with a medical screening exam and this may not be complete and all inclusive of all the testing and or work up that you may need to determine your ailment or severity of your illness. You have been screened and evaluated and felt safe for discharge. Health conditions do change or evolve sometimes and as such it is important that you follow up with your Primary Doctor to be re checked, 3-5 days is a general good time frame for follow up. You are always welcome to return to the ED for re assessment if your symptoms are worsening or you have new concerns Coding Level of Care Code ED Cook Apprentice for Janeth Sanchez
[2024-05-06] MEDS: iohexol 350 mg/mL 500 mL Btl (per mL) IV (01:35)
[2024-05-06 01:47] LABS: Alanine Aminotransferase 34 U/L (0-41); Albumin Level 4.3 g/dL (3.5-5.2); Alkaline Phosphatase 63 U/L (40-130); Anion Gap 18.9 (5-19); Aspartate Amino Transferase 20 U/L (0-40); Blood Urea Nitrogen 14 mg/dL (6-20); C Reactive Protein 3.8 mg/L (0.0-4.9); Carbon Dioxide 22 mmol/L (22-29); Chloride 99 mmol/L (98-107); Globulin 3.2 g/dL (1.3-4.6); Glucose 129 mg/dL (65-115); Osmolality Calculated 284 mOsm/kg (285-295); Potassium 3.9 mmol/L (3.5-5.1); Sodium 136 mmol/L (136-145); Total Bilirubin 0.2 mg/dL (0.15-1.2); Total Protein 7.5 g/dL (6.6-8.7)
[2024-05-06 03:01] VITALS: RESP 18
[2024-05-06] MEDS: morphine 4 mg/mL SDV 1 mL IVP (03:01)
[2024-05-06] MEDS: ondansetron 2 mg/ML SDV 2 mL 4 MG IVP (03:01)
[2024-05-06 03:06] VITALS: PULSE 76; RESP 18; O2SAT 95
[2024-05-06 04:29] VITALS: PULSE 78; RESP 16; O2SAT 95
== END 2024-05-06 04:19 | disposition home or self-care (01) ==
PROVIDERS: Emergency Provider Emergency Medicine; PCP Nurse Practitioner Family
DX: L76.34 Postprocedural seroma of skin and subcutaneous tissue following other procedure (principal); Z87.891 Personal history of nicotine dependence
CPT/HCPCS: 74177; 80053; 85025; 86140; 96374; 96375; 99285; J2270; J2405; Q9967

== ENCOUNTER → 2024-05-20 11:00 | Outpatient (BNVA) | payer MEDICARE, MEDICAID, SELFPAY | PROVIDERS: PCP Nurse Practitioner Family; Visit Provider Surgery | DX: R10.9 Unspecified abdominal pain (principal); Z90.49 Acquired absence of other specified parts of digestive tract; Z87.19 Personal history of other diseases of the digestive system | CPT/HCPCS: 99214 ==

== ENCOUNTER 2024-08-26 11:29 | Emergency (ER) | payer MEDICARE, MEDICAID, SELFPAY ==
--- NOTE | 2024-08-26 11:35 | ECG_ITS ---
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 Measurements Intervals [place] Rate: 50 P: 54 NM: 180 QRS: 37 QRSD: 98 T: 55 QT: 411 QTc: 375 Interpretive Statements SINUS BRADYCARDIA POSSIBLE RIGHT VENTRICULAR CONDUCTION DELAY [RSR (QR) IN V1/V2] Compared to ECG 02/08/2024 07:56:07 Sinus rhythm no longer present Electronically Signed On 08-26-2024 20:18:59 CDT by Ryan Edwards M.D. [email or web address]/store/[id number] f
--- NOTE | 2024-08-26 11:35 | XR_ITS ---
WS: [id number] Portable AP upright chest, 08/26/2024 Clinical Data: chest pain Comparison: Portable chest, 02/08/2024. Findings: No nodules, masses or effusions are seen. The heart is normal. The pulmonary vascularity is not increased. No pneumonia or pneumothorax is seen. XR/XR chest 1V portable [id number] Impression: Negative chest.
[2024-08-26 11:41] VITALS: BP 168/91; PULSE 55; RESP 20; TEMP 36.6; O2SAT 98; BMI 48.6
--- NOTE | 2024-08-26 12:54 | ED_ITS ---
HPI - Chest Pain General: Chief Complaint: Chest Pain Stated Complaint: chest pain, sob Time Seen by Provider: 08/26/24 11:36 Related Data Home Medications Medication Instructions Recorded Confirmed allopurinol 100 mg tablet 100 mg PO DAILY 08/26/24 ergocalciferol (vitamin D2) 1,250 50,000 unit PO Q7D 08/26/24 mcg (50,000 unit) capsule lisinopril 20 mg tablet 20 mg PO BID 08/26/24 pantoprazole 40 mg tablet,delayed 40 mg PO BID 08/26/24 release triamterene 37.5 1 tab PO QAM PRN Edema 08/26/24 mg-hydrochlorothiazide 25 mg tablet Previous Rx's Medication Instructions Recorded amlodipine 10 mg tablet 10 mg PO DAILY #30 tabs 07/26/24 Allergies Allergy/AdvReac Type Severity Reaction Status Date / Time No Known Allergies Allergy Verified 05/20/24 11:19 PFSH ED PFSH: Medical History Peripheral edema Vitamin D deficiency Surgical History History of laparoscopic cholecystectomy History of laparoscopic appendectomy History of umbilical hernia repair Social History Smoking and tobacco/nicotine status: former use of tobacco/nicotine (6-8 cigarettes/day) Quit status (tobacco/nicotine): has quit using Year quit tobacco: 04/2023 Alcohol intake: current Alcohol intake frequency: holidays/special occasions only Alcohol type: beer Substance/Drug Use: never Lives independently: Yes Marital status: service: No Current occupational status: disabled Current gender identity: Male Special judi needs: No Agree to transfusion: Yes Course Vital Signs: Vital signs: Vital Signs Temperature 97.8 F 08/26/24 11:41 Pulse Rate 55 L 08/26/24 11:41 Respiratory Rate 20 H 08/26/24 11:41 Blood Pressure 168/91 08/26/24 11:41 Pulse Oximetry 98 08/26/24 11:41 Oxygen Delivery Me thod Room Air 08/26/24 11:41 MDM - Chest Pain Lab Data Radiology Impressions Chest X-Ray 08/26/24 11:35 Impression: Negative chest. Discharge Plan Discharge Condition: Stable Prescriptions: No Action amlodipine 10 mg tablet 10 mg PO DAILY Qty: 30 3RF lisinopril 20 mg tablet 20 mg PO BID allopurinol 100 mg tablet 100 mg PO DAILY pantoprazole 40 mg tablet,delayed release (DR/EC) 40 mg PO BID triamterene-hydrochlorothiazid 37.5-25 mg tablet 1 tab PO QAM PRN (Reason: Edema) ergocalciferol (vitamin D2) 1,250 mcg (50,000 unit) capsule 50,000 unit PO Q7D Referrals: Laetha Cifuentes FNP [Primary Care Provider] - Coding Level of Care Code ED Blow Molding Machine Tender for Chg Laura
--- NOTE | 2024-08-26 12:55 | ED_ITS ---
HPI - Arrhythmia/Palpitations 2 General: Chief Complaint: Chest Pain Stated Complaint: chest pain, sob Time Seen by Provider: 08/26/24 11:36 Source: patient Mode of arrival: ambulatory Limitations: no limitations History of Present Illness: Patient is a 44-year-old male presents to ED today with a complaint of palpitations. He feels like his heart briefly stops and then he will feel a hard beat before it resumes again. He states he has been having these sensations for over the past several months but they seem to be worse over the past week. States he will have 1-2 episodes a day. He states during episodes of palpitations he will feel some discomfort in his chest and some shortness of breath but these completely alleviated after palpitations stopped. He was seen by his primary care provider back in April and had a heart monitor ordered but this never got completed. MD complaint: skipped beats and palpitations Onset (ago): month(s) Duration: intermittent Severity: moderate Associated symptoms: Deny nausea, pre-syncope, syncope or vomiting Related Data Home Medications Medication Instructions Recorded Confirmed allopurinol 100 mg tablet 100 mg PO DAILY 08/26/24 08/26/24 ergocalciferol (vitamin D2) 1,250 50,000 unit PO Q7D 08/26/24 08/26/24 mcg (50,000 unit) capsule lisinopril 20 mg tablet 20 mg PO BID 08/26/24 08/26/24 pantoprazole 40 mg tablet,delayed 40 mg PO BID 08/26/24 08/26/24 release triamterene 37.5 1 tab PO QAM PRN Edema 08/26/24 08/26/24 mg-hydrochlorothiazide 25 mg tablet Previous Rx's Medication Instructions Recorded amlodipine 10 mg tablet 10 mg PO DAILY #30 tabs 07/26/24 Allergies Allergy/AdvReac Type Severity Reaction Status Date / Time No Known Allergies Allergy Verified 05/20/24 11:19 Review of Systems 2 Const: Denies: fever(s), chills, body aches, fatigue or malaise Card: Reports: chest pain (during feelings of palpitations-otherwise none) and palpitations; Denies: edema, swelling of feet/ankles, lightheadedness, syncope, pre-syncope, dyspnea on exertion, orthopnea, leg pain with exertion or acrocyanosis Resp: Reports: dyspnea (during episodes of palpitations-otherwise none); Denies: productive cough, non-productive cough or chest congestion GI: Denies: abdominal pain, nausea, vomiting or diarrhea : Denies: flank pain, difficulty urinating, dysuria, urinary frequency, urinary urgency or urinary hesitancy Musc: Denies: neck pain, back pain, extremity pain, extremity swelling, joint pain or joint swelling Skin/Breast: Denies: rash Neuro: Denies: headache(s), numbness in extremities, weakness in extremities, sensory changes, lack of coordination or dizziness PFSH ED 2 PFSH: Medical History Peripheral edema Vitamin D deficiency Surgical History History of laparoscopic cholecystectomy History of laparoscopic appendectomy History of umbilical hernia repair Social History Smoking and tobacco/nicotine status: former use of tobacco/nicotine (6-8 cigarettes/day) Quit status (tobacco/nicotine): has quit using Year quit tobacco: 04/2023 Alcohol intake: current Alcohol intake frequency: holidays/special occasions only Alcohol type: beer Substance/Drug Use: never Lives independently: Yes Marital status: service: No Current occupational status: disabled Current gender identity: Male Special judi needs: No Agree to transfusion: Yes Physical Exam 2 Const: COMMON NORMALS: no acute distress, patient oriented x3, no limitations and alert GENERAL APPEARANCE: cooperative NUTRITIONAL APPEARANCE: obese morbidly obese (BMI 48.7) ORIENTATION/CONSCIOUSNESS: Yes awake, Yes oriented to person, Yes oriented to place and Yes oriented to time Neck/C-Spine: COMMON NORMALS: no JVD and No carotid bruits GENERAL: Yes normal visual inspection Chest: COMMONS NORMALS: normal inspection of the chest and normal palpation of entire chest wall Resp: COMMON NORMALS: normal respiratory effort and clear to auscultation bilaterally AUSCULTATION: clear to auscultation bilaterally Cardio: COMMON NORMALS: no JVD and regular rhythm RATE: bradycardic R HYTHM: regular rhythm Extremity: COMMON NORMALS: capillary refill normal, no clubbing, cyanosis or edema, no calf tenderness and no pedal edema GENERAL: Yes normal exam except as noted Neuro: COMMON NORMALS: patient oriented x3, moves all extremities, no focal motor deficits, no sensory deficits noted and gait normal S ENSORIUM/ORIENTATION: Yes alert, Yes oriented to person, Yes oriented to place and Yes oriented to time Course 2 Vital Signs: Vital signs: Vital Signs Temperature 97.8 F 08/26/24 11:41 Pulse Rate 55 L 08/26/24 11:41 Respiratory Rate 16 08/26/24 13:09 Blood Pressure 164/78 08/26/24 13:09 Pulse Oximetry 98 08/26/24 13:09 Oxygen Delivery Me thod Room Air 08/26/24 13:09 MDM - Arrhythmia/Palpitations Medical Decision Making Patient appears in no acute distress. His ED workup here is unremarkable. Baseline troponin is normal. TSH is normal. EKG is nonischemic. CXR is negative. He is here for chronic palpitations. Has been seen for these previously. Will attempt to set him up with an outpatient Holter monitor as he was supposed to have one of these previously. He can continue to follow-up with primary care. I thought of starting him on a beta-avtar for the palpitations however he has baseline bradycardia so we will hold off on this. Return precautions given. Medical Records I reviewed the patient's medical records. Lab Data I reviewed the patient's lab results. 08/26/24 12:44 08/26/24 12:44 Radiology Impressions Chest X-Ray 08/26/24 11:35 Impression: Negative chest. Laboratory Results WBC 6.64 10^3/uL (3.29-11.43) 08/26/24 12:44 RBC 4.98 10^6/uL (3.85-5.65) 08/26/24 12:44 Hgb 15.60 g/dL (11.27-16.99) 08/26/24 12:44 Hct 45.4 % (37-53) 08/26/24 12:44 MCV 91.2 fl (82-101) 08/26/24 12:44 MCH 31.3 pg (27-33) 08/26/24 12:44 MCHC 34.4 g/dL (30-55) 08/26/24 12:44 RDW 13.2 % (12.1-15.1) 08/26/24 12:44 Plt Count 316 10^3/cmm (157-399) 08/26/24 12:44 MPV 9.3 fL (7.4-10.4) 08/26/24 12:44 Neut % (Auto) 48.7 % 08/26/24 12:44 Lymph % (Auto) 34.8 % 08/26/24 12:44 [place] % (Auto) 10.1 % 08/26/24 12:44 Eos % (Auto) 4.4 % 08/26/24 12:44 Baso % (Auto) 0.6 % 08/26/24 12:44 Neut # (Auto) 3.24 10^3/uL (1.8-7.7) 08/26/24 12:44 Lymph # (Auto) 2.3 10^3/uL (0.8-4.8) 08/26/24 12:44 [place] # (Auto) 0.7 10^3/uL (0.2-0.9) 08/26/24 12:44 Eos # (Auto) 0.3 10^3/uL (0.0-0.8) 08/26/24 12:44 Baso # (Auto) 0.0 10^3/uL (0.0-0.1) 08/26/24 12:44 Nucleated RBC % (auto) 0 % 08/26/24 12:44 Nucleated RBCs # 0.0 /100WBC 08/26/24 12:44 Sodium 137 mmol/L (136-145) 08/26/24 12:44 Potassium 4.2 mmol/L (3.5-5.1) 08/26/24 12:44 Chloride 101 mmol/L (98-107) 08/26/24 12:44 Carbon Dioxide 26 mmol/L (22-29) 08/26/24 12:44 Anion Gap 14.2 (5-19) 08/26/24 12:44 BUN 9 mg/dL (6-20) 08/26/24 12:44 Creatinine 0.9 mg/dL (0.7-1.2) 08/26/24 12:44 GFR Calculation 91.7 mL/min (90-130) 08/26/24 12:44 Glucose 108 mg/dL (65-115) 08/26/24 12:44 Calculated Osmolality 283 mOsm/kg (285-295) L 08/26/24 12:44 Calcium 9.4 mg/dL (8.5-10.5) 08/26/24 12:44 Total Bilirubin 0.6 mg/dL (0.15-1.2) 08/26/24 12:44 AST 37 U/L (0-40) 08/26/24 12:44 ALT 56 U/L (0-41) H 08/26/24 12:44 Alkaline Phosphatase 61 U/L (40-130) 08/26/24 12:44 Troponin T Baseline 9 ng/L (0-15) 08/26/24 12:44 Total Protein 7.1 g/dL (6.6-8.7) 08/26/24 12:44 Albumin 4.4 g/dL (3.5-5.2) 08/26/24 12:44 Globulin 2.7 g/dL (1.3-4.6) 08/26/24 12:44 TSH 1.51 uIU/mL (0.27-4.20) 08/26/24 12:44 All radiology interpretation(s) finalized by discharge Discharge Plan Discharge Patient Disposition: Home Clinical Impression: Heart palpitations Condition: Stable Prescriptions: No Action amlodipine 10 mg tablet 10 mg PO DAILY Qty: 30 3RF lisinopril 20 mg tablet 20 mg PO BID allopurinol 100 mg tablet 100 mg PO DAILY pantoprazole 40 mg tablet,delayed release (DR/EC) 40 mg PO BID triamterene-hydrochlorothiazid 37.5-25 mg tablet 1 tab PO QAM PRN (Reason: Edema) ergocalciferol (vitamin D2) 1,250 mcg (50,000 unit) capsule 50,000 unit PO Q7D Discharge Orders: Discharge ED (Routine); Ordered 08/26/24 Ordered By: Jenny Horn Referrals: Leatha Cifeuntes FNP [Primary Care Provider] - Patient Instructions: Heart Palpitations (DC) Activity Restrictions/Additional Instructions: As we discussed, I will attempt to write you for a Holter monitor from the emergency department. Case management should reach out to you next week to help set you up with this. In the meantime I like you to follow-up with your primary care provider. She may also be able to help set you up with the monitor if there are any issues from the emergency department. Coding Level of Care Code ED Credit Adjuster for Janeth Sanchez
[2024-08-26 13:00] LABS: Basophils % 0.6 %; Eosinophils # 0.3 10^3/uL (0.0-0.8); Eosinophils % 4.4 %; Hematocrit 45.4 % (37-53); Lymphocytes # 2.3 10^3/uL (0.8-4.8); Lymphocytes % 34.8 %; Mean Corpuscular HGB Conc 34.4 g/dL (30-55); Mean Corpuscular Hemoglobin 31.3 pg (27-33); Mean Corpuscular Volume 91.2 fl (82-101); Mean Platelet Volume 9.3 fL (7.4-10.4); Monocytes # 0.7 10^3/uL (0.2-0.9); Monocytes % 10.1 %; Neutrophils # 3.24 10^3/uL (1.8-7.7); Neutrophils % 48.7 %; Nucleated Red Blood Cells % 0 %; Platelet Count 316 10^3/cmm (157-399); Red Blood Count 4.98 10^6/uL (3.85-5.65); Red Cell Distribution Width 13.2 % (12.1-15.1); White Blood Count 6.64 10^3/uL (3.29-11.43)
[2024-08-26 13:09] VITALS: BP 164/78; RESP 16; O2SAT 98
[2024-08-26 13:23] LABS: Alanine Aminotransferase 56 U/L (0-41); Albumin Level 4.4 g/dL (3.5-5.2); Alkaline Phosphatase 61 U/L (40-130); Anion Gap 14.2 (5-19); Aspartate Amino Transferase 37 U/L (0-40); Blood Urea Nitrogen 9 mg/dL (6-20); Calcium 9.4 mg/dL (8.5-10.5); Carbon Dioxide 26 mmol/L (22-29); Chloride 101 mmol/L (98-107); Creatinine Clr Calc Pharmacy 184.6738; Globulin 2.7 g/dL (1.3-4.6); Glomerular Filtration Rate 91.7 mL/min (90-130); Glucose 108 mg/dL (65-115); Osmolality Calculated 283 mOsm/kg (285-295); Potassium 4.2 mmol/L (3.5-5.1); Sodium 137 mmol/L (136-145); Total Bilirubin 0.6 mg/dL (0.15-1.2); Total Protein 7.1 g/dL (6.6-8.7)
[2024-08-26 13:28] LABS: Troponin(5th) Baseline 9 ng/L (0-15)
[2024-08-26 14:08] LABS: Thyroid Stimulating Hormone 1.51 uIU/mL (0.27-4.20)
--- NOTE | 2024-08-26 14:11 | ECG_ITS ---
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 Measurements Intervals [place] Rate: 51 P: 49 PA: 189 QRS: 38 QRSD: 98 T: 52 QT: 428 QTc: 395 Interpretive Statements SINUS BRADYCARDIA POSSIBLE RIGHT VENTRICULAR CONDUCTION DELAY [RSR (QR) IN V1/V2] Compared to ECG 08/26/2024 11:33:51 No significant changes Electronically Signed On 08-26-2024 20:27:04 CDT by Ryan Edwards M.D. [email or web address] [facility]Serviceshol[email or web address]/store/OM/[id number]
[2024-08-26 14:23] VITALS: BP 153/65; RESP 18; O2SAT 97
[2024-08-26 14:24] VITALS: BP 153/65; PULSE 53; O2SAT 98
--- NOTE | 2024-08-29 08:10 | DCPLANNER ---
message heart for holter moniter
== END 2024-08-26 14:25 | disposition home or self-care (01) ==
PROVIDERS: Emergency Provider Physician Assistant; PCP Nurse Practitioner Family
DX: R00.2 Palpitations (principal); Z87.891 Personal history of nicotine dependence
CPT/HCPCS: 36415; 71045; 80053; 84443; 84484; 85025; 93005; 99285

== ENCOUNTER → 2024-09-12 10:04 | Outpatient (BNVA) | payer MEDICARE, MEDICAID, SELFPAY | PROVIDERS: PCP Nurse Practitioner Family; Visit Provider Internal Medicine Cardiovascular Disease | DX: R00.2 Palpitations (principal); I49.1 Atrial premature depolarization; I49.3 Ventricular premature depolarization | CPT/HCPCS: 93242 ==

== ENCOUNTER → 2024-11-28 09:46 | Outpatient (BNVA) | payer MEDICARE, MEDICAID, SELFPAY | PROVIDERS: PCP Nurse Practitioner Family; Visit Provider Nurse Practitioner Family | DX: I10 Essential (primary) hypertension (principal); R73.9 Hyperglycemia, unspecified; E55.9 Vitamin D deficiency, unspecified | CPT/HCPCS: 80053; 80061; 82306; 82607; 83036; 83735; 84443; 84550; 85025 ==

== ENCOUNTER 2025-02-13 13:08 | Emergency (ER) | payer MEDICARE, MEDICAID, SELFPAY ==
[2025-02-13 13:12] VITALS: BP 168/96; PULSE 97; TEMP 36.7; O2SAT 94; BMI 48.6
[2025-02-13 13:46] LABS: Basophils # 0.1 10^3/uL (0.0-0.1); Basophils % 0.6 %; Eosinophils # 0.3 10^3/uL (0.0-0.8); Eosinophils % 3.6 %; Lymphocytes # 2.6 10^3/uL (0.8-4.8); Lymphocytes % 30.6 %; Mean Corpuscular HGB Conc 33.6 g/dL (30-55); Mean Corpuscular Hemoglobin 31.3 pg (27-33); Mean Corpuscular Volume 93.3 fl (82-101); Mean Platelet Volume 9.4 fL (7.4-10.4); Monocytes # 0.8 10^3/uL (0.2-0.9); Monocytes % 9.7 %; Neutrophils # 4.65 10^3/uL (1.8-7.7); Neutrophils % 54.1 %; Nucleated Red Blood Cells % 0 %; Platelet Count 360 10^3/cmm (157-399); Red Blood Count 5.04 10^6/uL (3.85-5.65); Red Cell Distribution Width 13.7 % (12.1-15.1); White Blood Count 8.59 10^3/uL (3.29-11.43)
--- NOTE | 2025-02-13 13:54 | W.ED.ABDPA2 ---
HPI - Abdominal Pain General: Chief Complaint: Abdominal Pain Stated Complaint: abd pain Time Seen by Provider: 02/13/25 13:20 History of Present Illness: 44-year-old male presents emergency room with complaint of abdominal pain for the last few months. Patient complaining of pain in the midline of his abdomen. He has previously had a hernia repair as undergone some revisions of postoperative seroma this was several months ago he is concerned it is inflamed again he has been having some loose stools denies any medic easy melena hematemesis or coffee-ground emesis he has had some dry heaving. No dysuria urgency or frequency no hematuria no flank pain Associated Symptoms: Reports nausea and vomiting; Denies chills, dysuria, fever(s), hematochezia, hematemesis and melena Related Data Home Medications ?Medication ?Instructions ?Recorded ?Confirmed allopurinol 100 mg tablet 100 mg PO DAILY 02/13/25 02/13/25 cyclobenzaprine 10 mg tablet 10 mg PO TID PRN Muscle Spasm 02/13/25 02/13/25 ergocalciferol (vitamin D2) 1,250 1,250 mcg PO Q7D 02/13/25 02/13/25 mcg (50,000 unit) capsule lisinopril 20 mg tablet 20 mg PO BID 02/13/25 02/13/25 pantoprazole 40 mg tablet,delayed 40 mg PO BID 02/13/25 02/13/25 release triamterene 37.5 1 tab PO QAM 02/13/25 02/13/25 mg-hydrochlorothiazide 25 mg tablet Previous Rx's ?Medication ?Instructions ?Recorded amlodipine 10 mg tablet 10 mg PO DAILY #30 tabs 11/28/24 Allergies Allergy/AdvReac Type Severity Reaction Status Date / Time No Known Allergies Allergy Verified 02/13/25 13:16 Review of Systems Const: Denies: fever(s) or chills Card: Denies: chest pain Resp: Denies: dyspnea GI: Reports: abdominal pain, nausea and vomiting; Denies: hematemesis, hematochezia, melena or mucus in stool : Denies: dysuria, urinary frequency or urinary urgency Musc: Denies: neck pain or back pain Skin/Breast: Denies: rash PFSH ED PFSH: Medical History Peripheral edema Vitamin D deficiency Surgical History History of laparoscopic cholecystectomy History of laparoscopic appendectomy History of umbilical hernia repair Social History Smoking and tobacco/nicotine status: never used tobacco/nicotine Quit status (tobacco/nicotine): has quit using Year quit tobacco: 04/2023 Alcohol intake: current Alcohol intake frequency: holidays/special occasions only Alcohol type: beer Substance/Drug Use: never Lives independently: Yes Marital status: service: No Current occupational status: disabled Current gender identity: Male Special judi needs: No Agree to transfusion: Yes Physical Exam Const: GENERAL APPEARANCE: cooperative and comfortable ORIENTATION/CONSCIOUSNESS: Yes awake, Yes oriented to person, Yes oriented to place and Yes oriented to time HENMT: COMMON NORMALS: normocephalic, atraumatic and hearing grossly normal bilaterally HEAD & SCALP: normocephalic and atraumatic Resp: COMMON NORMALS: normal respiratory effort, No retractions, No use of accessory muscles and clear to auscultation bilaterally AUSCULTATION: clear to auscultation bilaterally Cardio: COMMON NORMALS: regular rate, regular rhythm and No murmurs present (Cardio) RATE: regular rate RHYTHM: regular rhythm GI: COMMON NORMALS: No hepatosplenomegaly present AUSCULTATION: Yes normoactive bowel sounds PALPATION: Yes Tenderness to palpation present (GI), No Guarding due to palpation present (GI) and Yes No hepatosplenomegaly present Extremity: COMMON NORMALS: normal to inspection, capillary refill normal, no clubbing, cyanosis or edema, no calf tenderness and no pedal edema Neuro: SENSORIUM/ORIENTATION: Yes oriented to person, Yes oriented to place and Yes oriented to time Skin: COMMON NORMALS: no rashes or lesions noted GENERAL SKIN EXAM: no rashes or lesions noted Course Vital Signs: Vital signs: Vital Signs Temperature 98.1 F 02/13/25 13:12 Pulse Rate 91 02/13/25 16:34 Blood Pressure 152/84 02/13/25 16:34 Pulse Oximetry 99 02/13/25 16:34 Oxygen Delivery Me thod Room Air 02/13/25 13:12 MDM - Abdominal Pain Medical Decision Making CT completed shows a slightly smaller fluid collection along the hernia repair than before there is possibility of some fat necrosis. Patient is well-controlled at this time incidental finding of a left renal lesion but patient states he already knew about that and has had follow-up and monitoring. Will discharge patient home have him follow-up with the surgery clinic. Follow-up with his primary care doctor for further ongoing monitoring of the renal lesion Lab Data 02/13/25 13:18 02/13/25 13:18 Labs/Radiology: Radiology Impressions Abdomen/Pelvis CT 02/13/25 13:59 IMPRESSION: 1. Hepatic steatosis. 2. There is a questionable left kidney midpole medial/posterior lesion measuring 3.2 x 4.2 cm. (). MRI of the kidney with IV contrast for further evaluation is advised. 3. Chronic fluid density area at the midline ventral abdominal wall postsurgical site. It is smaller on today's study. COMMENTS: Consistent with the [employer]'s Incidental Findings Committee white paper (J Am Nathalie Radiol 2018): Any incidental renal lesion less than 1 cm or classified as too small to characterize, or any incidental cystic renal lesion characterized as simple-appearing, is likely benign. No follow-up imaging is recommended for these lesions per consensus recommendations based on imaging criteria. Laboratory Results WBC 8.59 10^3/uL (3.29-11.43) 02/13/25 13:18 RBC 5.04 10^6/uL (3.85-5.65) 02/13/25 13:18 Hgb 15.80 g/dL (11.27-16.99) 02/13/25 13:18 Hct 47.0 % (37-53) 02/13/25 13:18 MCV 93.3 fl (82-101) 02/13/25 13:18 MCH 31.3 pg (27-33) 02/13/25 13:18 MCHC 33.6 g/dL (30-55) 02/13/25 13:18 RDW 13.7 % (12.1-15.1) 02/13/25 13:18 Plt Count 360 10^3/cmm (157-399) 02/13/25 13:18 MPV 9.4 fL (7.4-10.4) 02/13/25 13:18 Neut % (Auto) 54.1 % 02/13/25 13:18 Lymph % (Auto) 30.6 % 02/13/25 13:18 [place] % (Auto) 9.7 % 02/13/25 13:18 Eos % (Auto) 3.6 % 02/13/25 13:18 Baso % (Auto) 0.6 % 02/13/25 13:18 Neut # (Auto) 4.65 10^3/uL (1.8-7.7) 02/13/25 13:18 Lymph # (Auto) 2.6 10^3/uL (0.8-4.8) 02/13/25 13:18 [place] # (Auto) 0.8 10^3/uL (0.2-0.9) 02/13/25 13:18 Eos # (Auto) 0.3 10^3/uL (0.0-0.8) 02/13/25 13:18 Baso # (Auto) 0.1 10^3/uL (0.0-0.1) 02/13/25 13:18 Nucleated RBC % (auto) 0 % 02/13/25 13:18 Nucleated RBCs # 0.0 /100WBC 02/13/25 13:18 Sodium 138 mmol/L (136-145) 02/13/25 13:18 Potassium 4.2 mmol/L (3.5-5.1) 02/13/25 13:18 Chloride 101 mmol/L (98-107) 02/13/25 13:18 Carbon Dioxide 25 mmol/L (22-29) 02/13/25 13:18 Anion Gap 16.2 (5-19) 02/13/25 13:18 BUN 10 mg/dL (6-20) 02/13/25 13:18 Creatinine 0.8 mg/dL (0.7-1.2) 02/13/25 13:18 GFR Calculation 105.0 mL/min (90-130) 02/13/25 13:18 Glucose 133 mg/dL (65-115) H 02/13/25 13:18 Calculated Osmolality 287 mOsm/kg (285-295) 02/13/25 13:18 Calcium 9.3 mg/dL (8.5-10.5) 02/13/25 13:18 Total Bilirubin 0.4 mg/dL (0.15-1.2) 02/13/25 13:18 AST 26 U/L (0-40) 02/13/25 13:18 ALT 39 U/L (0-41) 02/13/25 13:18 Alkaline Phosphatase 67 U/L (40-130) 02/13/25 13:18 Total Protein 7.9 g/dL (6.6-8.7) 02/13/25 13:18 Albumin 4.4 g/dL (3.5-5.2) 02/13/25 13:18 Globulin 3.5 g/dL (1.3-4.6) 02/13/25 13:18 Lipase 18 U/L (13-60) 02/13/25 13:18 Urine Color Yellow (Yellow) 02/13/25 13:24 Urine Appearance Clear (CLEAR) 02/13/25 13:24 Urine pH 7.0 (5-7) 02/13/25 13:24 Ur Specific [place] 1.020 (1.005-1.030) 02/13/25 13:24 Urine Protein 1+ (Negative) A 02/13/25 13:24 Urine Glucose (UA) Negative (Normal) 02/13/25 13:24 Urine Ketones Trace (Negative) 02/13/25 13:24 Urine Blood Negative (Negative) 02/13/25 13:24 Urine Nitrate Negative (Negative) 02/13/25 13:24 Urine Bilirubin Negative (Negative) 02/13/25 13:24 Urine Urobilinogen 1.0 mg/dL (Negative) 02/13/25 13:24 Ur Leukocyte Esterase Negative (Negative) 02/13/25 13:24 Urine RBC 0-2 /hpf (0-2) 02/13/25 13:24 Urine WBC 6-10 /hpf (0-5) 02/13/25 13:24 Ur Squamous Epith Cells 0-5 /hpf (0-5) 02/13/25 13:24 Amorphous Sediment Not Reportable 02/13/25 13:24 Urine Bacteria None seen /hpf (NONE) 02/13/25 13:24 Hyaline Casts 26.47 /lpf 02/13/25 13:24 All radiology interpretation(s) finalized by discharge Discharge Plan Discharge Patient Disposition: Home Clinical Impression: Chronic abdominal pain, Lesion of left [place] kidney Abdominal wall seroma Qualifiers: Encounter type: sequela Qualified Code(s): S30.1XXS - Contusion of abdominal wall, sequela Condition: Stable Prescriptions: No Action amlodipine 10 mg tablet 10 mg PO DAILY Qty: 30 5RF cyclobenzaprine 10 mg tablet 10 mg PO TID PRN (Reason: Muscle Spasm) Rx Instructions: TAKE ONE TABLET BY MOUTH THREE TIMES DAILY NEEDED FOR MUSCLE SPASM lisinopril 20 mg tablet 20 mg PO BID Rx Instructions: TAKE ONE TABLET BY MOUTH TWICE DAILY allopurinol 100 mg tablet 100 mg PO DAILY Rx Instructions: TAKE ONE TABLET BY MOUTH DAILY pantoprazole 40 mg tablet,delayed release (DR/EC) 40 mg PO BID Rx Instructions: TAKE ONE TABLET BY MOUTH TWICE DAILY triamterene-hydrochlorothiazid 37.5-25 mg tablet 1 tab PO QAM Rx Instructions: TAKE ONE TABLET BY MOUTH EVERY MORNING ergocalciferol (vitamin D2) 1,250 mcg (50,000 unit) capsule 1,250 mcg PO Q7D Rx Instructions: TAKE ONE CAPSULE BY MOUTH EVERY SEVEN DAYS ON THURSDAY Discharge Orders: Discharge ED (Routine); Ordered 02/13/25 Ordered By: Colt Amaya Referrals: Leatha Cifuentes FNP [Primary Care Provider] - Discharge Diet: Usual diet Discharge Activity: Resume usual activity Patient Instructions: Abdominal Pain (ED), Opioid Safety, Pain Management Activity Restrictions/Additional Instructions: Thank you for choosing [facility] for your healthcare needs today. It is very important that you follow up as instructed or that you return to the Emergency Department should you have concerns or if your condition changes or worsens in any way. You are seen in the emergency room with complaints of midline abdominal pain in the area of your previous incision repair. CT shows a fluid collection that had been seen previously is still present but has decreased in size. Will have you follow-up with surgery clinic. staffing manager will make arrangements. You are also noted to have an incidental finding of a lesion on the left kidney. This could not be fully characterized on the scan done today and you should have a follow-up imaging through your primary care provider. Print Language: Dominican Coding Level of Care Code ED [employer] Analysis Technician for Janeth Sanchez
--- NOTE | 2025-02-13 13:59 | CTR_ITS ---
PROCEDURE INFORMATION: Exam: CT Abdomen And Pelvis With Contrast Exam date and time: 02/13/2025 2:09 PM Age: 44 years old Clinical indication: Abdominal pain; Localized; Lower; Prior surgery; Surgery date: 6+ months; Surgery type: Hernia, gb; Additional info: Abd pain TECHNIQUE: Imaging protocol: Computed tomography of the abdomen and pelvis with contrast. Radiation optimization: All CT scans at this facility use at least one of these dose optimization techniques: automated exposure control; mA and/or kV adjustment per patient size (includes targeted exams where dose is matched to clinical indication); or iterative reconstruction. Contrast material: OMNI 350; Contrast volume: 100 ml; Contrast route: INTRAVENOUS (IV); COMPARISON: CT abdomen pelvis w con* [id number] 05/06/2024 1:33 AM RADIATION DOSE METRICS: Total DLP (mGy-cm): 2511 FINDINGS: Liver: Hepatic steatosis. Gallbladder and biliary ducts: Post cholecystectomy changes are seen. Pancreas: Normal. No ductal dilation. Spleen: Normal. No splenomegaly. Adrenal glands: Normal. No mass. Kidneys and ureters: There is a questionable left kidney midpole medial/posterior lesion measuring 3.2 x 4.2 cm. (). There is a stable right kidney midpole anterior hypodense lesion measuring 1.4 x 1.7 cm. Stomach and bowel: No small bowel or colonic loop dilatation. Appendix: Post appendectomy changes. Intraperitoneal space: Fluid density area at the abdominal midline is smaller measuring 4.8 x 6.3 cm. It has a fatty component suggesting fat necrosis. No abdominal wall hernia is seen. Vasculature: Unremarkable. No abdominal aortic aneurysm. Lymph nodes: Unremarkable. No enlarged lymph nodes. Urinary bladder: Unremarkable as visualized. Reproductive: Unremarkable as visualized. Bones/joints: Unremarkable. No acute fracture. Soft tissues: See Intraperitoneal space finding. CT/CT abdomen pelvis w con* [id number] IMPRESSION: 1. Hepatic steatosis. 2. There is a questionable left kidney midpole medial/posterior lesion measuring 3.2 x 4.2 cm. (). MRI of the kidney with IV contrast for further evaluation is advised. 3. Chronic fluid density area at the midline ventral abdominal wall postsurgical site. It is smaller on today's study. COMMENTS: Consistent with the [employer]'s Incidental Findings Committee white paper (J Am Nathalie Radiol 2018): Any incidental renal lesion less than 1 cm or classified as too small to characterize, or any incidental cystic renal lesion characterized as simple-appearing, is likely benign. No follow-up imaging is recommended for these lesions per consensus recommendations based on imaging criteria.
[2025-02-13 14:06] LABS: Alanine Aminotransferase 39 U/L (0-41); Albumin Level 4.4 g/dL (3.5-5.2); Alkaline Phosphatase 67 U/L (40-130); Anion Gap 16.2 (5-19); Aspartate Amino Transferase 26 U/L (0-40); Blood Urea Nitrogen 10 mg/dL (6-20); Calcium 9.3 mg/dL (8.5-10.5); Carbon Dioxide 25 mmol/L (22-29); Chloride 101 mmol/L (98-107); Globulin 3.5 g/dL (1.3-4.6); Glucose 133 mg/dL (65-115); Lipase 18 U/L (13-60); Osmolality Calculated 287 mOsm/kg (285-295); Potassium 4.2 mmol/L (3.5-5.1); Sodium 138 mmol/L (136-145); Total Bilirubin 0.4 mg/dL (0.15-1.2); Total Protein 7.9 g/dL (6.6-8.7)
[2025-02-13] MEDS: iohexol 350 mg/mL 500 mL Btl (per mL) IV (14:14)
[2025-02-13] MEDS: ondansetron 2 mg/ML SDV 2 mL 4 MG IVP (15:34)
[2025-02-13] MEDS: ketorolac 30 mg/mL INJ IVP (15:34)
[2025-02-13 15:52] LABS: Bilirubin Urine Negative (Negative); Blood Urine Negative (Negative); Glucose Urine UA Negative (Normal); Ketones Urine Trace (Negative); Leukocyte Esterase Urine Negative (Negative); Nitrate Urine Negative (Negative); Protein Urine 1+ (Negative); Urine Appearance Clear (CLEAR); Urine Color Yellow (Yellow)
[2025-02-13 15:58] LABS: Add Urine Microscopic? YES; Bacteria Urine None Seen /hpf; Hyaline Casts Urine 26.47 /lpf; RBC Urine 0-2 /hpf (0-2); Squamous Epithelial Cell Urine 0-5 /hpf (0-5)
[2025-02-13 16:01] VITALS: BP 152/84; PULSE 91; O2SAT 99
[2025-02-13 16:14] LABS: UA Slide Review UA Slide Review Perf
[2025-02-13 16:16] LABS: Add Urine Culture? No
[2025-02-13 16:34] VITALS: BP 152/84; PULSE 91; O2SAT 99
--- NOTE | 2025-02-13 17:37 | DCPLANNER ---
messaged gen surg for er f/u
== END 2025-02-13 16:55 | disposition home or self-care (01) ==
PROVIDERS: Emergency Medicine; Emergency Provider Family Medicine; PCP Nurse Practitioner Family
DX: R10.9 Unspecified abdominal pain (principal); N28.9 Disorder of kidney and ureter, unspecified; S30.1XXS Contusion of abdominal wall, sequela; X58.XXXS Exposure to other specified factors, sequela; Z87.891 Personal history of nicotine dependence
CPT/HCPCS: 36415; 74177; 80053; 81001; 83690; 85025; 96374; 96375; 99285; J1885; J2405

== ENCOUNTER 2025-04-09 11:07 | Emergency (ER) | payer MEDICARE, MEDICAID, SELFPAY ==
[2025-04-09 11:16] VITALS: BP 161/84; PULSE 83; TEMP 36.7; O2SAT 97
--- NOTE | 2025-04-09 11:32 | W.ED.ABDPA2 ---
HPI - Abdominal Pain General: Chief Complaint: Abdominal Pain Stated Complaint: upper abd pain, n/v, dizzy Time Seen by Provider: 04/09/25 11:29 Source: patient Mode of arrival: ambulatory Limitations: no limitations History of Present Illness: 45-year-old male states that he has been having right upper quadrant abdominal pain over the last 3 weeks. He states the pains been a sharp pain has been worse with movement and eating has had some nausea. Denies any fever Associated Symptoms: Reports nausea; Denies chills, diarrhea, dysuria and fever(s) Related Data Home Medications ?Medication ?Instructions ?Recorded ?Confirmed allopurinol 100 mg tablet 100 mg PO DAILY 02/13/25 04/09/25 cyclobenzaprine 10 mg tablet 10 mg PO TID PRN Muscle Spasm 02/13/25 04/09/25 ergocalciferol (vitamin D2) 1,250 1,250 mcg PO Q7D 02/13/25 04/09/25 mcg (50,000 unit) capsule lisinopril 20 mg tablet 20 mg PO BID 02/13/25 04/09/25 triamterene 37.5 1 tab PO QAM 02/13/25 04/09/25 mg-hydrochlorothiazide 25 mg tablet Previous Rx's ?Medication ?Instructions ?Recorded amlodipine 10 mg tablet 10 mg PO DAILY #30 tabs 11/28/24 pantoprazole 40 mg tablet,delayed 40 mg PO BID #60 tabs 03/02/25 release hydrocodone 5 mg-acetaminophen 325 1 tab PO Q6H PRN pain #14 tabs 04/09/25 mg tablet ondansetron 4 mg disintegrating 4 mg PO Q6H PRN nausea and 04/09/25 tablet vomiting #14 tabs Allergies Allergy/AdvReac Type Severity Reaction Status Date / Time No Known Allergies Allergy Verified 04/09/25 11:20 Review of Systems Const: Denies: fever(s), chills, body aches or change in appetite ENMT: Denies: throat pain or dental pain Card: Denies: chest pain Resp: Denies: dyspnea GI: Reports: abdominal pain and nausea; Denies: diarrhea : Denies: dysuria Musc: Denies: neck pain or back pain Skin/Breast: Denies: rash Neuro: Denies: headache(s) PFSH ED PFSH: Medical History Peripheral edema Vitamin D deficiency Surgical History History of laparoscopic cholecystectomy History of laparoscopic appendectomy History of umbilical hernia repair Social History Smoking and tobacco/nicotine status: never used tobacco/nicotine Quit status (tobacco/nicotine): has quit using Year quit tobacco: 04/2023 Alcohol intake: current Alcohol intake frequency: holidays/special occasions only Alcohol type: beer Substance/Drug Use: never Lives independently: Yes Marital status: service: No Current occupational status: disabled Current gender identity: Male Special judi needs: No Agree to transfusion: Yes Physical Exam Const: COMMON NORMALS: no acute distress, patient oriented x3 and healthy appearing HENMT: COMMON NORMALS: normocephalic and atraumatic HEAD & SCALP: normocephalic and atraumatic Eye: COMMON NORMALS: conjunctivae normal CONJUNCTIVA: Yes conjunctivae normal Neck/C-Spine: COMMON NORMALS: full ROM and supple Chest: COMMONS NORMALS: normal inspection of the chest Resp: COMMON NORMALS: normal respiratory effort Cardio: COMMON NORMALS: regular rate, regular rhythm and No murmurs present (Cardio) RATE: regular rate RHYTHM: regular rhythm GI: COMMON NORMALS: Normal to inspection, nondistended, normoactive bowel sounds present, Soft to palpation and no masses PALPATION: Yes Soft to palpation and Yes Tenderness to palpation present (GI) Details: RUQ Extremity: COMMON NORMALS: normal to inspection and full ROM Neuro: COMMON NORMALS: patient oriented x3, moves all extremities and no focal motor deficits Psych: COMMON NORMALS: mental status grossly normal, Normal thought process present and cooperative THOUGHT PROCESS: Normal thought process present Skin: COMMON NORMALS: no rashes or lesions noted and no wounds GENERAL SKIN EXAM: no rashes or lesions noted Course Vital Signs: Vital signs: Vital Signs Temperature 98.0 F 04/09/25 11:16 Pulse Rate 83 04/09/25 11:16 Respiratory Rate 20 H 04/09/25 12:26 Blood Pressure 161/84 04/09/25 11:16 Pulse Oximetry 97 04/09/25 11:16 Oxygen Delivery Me thod Room Air 04/09/25 11:16 MDM - Abdominal Pain Medical Decision Making Patient presents with abdominal pain blood work imaging here is all negative he is to follow-up with PCP return if worsening he understands agrees to plan. Medical Records I reviewed the patient's medical records. Lab Data I reviewed the patient's lab results. 04/09/25 11:35 04/09/25 11:35 Labs/Radiology: Radiology Impressions Abdomen/Pelvis CT 04/09/25 11:36 IMPRESSION: 1. Stable 4 cm left renal mass 2. Umbilical hernia COMMENTS: Consistent with the [employer]'s Incidental Findings Committee white paper (J Am Nathalie Radiol 2018): Any incidental renal lesion less than 1 cm or classified as too small to characterize, or any incidental cystic renal lesion characterized as simple-appearing, is likely benign. No follow-up imaging is recommended for these lesions per consensus recommendations based on imaging criteria. Laboratory Results WBC 8.04 10^3/uL (3.29-11.43) 04/09/25 11:35 RBC 5.41 10^6/uL (3.85-5.65) 04/09/25 11:35 Hgb 16.70 g/dL (11.27-16.99) 04/09/25 11:35 Hct 50.5 % (37-53) 04/09/25 11:35 MCV 93.3 fl (82-101) 04/09/25 11:35 MCH 30.9 pg (27-33) 04/09/25 11:35 MCHC 33.1 g/dL (30-55) 04/09/25 11:35 RDW 13.9 % (12.1-15.1) 04/09/25 11:35 Plt Count 298 10^3/cmm (157-399) 04/09/25 11:35 MPV 9.6 fL (7.4-10.4) 04/09/25 11:35 Neut % (Auto) 54.4 % 04/09/25 11:35 Lymph % (Auto) 28.5 % 04/09/25 11:35 [place] % (Auto) 12.9 % 04/09/25 11:35 Eos % (Auto) 2.7 % 04/09/25 11:35 Baso % (Auto) 0.5 % 04/09/25 11:35 Neut # (Auto) 4.37 10^3/uL (1.8-7.7) 04/09/25 11:35 Lymph # (Auto) 2.3 10^3/uL (0.8-4.8) 04/09/25 11:35 [place] # (Auto) 1.0 10^3/uL (0.2-0.9) H 04/09/25 11:35 Eos # (Auto) 0.2 10^3/uL (0.0-0.8) 04/09/25 11:35 Baso # (Auto) 0.0 10^3/uL (0.0-0.1) 04/09/25 11:35 Nucleated RBC % (auto) 0 % 04/09/25 11:35 Nucleated RBCs # 0.0 /100WBC 04/09/25 11:35 Sodium 136 mmol/L (136-145) 04/09/25 11:35 Potassium 4.5 mmol/L (3.5-5.1) 04/09/25 11:35 Chloride 101 mmol/L (98-107) 04/09/25 11:35 Carbon Dioxide 26 mmol/L (22-29) 04/09/25 11:35 Anion Gap 13.5 (5-19) 04/09/25 11:35 BUN 16 mg/dL (6-20) 04/09/25 11:35 Creatinine 0.9 mg/dL (0.7-1.2) 04/09/25 11:35 GFR Calculation 91.3 mL/min (90-130) 04/09/25 11:35 Glucose 110 mg/dL (65-115) 04/09/25 11:35 Calculated Osmolality 284 mOsm/kg (285-295) L 04/09/25 11:35 Lactic Acid 1.1 mmol/L (0.5-2.2) 04/09/25 11:35 Calcium 9.9 mg/dL (8.5-10.5) 04/09/25 11:35 Total Bilirubin 0.4 mg/dL (0.15-1.2) 04/09/25 11:35 AST 33 U/L (0-40) 04/09/25 11:35 ALT 48 U/L (0-41) H 04/09/25 11:35 Alkaline Phosphatase 67 U/L (40-130) 04/09/25 11:35 Total Protein 7.6 g/dL (6.6-8.7) 04/09/25 11:35 Albumin 4.2 g/dL (3.5-5.2) 04/09/25 11:35 Globulin 3.4 g/dL (1.3-4.6) 04/09/25 11:35 Lipase 31 U/L (13-60) 04/09/25 11:35 Urine Color Yellow (Yellow) 04/09/25 11:30 Urine Appearance Clear (CLEAR) 04/09/25 11:30 Urine pH 6.5 (5-7) 04/09/25 11:30 Ur Specific [place] 1.019 (1.005-1.030) 04/09/25 11:30 Urine Protein Negative (Negative) 04/09/25 11:30 Urine Glucose (UA) Negative (Normal) 04/09/25 11:30 Urine Ketones Negative (Negative) 04/09/25 11:30 Urine Blood Negative (Negative) 04/09/25 11:30 Urine Nitrate Negative (Negative) 04/09/25 11:30 Urine Bilirubin Negative (Negative) 04/09/25 11:30 Urine Urobilinogen 1.0 mg/dL (Negative) 04/09/25 11:30 Ur Leukocyte Esterase Negative (Negative) 04/09/25 11:30 Urine RBC 0-2 /hpf (0-2) 04/09/25 11:30 Urine WBC 0-5 /hpf (0-5) 04/09/25 11:30 Ur Squamous Epith Cells 0-5 /hpf (0-5) 04/09/25 11:30 Amorphous Sediment Not Reportable 04/09/25 11:30 Urine Bacteria None seen /hpf (NONE) 04/09/25 11:30 Hyaline Casts 6.17 /lpf 04/09/25 11:30 All radiology interpretation(s) finalized by discharge Discharge Plan Discharge Patient Disposition: Home Clinical Impression: Abdominal pain Condition: Stable Prescriptions: New hydrocodone-acetaminophen 5-325 mg tablet 1 tab PO Q6H PRN (Reason: pain) Qty: 14 0RF ondansetron 4 mg tablet,disintegrating 4 mg PO Q6H PRN (Reason: nausea and vomiting) Qty: 14 0RF No Action amlodipine 10 mg tablet 10 mg PO DAILY Qty: 30 5RF pantoprazole 40 mg tablet,delayed release (DR/EC) 40 mg PO BID Qty: 60 2RF cyclobenzaprine 10 mg tablet 10 mg PO TID PRN (Reason: Muscle Spasm) lisinopril 20 mg tablet 20 mg PO BID allopurinol 100 mg tablet 100 mg PO DAILY triamterene-hydrochlorothiazid 37.5-25 mg tablet 1 tab PO QAM ergocalciferol (vitamin D2) 1,250 mcg (50,000 unit) capsule 1,250 mcg PO Q7D Rx Instructions: THURSDAY Discharge Orders: Discharge ED (Routine); Ordered 04/09/25 Ordered By: Bay Valle Referrals: Leatha Cifuentes FNP [Primary Care Provider, Family Practice] - 4-7 days Discharge Diet: Advance as tolerated Discharge Activity: Resume usual activity Patient Instructions: Abdominal Pain (ED), Opioid Safety Print Language: Dominican Coding Level of Care Code ED Pit Crew Support Worker for Janeth Sanchez
--- NOTE | 2025-04-09 11:36 | CTR_ITS ---
PROCEDURE INFORMATION: Exam: CT Abdomen And Pelvis With Contrast Exam date and time: 04/09/2025 12:15 PM Age: 45 years old Clinical indication: Abdominal pain; Localized; Right upper quadrant (ruq); Additional info: Abd pain TECHNIQUE: Imaging protocol: Computed tomography of the abdomen and pelvis with contrast. Radiation optimization: All CT scans at this facility use at least one of these dose optimization techniques: automated exposure control; mA and/or kV adjustment per patient size (includes targeted exams where dose is matched to clinical indication); or iterative reconstruction. Contrast material: OMNIPAQUE 350; Contrast volume: 100 ml; Contrast route: INTRAVENOUS (IV); COMPARISON: CT abdomen pelvis w con* [id number] 02/13/2025 2:09 PM RADIATION DOSE METRICS: Total DLP (mGy-cm): 1967.53 FINDINGS: Lungs: Lung bases are clear. No pleural effusion. Liver: Normal. No mass. Gallbladder and biliary ducts: The gallbladder has been resected. Pancreas: Normal. No ductal dilation. Spleen: Normal. No splenomegaly. Adrenal glands: Normal. No mass. Kidneys and ureters: There is a 4 cm diameter irregular soft tissue mass involving the medial aspect of the left kidney. Stomach and bowel: Unremarkable. No obstruction. No mucosal thickening. Appendix: No evidence of appendicitis. Intraperitoneal space: Unremarkable. No free air. No significant fluid collection. Vasculature: Unremarkable. No abdominal aortic aneurysm. Lymph nodes: Unremarkable. No enlarged lymph nodes. Urinary bladder: Unremarkable as visualized. Reproductive: Unremarkable as visualized. Bones/joints: Unremarkable. No acute fracture. Soft tissues: An umbilical hernia contains mesenteric fat and fluid. CT/CT abdomen pelvis w con* [id number] IMPRESSION: 1. Stable 4 cm left renal mass 2. Umbilical hernia COMMENTS: Consistent with the [employer]'s Incidental Findings Committee white paper (J Am Nathalie Radiol 2018): Any incidental renal lesion less than 1 cm or classified as too small to characterize, or any incidental cystic renal lesion characterized as simple-appearing, is likely benign. No follow-up imaging is recommended for these lesions per consensus recommendations based on imaging criteria.
[2025-04-09 11:40] LABS: Basophils % 0.5 %; Eosinophils # 0.2 10^3/uL (0.0-0.8); Eosinophils % 2.7 %; Hematocrit 50.5 % (37-53); Lymphocytes # 2.3 10^3/uL (0.8-4.8); Lymphocytes % 28.5 %; Mean Corpuscular HGB Conc 33.1 g/dL (30-55); Mean Corpuscular Hemoglobin 30.9 pg (27-33); Mean Corpuscular Volume 93.3 fl (82-101); Mean Platelet Volume 9.6 fL (7.4-10.4); Monocytes % 12.9 %; Neutrophils # 4.37 10^3/uL (1.8-7.7); Neutrophils % 54.4 %; Nucleated Red Blood Cells % 0 %; Platelet Count 298 10^3/cmm (157-399); Red Blood Count 5.41 10^6/uL (3.85-5.65); Red Cell Distribution Width 13.9 % (12.1-15.1); White Blood Count 8.04 10^3/uL (3.29-11.43)
[2025-04-09 11:42] LABS: Bilirubin Urine Negative (Negative); Blood Urine Negative (Negative); Glucose Urine UA Negative (Normal); Ketones Urine Negative (Negative); Leukocyte Esterase Urine Negative (Negative); Nitrate Urine Negative (Negative); Protein Urine Negative (Negative); Specific Gravity, Urine 1.019 (1.005-1.030); Urine Appearance Clear (CLEAR); Urine Color Yellow (Yellow); pH Urine 6.5 (5-7)
[2025-04-09 11:47] LABS: Bacteria Urine None Seen /hpf; Hyaline Casts Urine 6.17 /lpf; RBC Urine 0-2 /hpf (0-2); Squamous Epithelial Cell Urine 0-5 /hpf (0-5); WBC Urine 0-5 /hpf (0-5)
[2025-04-09 11:56] LABS: Alanine Aminotransferase 48 U/L (0-41); Albumin Level 4.2 g/dL (3.5-5.2); Alkaline Phosphatase 67 U/L (40-130); Anion Gap 13.5 (5-19); Aspartate Amino Transferase 33 U/L (0-40); Blood Urea Nitrogen 16 mg/dL (6-20); Calcium 9.9 mg/dL (8.5-10.5); Carbon Dioxide 26 mmol/L (22-29); Chloride 101 mmol/L (98-107); Creatinine Clr Calc Pharmacy 182.7501; Globulin 3.4 g/dL (1.3-4.6); Glomerular Filtration Rate 91.3 mL/min (90-130); Glucose 110 mg/dL (65-115); Lipase 31 U/L (13-60); Osmolality Calculated 284 mOsm/kg (285-295); Potassium 4.5 mmol/L (3.5-5.1); Sodium 136 mmol/L (136-145); Total Bilirubin 0.4 mg/dL (0.15-1.2); Total Protein 7.6 g/dL (6.6-8.7)
[2025-04-09 11:57] LABS: Lactic Sepsis W/Reflex 1.1 mmol/L (0.5-2.2)
[2025-04-09] MEDS: iohexol 350 mg/mL 500 mL Btl (per mL) IV (12:17)
[2025-04-09] MEDS: ondansetron 2 mg/ML SDV 2 mL 4 MG IVP (12:25)
[2025-04-09 12:26] VITALS: RESP 20
[2025-04-09] MEDS: morphine 4 mg/mL SDV 1 mL IVP (12:26)
[2025-04-09 12:30] VITALS: BP 166/65; PULSE 73; O2SAT 93
[2025-04-09 13:20] VITALS: BP 132/58; PULSE 71; O2SAT 94
== END 2025-04-09 13:20 | disposition home or self-care (01) ==
PROVIDERS: Emergency Medicine; Emergency Provider Emergency Medicine; PCP Nurse Practitioner Family
DX: R10.9 Unspecified abdominal pain (principal)
CPT/HCPCS: 36415; 74177; 80053; 81001; 83605; 83690; 85025; 96374; 96375; 99285; J2270; J2405

== ENCOUNTER → 2025-04-11 09:13 | Outpatient (BNVA) | payer MEDICARE, MEDICAID, SELFPAY | PROVIDERS: PCP Nurse Practitioner Family; Visit Provider Nurse Practitioner Family | DX: I10 Essential (primary) hypertension (principal); R73.9 Hyperglycemia, unspecified; E55.9 Vitamin D deficiency, unspecified; M10.9 Gout, unspecified | CPT/HCPCS: 80061; 82306; 83036; 83735; 84550 ==

== ENCOUNTER 2025-04-24 13:55 | Emergency (ER) | payer MEDICARE, MEDICAID, SELFPAY ==
[2025-04-24 14:07] VITALS: BP 141/84; PULSE 71; TEMP 36.7; O2SAT 97; BMI 51.1
[2025-04-24 14:44] LABS: Basophils # 0.1 10^3/uL (0.0-0.1); Basophils % 0.5 %; Eosinophils # 0.3 10^3/uL (0.0-0.8); Eosinophils % 3.4 %; Hematocrit 48.2 % (37-53); Lymphocytes # 2.9 10^3/uL (0.8-4.8); Lymphocytes % 28.8 %; Mean Corpuscular Hemoglobin 31.1 pg (27-33); Mean Corpuscular Volume 94.1 fl (82-101); Mean Platelet Volume 9.4 fL (7.4-10.4); Monocytes # 1.1 10^3/uL (0.2-0.9); Monocytes % 11.4 %; Neutrophils % 55.1 %; Nucleated Red Blood Cells % 0 %; Platelet Count 356 10^3/cmm (157-399); Red Blood Count 5.12 10^6/uL (3.85-5.65); Red Cell Distribution Width 13.2 % (12.1-15.1); White Blood Count 9.98 10^3/uL (3.29-11.43)
[2025-04-24 15:00] LABS: Alanine Aminotransferase 41 U/L (0-41); Albumin Level 4.1 g/dL (3.5-5.2); Alkaline Phosphatase 71 U/L (40-130); Anion Gap 15.4 (5-19); Aspartate Amino Transferase 25 U/L (0-40); Blood Urea Nitrogen 12 mg/dL (6-20); Calcium 9.3 mg/dL (8.5-10.5); Carbon Dioxide 24 mmol/L (22-29); Chloride 101 mmol/L (98-107); Creatinine Clr Calc Pharmacy 188.0701; Globulin 3.5 g/dL (1.3-4.6); Glomerular Filtration Rate 91.3 mL/min (90-130); Glucose 116 mg/dL (65-115); Lipase 23 U/L (13-60); Osmolality Calculated 283 mOsm/kg (285-295); Potassium 4.4 mmol/L (3.5-5.1); Sodium 136 mmol/L (136-145); Total Bilirubin 0.3 mg/dL (0.15-1.2); Total Protein 7.6 g/dL (6.6-8.7)
[2025-04-24 15:12] VITALS: BP 174/81; PULSE 68; O2SAT 95
--- NOTE | 2025-04-24 15:23 | ED_ITS ---
HPI - Abdominal Pain 2 General: Chief Complaint: Abdominal Pain Stated Complaint: kidney problems Time Seen by Provider: 04/24/25 15:09 Source: patient Mode of arrival: ambulatory Limitations: no limitations History of Present Illness: 45-year-old male states he has been havi ng right sided abdominal pain for months but got much worse in the last 2 days he states he is scheduled see a specialist in [place] in May he states pain sharp in nature rates an 8 out of 10 has had some nausea denies vomiting denies fevers. Associated Symptoms: Denies chills, diarrhea, dysuria, fever(s), nausea and vomiting Related Data Home Medications ?Medication ?Instructions ?Recorded ?Confirmed cyclobenzaprine 10 mg tablet 10 mg PO TID PRN Muscle S pasm 02/13/25 04/11/25 ergocalciferol (vitamin D2) 1,250 1,250 mcg PO Q7D 04/11/25 mcg (50,000 unit) capsule Previous Rx's ?Medication ?Instructions ?Recorded amlodipine 10 mg tablet 10 mg PO DAILY #30 tabs 11/01 pantoprazole 40 mg tablet,delayed 40 mg PO BID #60 tab s 03/02/25 release hydrocodone 5 mg-acetaminophen 325 1 tab PO Q6H PRN pa in #14 tabs 04/09/25 mg tablet ondansetron 4 mg disintegrating 4 mg PO Q6H PRN nausea and 04/09/25 tablet vomiting #14 tabs ciprofloxacin 0.3 %-dexamethasone 4 drp otic (ear) BID 7 days #7.5 mL 04/11/25 0.1 % ear drops,suspension lisinopril 20 mg tablet 20 mg PO BID #60 tabs triamterene 37.5 1 tab PO QAM #30 tabs mg-hydrochlorothiazide 25 mg tablet allopurinol 200 mg tablet 200 mg PO DAILY #90 tabs Allergies Allergy/AdvReac Type Severity Reaction Status Date / Time No Known Allergies Allergy Verified 04/24/25 14:13 Review of Systems 2 Const: Denies: fever(s), chills, body aches or change in appetite ENMT: Denies: throat pain or dental pain Card: Denies: chest pain Resp: Denies: dyspnea GI: Reports: abdominal pain; Denies: nausea, vomiting or diarrhea : Denies: dysuria Musc: Denies: neck pain or back pain Skin/Breast: Denies: rash Neuro: Denies: headache(s) PFSH ED 2 PFSH: Medical History Peripheral edema Vitamin D deficiency Surgical History History of laparoscopic cholecystectomy History of laparoscopic appendectomy History of umbilical hernia repair Social History Smoking and tobacco/nicotine status: current every day tobacco/nicotine user (1 pack every 3-4 days) cigarettes Alcohol intake: current Alcohol intake frequency: holidays/special occasions only Alcohol type: beer Substance/Drug Use: never Lives independently: Yes Marital status: service: No Current occupational status: disabled Current gender identity: Male Special judi needs: No Agree to transfusion: Yes Physical Exam 2 Const: COMMON NORMALS: no acute distress, patient oriented x3 and healthy appearing HENMT: COMMON NORMALS: normocephalic and atraumatic HEAD & SCALP: n ormocephalic and atraumatic Eye: COMMON NORMALS: conjunctivae normal CONJUNCTIVA: Yes conjunctivae normal Neck/C-Spine: COMMON NORMALS: full ROM and supple Chest: COMMONS NORMALS: normal inspection of the chest Resp: COMMON NORMALS: normal respiratory effort Cardio: COMMON NORMALS: regular rate RATE: regular rate GI: COMMON NORMALS: Normal to inspection, nondistended, normoactive bowel sounds present, Soft to palpation and no masses PALPATION: Yes Soft to palpation and Yes Tenderness to palpation present (GI) Details: RUQ Extremity: COMMON NORMALS: normal to inspection and full ROM Neuro: COMMON NORMALS: patient oriented x3, moves all extremities and no focal motor deficits Psych: COMMON NORMALS: mental status grossly normal, Normal thought process present and cooperative THOUGHT PROCESS: Normal thought process present Skin: COMMON NORMALS: no rashes or lesions noted and no wounds GENERAL SKIN EXAM: no rashes or lesions noted Course 2 Vital Signs: Vital signs: Vital Signs Temperature 98.1 F 04/24/25 14:07 Pulse Rate 71 04/24/25 14:07 Blood Pressure 141/84 04/24/25 14:07 Pulse Oximetry 97 04/24/25 14:07 Oxygen Delivery Me thod Room Air 04/24/25 14:07 MDM - Abdominal Pain Medical Decision Making Patient presents with abdominal pains been chronic in nature imaging here is negative he stable for discharge follow-up with PCP return if worsening. Medical Records I reviewed the patient's medical records. Lab Data I reviewed the patient's lab results. 04/24/25 14:38 04/24/25 14:38 Labs/Radiology: Radiology Impressions Abdomen/Pelvis CT 04/24/25 15:23 IMPRESSION: 1. No acute change noted 2. Stable left renal mass 3. Stable umbilical hernia COMMENTS: Consistent with the [employer]'s Incidental Findings Committee white paper (J Am Nathalie Radiol 2018): Any incidental renal lesion less than 1 cm or classified as too small to characterize, or any incidental cystic renal lesion characterized as simple-appearing, is likely benign. No follow-up imaging is recommended for these lesions per consensus recommendations based on imaging criteria. Laboratory Results WBC 9.98 10^3/uL (3.29-11.43) 04/24/25 14:38 RBC 5.12 10^6/uL (3.85-5.65) 04/24/25 14:38 Hgb 15.90 g/dL (11.27-16.99) 04/24/25 14:38 Hct 48.2 % (37-53) 04/24/25 14:38 MCV 94.1 fl (82-101) 04/24/25 14:38 MCH 31.1 pg (27-33) 04/24/25 14:38 MCHC 33.0 g/dL (30-55) 04/24/25 14:38 RDW 13.2 % (12.1-15.1) 04/24/25 14:38 Plt Count 356 10^3/cmm (157-399) 04/24/25 14:38 MPV 9.4 fL (7.4-10.4) 04/24/25 14:38 Neut % (Auto) 55.1 % 04/24/25 14:38 Lymph % (Auto) 28.8 % 04/24/25 14:38 [place] % (Auto) 11.4 % 04/24/25 14:38 Eos % (Auto) 3.4 % 04/24/25 14:38 Baso % (Auto) 0.5 % 04/24/25 14:38 Neut # (Auto) 5.50 10^3/uL (1.8-7.7) 04/24/25 14:38 Lymph # (Auto) 2.9 10^3/uL (0.8-4.8) 04/24/25 14:38 [place] # (Auto) 1.1 10^3/uL (0.2-0.9) H 04/24/25 14:38 Eos # (Auto) 0.3 10^3/uL (0.0-0.8) 04/24/25 14:38 Baso # (Auto) 0.1 10^3/uL (0.0-0.1) 04/24/25 14:38 Nucleated RBC % (auto) 0 % 04/24/25 14:38 Nucleated RBCs # 0.0 /100WBC 04/24/25 14:38 Sodium 136 mmol/L (136-145) 04/24/25 14:38 Potassium 4.4 mmol/L (3.5-5.1) 04/24/25 14:38 Chloride 101 mmol/L (98-107) 04/24/25 14:38 Carbon Dioxide 24 mmol/L (22-29) 04/24/25 14:38 Anion Gap 15.4 (5-19) 04/24/25 14:38 BUN 12 mg/dL (6-20) 04/24/25 14:38 Creatinine 0.9 mg/dL (0.7-1.2) 04/24/25 14:38 GFR Calculation 91.3 mL/min (90-130) 04/24/25 14:38 Glucose 116 mg/dL (65-115) H 04/24/25 14:38 Calculated Osmolality 283 mOsm/kg (285-295) L 04/24/25 14:38 Calcium 9.3 mg/dL (8.5-10.5) 04/24/25 14:38 Total Bilirubin 0.3 mg/dL (0.15-1.2) 04/24/25 14:38 AST 25 U/L (0-40) 04/24/25 14:38 ALT 41 U/L (0-41) 04/24/25 14:38 Alkaline Phosphatase 71 U/L (40-130) 04/24/25 14:38 Total Protein 7.6 g/dL (6.6-8.7) 04/24/25 14:38 Albumin 4.1 g/dL (3.5-5.2) 04/24/25 14:38 Globulin 3.5 g/dL (1.3-4.6) 04/24/25 14:38 Lipase 23 U/L (13-60) 04/24/25 14:38 Urine Color Dark yellow (Yellow) A 04/24/25 15:15 Urine Appearance Clear (CLEAR) 04/24/25 15:15 Urine pH 5.5 (5-7) 04/24/25 15:15 Ur Specific [place] 1.028 (1.005-1.030) 04/24/25 15:15 Urine Protein Trace (Negative) A 04/24/25 15:15 Urine Glucose (UA) Negative (Normal) 04/24/25 15:15 Urine Ketones Trace (Negative) 04/24/25 15:15 Urine Blood Negative (Negative) 04/24/25 15:15 Urine Nitrate Negative (Negative) 04/24/25 15:15 Urine Bilirubin Negative (Negative) 04/24/25 15:15 Urine Urobilinogen 1.0 mg/dL (Negative) 04/24/25 15:15 Ur Leukocyte Esterase Negative (Negative) 04/24/25 15:15 Urine RBC 0-2 /hpf (0-2) 04/24/25 15:15 Urine WBC 0-5 /hpf (0-5) 04/24/25 15:15 Ur Squamous Epith Cells 0-5 /hpf (0-5) 04/24/25 15:15 Amorphous Sediment Not Reportable 04/24/25 15:15 Urine Bacteria Trace /hpf (NONE) 04/24/25 15:15 Hyaline Casts 3.71 /lpf 04/24/25 15:15 No radiology studies performed this visit Discharge Plan Discharge Patient Disposition: Home Clinical Impression: Abdominal pain Condition: Stable Prescriptions: No Action lisinopril 20 mg tablet 20 mg PO BID Qty: 60 5RF triamterene-hydrochlorothiazid 37.5-25 mg tablet 1 tab PO QAM Qty: 30 5RF ciprofloxacin-dexamethasone 0.3-0.1 % drops,suspension 4 drp otic (ear) BID 7 Days Qty: 7.5 0RF amlodipine 10 mg tablet 10 mg PO DAILY Qty: 30 5RF pantoprazole 40 mg tablet,delayed release (DR/EC) 40 mg PO BID Qty: 60 2RF allopurinol 200 mg tablet 200 mg PO DAILY Qty: 90 0RF cyclobenzaprine 10 mg tablet 10 mg PO TID PRN (Reason: Muscle Spasm) ergocalciferol (vitamin D2) 1,250 mcg (50,000 unit) capsule 1,250 mcg PO Q7D Rx Instructions: THURSDAY hydrocodone-acetaminophen 5-325 mg tablet 1 tab PO Q6H PRN (Reason: pain) Qty: 14 0RF ondansetron 4 mg tablet,disintegrating 4 mg PO Q6H PRN (Reason: nausea and vomiting) Qty: 14 0RF Discharge Orders: Discharge ED (Routine); Ordered 04/24/25 Ordered By: Bay Valle Referrals: Leatha Cifuentes FNP [Primary Care Provider, Family Practice] - 4-7 days Discharge Diet: Advance as tolerated Discharge Activity: Resume usual activity Patient Instructions: Abdominal Pain (ED) Print Language: [place] Coding Level of Care Code ED Assessment Nurse Practitioner for Janeth Sanchez
--- NOTE | 2025-04-24 15:23 | CTR_ITS ---
PROCEDURE INFORMATION: Exam: CT Abdomen And Pelvis With Contrast Exam date and time: 04/24/2025 3:59 PM Age: 45 years old Clinical indication: Abdominal pain; Acute; Prior surgery; Surgery date: 6+ months; Surgery type: Gb hernia; Additional info: Abd pain TECHNIQUE: Imaging protocol: Computed tomography of the abdomen and pelvis with contrast. Radiation optimization: All CT scans at this facility use at least one of these dose optimization techniques: automated exposure control; mA and/or kV adjustment per patient size (includes targeted exams where dose is matched to clinical indication); or iterative reconstruction. Contrast material: OMNI 350; Contrast volume: 125 ml; Contrast route: INTRAVENOUS (IV); COMPARISON: CT abdomen pelvis w con* [id number] 04/09/2025 12:15 PM RADIATION DOSE METRICS: Total DLP (mGy-cm): 1591.83 FINDINGS: Lungs: Lung bases are clear. No pleural effusion. Liver: Normal. No mass. Gallbladder and biliary ducts: The gallbladder has been resected. Pancreas: Normal. No ductal dilation. Spleen: Normal. No splenomegaly. Adrenal glands: Normal. No mass. Kidneys and ureters: There is a 4 cm somewhat rounded, lobulated soft tissue mass involving the midpole region of the left kidney. Stomach and bowel: Unremarkable. No obstruction. No mucosal thickening. Appendix: No evidence of appendicitis. Intraperitoneal space: Unremarkable. No free air. No significant fluid collection. Vasculature: Unremarkable. No abdominal aortic aneurysm. Lymph nodes: Unremarkable. No enlarged lymph nodes. Urinary bladder: Unremarkable as visualized. Reproductive: Unremarkable as visualized. Bones/joints: Unremarkable. No acute fracture. Soft tissues: A small umbilical hernia contains mesenteric fat and fluid and there is surgical scarring here. CT/CT abdomen pelvis w con* [id number] IMPRESSION: 1. No acute change noted 2. Stable left renal mass 3. Stable umbilical hernia COMMENTS: Consistent with the [employer]'s Incidental Findings Committee white paper (J Am Nathalie Radiol 2018): Any incidental renal lesion less than 1 cm or classified as too small to characterize, or any incidental cystic renal lesion characterized as simple-appearing, is likely benign. No follow-up imaging is recommended for these lesions per consensus recommendations based on imaging criteria.
[2025-04-24 15:39] LABS: Bilirubin Urine Negative (Negative); Blood Urine Negative (Negative); Glucose Urine UA Negative (Normal); Ketones Urine Trace (Negative); Leukocyte Esterase Urine Negative (Negative); Nitrate Urine Negative (Negative); Protein Urine Trace (Negative); Specific Gravity, Urine 1.028 (1.005-1.030); Urine Appearance Clear (CLEAR); Urine Color Dark Yellow (Yellow); pH Urine 5.5 (5-7)
[2025-04-24 15:42] LABS: Add Urine Microscopic? YES; Bacteria Urine Trace /hpf; Hyaline Casts Urine 3.71 /lpf; RBC Urine 0-2 /hpf (0-2); Squamous Epithelial Cell Urine 0-5 /hpf (0-5); WBC Urine 0-5 /hpf (0-5)
[2025-04-24] MEDS: ondansetron 2 mg/ML SDV 2 mL 4 MG IVP (15:48)
[2025-04-24] MEDS: HYDROmorphone 0.5 MG/0.5 ML INJ IVP (15:48)
[2025-04-24] MEDS: iohexol 350 mg/mL 500 mL Btl (per mL) IV (16:03)
[2025-04-24 16:30] VITALS: BP 152/79; PULSE 63; O2SAT 93
[2025-04-24 17:00] VITALS: PULSE 71; O2SAT 96
[2025-04-24 17:05] VITALS: BP 138/74; PULSE 69; O2SAT 96
== END 2025-04-24 17:05 | disposition home or self-care (01) ==
PROVIDERS: Emergency Provider Emergency Medicine; PCP Nurse Practitioner Family
DX: R10.9 Unspecified abdominal pain (principal); F17.210 Nicotine dependence, cigarettes, uncomplicated
CPT/HCPCS: 36415; 74177; 80053; 81001; 83690; 85025; 96374; 96375; 99285; J1171; J2405

== ENCOUNTER → 2025-08-09 11:09 | Outpatient (BNVA) | payer MEDICARE, MEDICAID, SELFPAY | PROVIDERS: PCP Nurse Practitioner Family; Visit Provider Nurse Practitioner Family | DX: M10.9 Gout, unspecified (principal); R53.83 Other fatigue; I10 Essential (primary) hypertension; Z12.5 Encounter for screening for malignant neoplasm of prostate; R73.9 Hyperglycemia, unspecified; E55.9 Vitamin D deficiency, unspecified | CPT/HCPCS: 80053; 80061; 82306; 83036; 84443; 84550; 85025; G0103 ==

== ENCOUNTER 2025-10-27 04:12 | Emergency (ER) | payer MEDICARE, MEDICAID, SELFPAY ==
[2025-10-27 04:17] VITALS: BP 195/88; PULSE 83; RESP 16; TEMP 36.9; O2SAT 96; BMI 50.5
--- NOTE | 2025-10-27 04:17 | ECG_ITS ---
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 Measurements Intervals [place] Rate: 85 P: 50 TN: 163 QRS: 26 QRSD: 97 T: 54 QT: 376 QTc: 448 Interpretive Statements SINUS RHYTHM POSSIBLE RIGHT VENTRICULAR CONDUCTION DELAY [RSR (QR) IN V1/V2] NONSPECIFIC T-WAVE ABNORMALITY Compared to ECG 08/26/2024 14:11:04 T-wave abnormality now present Sinus bradycardia no longer present Electronically Signed On 10-28-2025 16:45:34 CLINICAL DOCUMENTATION CONSULTANT by Malcolm Byrd M.D. [email or web address]
--- NOTE | 2025-10-27 04:17 | W.ED.GENADLT ---
HPI - General Adult General: Chief complaint: Abdominal Pain Stated complaint: THROAT PAIN Time Seen by Provider: 10/27/25 04:16 History of Present Illness: 45-year-old male presents emergency room complaining of a sore throat. Patient states he has significant reflux and food getting bad he states he is burping up large amount of acid it causes severe sore throat. He is on pantoprazole he has Carafate to use as needed. He denies any hemoptysis hemoptysis or hematemesis no melena or hematochezia. No fever sweats or chills no associated shortness of breath. No dysuria urgency or frequency. No history of coronary artery disease Associated symptoms: Reports nausea; Deny chest pain, dyspnea or rash Related Data Previous Rx's ?Medication ?Instructions ?Recorded ergocalciferol (vitamin D2) 1,250 See Rx Instructions .Route 06/21/25 mcg (50,000 unit) capsule .COMPLEX #12 caps allopurinol 100 mg tablet See Rx Instructions .Route 08/09/25 .COMPLEX #60 tabs amlodipine 10 mg tablet 10 mg PO DAILY #30 tabs 08/09/25 cyclobenzaprine 10 mg tablet 10 mg PO BID PRN Muscle Spasm #60 08/09/25 tabs lisinopril 20 mg tablet 20 mg PO BID #60 tabs 08/09/25 pantoprazole 40 mg tablet,delayed 40 mg PO BID #60 tabs 08/09/25 release sucralfate 1 gram tablet (Carafate) 1 g PO TID #30 tabs 08/09/25 triamterene 37.5 1 tab PO QAM #30 tabs 08/09/25 mg-hydrochlorothiazide 25 mg tablet sucralfate 1 gram tablet (Carafate) 1 g PO Q4H #60 tabs 10/27/25 Allergies Allergy/AdvReac Type Severity Reaction Status Date / Time No Known Allergies Allergy Verified 08/09/25 10:05 Review of Systems Const: Denies: fever(s) or chills ENMT: Reports: throat pain Card: Denies: chest pain Resp: Denies: dyspnea GI: Reports: abdominal pain and nausea; Denies: hematemesis, coffee ground emesis, hematochezia or melena : Denies: dysuria, urinary frequency or urinary urgency Musc: Denies: neck pain or back pain Skin/Breast: Denies: rash PFSH ED PFSH: Medical History Peripheral edema Vitamin D deficiency Surgical History History of laparoscopic cholecystectomy History of laparoscopic appendectomy History of umbilical hernia repair Social History Smoking and tobacco/nicotine status: current every day tobacco/nicotine user (1 pack every 3-4 days) cigarettes Alcohol intake: current Alcohol intake frequency: holidays/special occasions only Alcohol type: beer Substance/Drug Use: never Lives independently: Yes Marital status: service: No Current occupational status: disabled Current gender identity: Male Special judi needs: No Agree to transfusion: Yes Physical Exam Const: COMMON NORMALS: no acute distress GENERAL APPEARANCE: cooperative and comfortable ORIENTATION/CONSCIOUSNESS: Yes awake, Yes oriented to person, Yes oriented to place and Yes oriented to time HENMT: COMMON NORMALS: normocephalic, atraumatic and hearing grossly normal bilaterally HEAD & SCALP: normocephalic and atraumatic Resp: COMMON NORMALS: normal respiratory effort, No retractions, No use of accessory muscles and clear to auscultation bilaterally AUSCULTATION: clear to auscultation bilaterally Cardio: COMMON NORMALS: regular rate, regular rhythm and No murmurs present (Cardio) RATE: regular rate RHYTHM: regular rhythm GI: COMMON NORMALS: Soft to palpation and No hepatosplenomegaly present AUSCULTATION: Yes normoactive bowel sounds PALPATION: Yes Soft to palpation, No Tenderness to palpation present (GI), No Guarding due to palpation present (GI) and Yes No hepatosplenomegaly present Extremity: COMMON NORMALS: normal to inspection, capillary refill normal, no clubbing, cyanosis or edema, no calf tenderness and no pedal edema Neuro: SENSORIUM/ORIENTATION: Yes oriented to person, Yes oriented to place and Yes oriented to time Skin: COMMON NORMALS: no rashes or lesions noted GENERAL SKIN EXAM: no rashes or lesions noted Course Vital Signs: Vital signs: Vital Signs Temperature 98.5 F 10/27/25 04:23 Pulse Rate 77 10/27/25 06:06 Respiratory Rate 18 10/27/25 05:39 Blood Pressure 145/68 10/27/25 06:06 Pulse Oximetry 94 10/27/25 06:06 Oxygen Delivery Me thod Room Air 10/27/25 04:23 MDM - General Adult Medical Decision Making Medical decision making Social determinants: None I reviewed the patient's medical record. I reviewed the patient's current home meds Alternate historians: None Differential diagnosis acute coronary syndrome versus reflux with esophagitis Lab Review: Labs reviewed as found in the chart no evidence of acute upper GI bleed troponin 10. EKG shows no acute changes Imaging: None Assessment of risk: Level of risk: Low Hospitalization considerations: Not considered Reexamination: Improved after GI cocktail. No chest pain no difficulty breathing lung sounds clear Assessment and plan: Patient has had significant difficulty in the past with reflux he has relief of symptoms with GI cocktail today he has been out of his Carafate he was given another prescription for this continue on his pantoprazole and follow-up with his primary care doctor. Will refer to surgery for possible EGD Medical Records I reviewed the patient's medical records. Lab Data I reviewed the patient's lab results. 10/27/25 04:00 10/27/25 04:00 Laboratory Results WBC 7.89 10^3/uL (3.29-11.43) 10/27/25 04:00 RBC 5.28 10^6/uL (3.85-5.65) 10/27/25 04:00 Hgb 16.10 g/dL (11.27-16.99) 10/27/25 04:00 Hct 47.4 % (37-53) 10/27/25 04:00 MCV 89.8 fl (82-101) 10/27/25 04:00 MCH 30.5 pg (27-33) 10/27/25 04:00 MCHC 34.0 g/dL (30-55) 10/27/25 04:00 RDW 13.2 % (12.1-15.1) 10/27/25 04:00 Plt Count 394 10^3/cmm (157-399) 10/27/25 04:00 MPV 9.2 fL (7.4-10.4) 10/27/25 04:00 Neut % (Auto) 48.8 % 10/27/25 04:00 Lymph % (Auto) 35.9 % 10/27/25 04:00 [place] % (Auto) 9.8 % 10/27/25 04:00 Eos % (Auto) 3.4 % 10/27/25 04:00 Baso % (Auto) 0.5 % 10/27/25 04:00 Neut # (Auto) 3.85 10^3/uL (1.8-7.7) 10/27/25 04:00 Lymph # (Auto) 2.8 10^3/uL (0.8-4.8) 10/27/25 04:00 [place] # (Auto) 0.8 10^3/uL (0.2-0.9) 10/27/25 04:00 Eos # (Auto) 0.3 10^3/uL (0.0-0.8) 10/27/25 04:00 Baso # (Auto) 0.0 10^3/uL (0.0-0.1) 10/27/25 04:00 Nucleated RBC % (auto) 0 % 10/27/25 04:00 Nucleated RBCs # 0.0 /100WBC 10/27/25 04:00 Sodium 136 mmol/L (136-145) 10/27/25 04:00 Potassium 3.3 mmol/L (3.5-5.1) L 10/27/25 04:00 Chloride 100 mmol/L (98-107) 10/27/25 04:00 Carbon Dioxide 23 mmol/L (22-29) 10/27/25 04:00 Anion Gap 16.3 (5-19) 10/27/25 04:00 BUN 13 mg/dL (6-20) 10/27/25 04:00 Creatinine 0.9 mg/dL (0.7-1.2) 10/27/25 04:00 GFR Calculation 91.3 mL/min (90-130) 10/27/25 04:00 Glucose 180 mg/dL (65-115) H 10/27/25 04:00 Calculated Osmolality 287 mOsm/kg (285-295) 10/27/25 04:00 Calcium 9.1 mg/dL (8.5-10.5) 10/27/25 04:00 Troponin T Baseline 10 ng/L (0-15) 10/27/25 04:00 No radiology studies performed this visit EKG Data EKG 1: I personally reviewed and interpreted this EKG as follows: Interpretation: EKG 10/27/2025 417 sinus rhythm. Rate of 85. [place] 163 QTc [address] changes are noted. Compared to EKG 08/26/2024 no changes Discharge Plan Discharge Patient Disposition: Home Clinical Impression: GERD with esophagitis Condition: Stable Prescriptions: New sucralfate [Carafate] 1 gram tablet 1 g PO Q4H Qty: 60 0RF No Action sucralfate [Carafate] 1 gram tablet 1 g PO TID Qty: 30 0RF triamterene-hydrochlorothiazid 37.5-25 mg tablet 1 tab PO QAM Qty: 30 5RF pantoprazole 40 mg tablet,delayed release (DR/EC) 40 mg PO BID Qty: 60 5RF lisinopril 20 mg tablet 20 mg PO BID Qty: 60 5RF cyclobenzaprine 10 mg tablet 10 mg PO BID PRN (Reason: Muscle Spasm) Qty: 60 5RF amlodipine 10 mg tablet 10 mg PO DAILY Qty: 30 5RF allopurinol 100 mg tablet See Rx Instructions .ROUTE .COMPLEX Qty: 60 5RF Dose Instruction: TAKE TWO TABLETS BY MOUTH DAILY Rx Instructions: TAKE TWO TABLETS BY MOUTH DAILY ergocalciferol (vitamin D2) 1,250 mcg (50,000 unit) capsule See Rx Instructions .ROUTE .COMPLEX Qty: 12 1RF Dose Instruction: TAKE ONE CAPSULE BY MOUTH EVERY SEVEN DAYS ON THURSDAY Rx Instructions: TAKE ONE CAPSULE BY MOUTH EVERY SEVEN DAYS ON THURSDAY Discharge Orders: Discharge ED (Routine); Ordered 10/27/25 Ordered By: Colt Amaya Referrals: Leatha Cifuentes FNP [Primary Care Provider, Family Practice] Discharge Diet: As Directed Discharge Activity: Resume usual activity Patient Instructions: Chest Pain (ED), Diet for Stomach Ulcers and Gastritis (ED), GERD (Gastroesophageal Reflux Disease) (ED), Abdominal Pain (ED), Opioid Safety, Pain Management, Patient Portal & Ines Instructions Activity Restrictions/Additional Instructions: Thank you for choosing [facility] for your healthcare needs today. It is very important that you follow up as instructed or that you return to the Emergency Department should you have concerns or if your condition changes or worsens in any way. Emergency department visits are focused on emergent conditions, in some cases you may require further evaluation on an outpatient basis. You are seen emergency room with complaint of epigastric pain radiating up into the chest your EKG and cardiac enzymes were normal. Based on your description of symptoms and history believe this is probably from reflux with esophagitis. Continue to take your pantoprazole 1 pill twice a day will also start you on Carafate 1 pill every 4 hours as needed to relieve the immediate symptoms. 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 (Please note that included in your discharge packet is information concerning opioid safety and pain management. This information is given to all patients were discharged from the ER regardless of their discharge diagnosis or the medicines they usually take or are prescribed.) Print Language: [place] Coding Level of Care Code ED Business Team Leader for Janeth Sanchez
[2025-10-27 04:23] VITALS: BP 195/88; PULSE 83; RESP 16; TEMP 36.9; O2SAT 96
[2025-10-27 04:33] LABS: Hematocrit 47.4 % (37-53); Hemoglobin 16.10 g/dL (11.27-16.99); Mean Corpuscular HGB Conc 34.0 g/dL (30-55); Mean Corpuscular Hemoglobin 30.5 pg (27-33); Mean Corpuscular Volume 89.8 fl (82-101); Nucleated Red Blood Cells % 0 %; Platelet Count 394 10^3/cmm (157-399); Red Blood Count 5.28 10^6/uL (3.85-5.65); White Blood Count 7.89 10^3/uL (3.29-11.43)
[2025-10-27] MEDS: lidocaine 2% viscous 15 ML, aluminum-mag hydrox-simethicon 30 ML, sucralfate oral liq 1 GM PO ×2 (04:36→05:39)
[2025-10-27 04:55] LABS: Anion Gap 16.3 (5-19); Blood Urea Nitrogen 13 mg/dL (6-20); Calcium 9.1 mg/dL (8.5-10.5); Carbon Dioxide 23 mmol/L (22-29); Chloride 100 mmol/L (98-107); Glucose 180 mg/dL (65-115); Osmolality Calculated 287 mOsm/kg (285-295); Potassium 3.3 mmol/L (3.5-5.1); Sodium 136 mmol/L (136-145)
[2025-10-27 05:00] VITALS: BP 161/86; PULSE 85; RESP 17; O2SAT 95
[2025-10-27 05:39] VITALS: BP 143/72; PULSE 88; RESP 18; O2SAT 96
[2025-10-27 05:41] LABS: Troponin(5th) Baseline 10 ng/L (0-15)
[2025-10-27 06:06] VITALS: BP 145/68; PULSE 77; O2SAT 94
--- NOTE | 2025-10-30 07:26 | DCPLANNER ---
messaged general surgery for er f/u
== END 2025-10-27 06:07 | disposition home or self-care (01) ==
PROVIDERS: Emergency Provider Family Medicine; PCP Nurse Practitioner Family
DX: K21.00 Gastro-esophageal reflux disease with esophagitis, without bleeding (principal); F17.210 Nicotine dependence, cigarettes, uncomplicated
CPT/HCPCS: 80048; 84484; 85025; 93005; 99284; J9999